=== PATIENT | female | born 1935 | race Caucasian/White ===

== ENCOUNTER 2016-06-17 09:57 | Inpatient (IN) | payer OTHER ==
[~2016-06-17] VITALS: Ht 160 cm; Wt 83.3 kg
[~2016-06-17 09:57] MED LIST: ASPI81TA28 PO; B-COCAP2 PO; CLR10 PO; FURO-85 PO; LAVAGE SOLUTION 4000ML PO SCH; LEVO-366 PO; LEVO150T PO; LOSA50TA6 PO; ONDA4TAB46 PO; PENT400T PO; SIMV40TA2 PO; areds PO; prednisone
[2016-06-17] MEDS ORDERED: ONDANSETRON INJ 2 MG/ML 2 ML VIAL IV STA (11:42)
[2016-06-17 12:05] LABS: MEAN CORPUSCULAR HGB CONC 33.3 g/dl (32-36); MEAN PLATELET VOLUME 11.1 fL (7.4-10.4); PLATELET COUNT 208 K/uL (130-400)
[2016-06-17 12:37] LABS: PARTIAL THROMBOPLASTIN RATIO 2.8; PROTHROMBIN TIME (PATIENT) 10.9 SECONDS (9.0-12.0)
[2016-06-17 12:38] LABS: ALB/GLOB RATIO 0.8 (0.9-2); BUN/CREATININE RATIO 21.7 (10-20); CALCIUM 8.6 mg/dl (8.5-10.1); CREATININE 5.2 mg/dl (0.60-1.20)
[2016-06-17 12:49] LABS: BASO % 0.3 %; BASO ABS # 0.02 K/uL (0-0.2); COMPLETE YES; EOS % 1.5 %; HEMATOCRIT 27.6 % (37-47); IG% 0.5 %; LYMPH ABS # 0.79 K/uL (1.2-3.4); MEAN CELL VOLUME 87.3 fL (80-100); MEAN CORPUSCULAR HEMOGLOBIN 29.1 pg (25-34); MONO % 14.7 %; RED BLOOD COUNT 3.16 M/uL (4.2-5.4)
[2016-06-17] MEDS ORDERED: SODIUM CHLORIDE 0.9% 1000ML 1,000 ML IV STA ×2 (13:00→15:05)
[2016-06-17 14:11] VITALS: Ht 160 cm; Wt 83.3 kg
[2016-06-17] MEDS ORDERED: ALUMINUM/MAGNESIUM/SIMETH (MAALOX MAX) 30 ML UDC PO PRN (14:45)
[2016-06-17] MEDS ORDERED: MAGNESIUM HYDROXIDE SUSP 30 ML UDC PO PRN (14:45)
[2016-06-17] MEDS ORDERED: ONDANSETRON INJ 2 MG/ML 2 ML VIAL IV PRN (14:45)
[2016-06-17] MEDS ORDERED: POLYETHYLENE (MIRALAX) 17 GM PACK PO PRN (14:45)
[2016-06-17] MEDS ORDERED: SODIUM CHLORIDE 0.9% 1000ML 1,000 ML IV SCH (15:00)
[2016-06-17] MEDS ORDERED: DiphenhydrAMINE INJ 12.5 MG in SYRINGE 0 ML IV PRN (15:00)
[2016-06-17] MEDS ORDERED: DiphenhydrAMINE HCL 50 MG/ML VIAL IV PRN (15:15)
[2016-06-17] MEDS ORDERED: CYCLOBENZAPRINE HCL 10 MG TAB PO STA (15:46)
[2016-06-17 16:04] VITALS: BP 129/71; PULSE 94; TEMP 36.6; O2SAT 96
[2016-06-17] MEDS: ACETAMINOPHEN 325 MG TAB PO PRN (16:17)
[2016-06-17] MEDS: SODIUM CHLORIDE 0.9% 1000ML 1,000 ML IV SCH (16:17)
[2016-06-17 16:50] VITALS: O2SAT 96
--- NOTE | 2016-06-17 17:05 | History and Physical ---
History & Physical Date & Time of Service: Jun 17, 2016 at 15:57 Chief Complaint: Acute Kidney Injury Primary Care Physician: Aurelio Chew M.D. History of Present Illness Source: patient, family (son and daughter) Pt is an 80 year old female with a history of HTN, CKD III, peripheral arterial disease and venous insufficiency with chronic L leg wounds, and AAA measuring 5.0 cm on 03/05/16 who presented to the hospital for two days of rectal bleeding. Her son describes the bleeding as bright red with dark brown stool, and estimates about one cup in total, which has been gradually worsening over the last two days. He reports no melena. She has had worsening diarrhea and fatigue over the last few days as well. She has been on multiple antibiotics recently for non-healing L leg ulcers secondary to her vascular disease and a fall in November 2015. She is currently on day 12 of 14 of Levaquin, which she was started after a wound culture from a debridement was positive for Staph. She also reports nausea and vomiting secondary to the antibiotics. She reports occasional bilateral lower abdominal pain, but no increased pain acutely. She reports a history of hemorrhoids since having her children decades ago, but has never had bleeding like this before. Her last colonoscopy was in her early 70s, at which time an adenomatous polyp was noted. Her son reports that she has generally been declining in health since her fall in November 2015. She broke her arm at that time and has had problems with the non- healing leg wounds requiring wound care. In addition, she has had a diffuse itchy rash mostly on her arms and legs secondary to the antibiotics. She estimates the rash has been present approximately 2 months. The rash has not extended to her face. She has been treating this with Benadryl and cortisone. Regarding her AAA, she reports that this has been stable and that her surgeon recommended against any surgery. She had two surgeries in April 2016 addressing her peripheral vascular disease. For HTN, she is on Losartan and Lasix. Son also notes that she has been extremely inactive for the past 2 weeks and though she can ambulate independently, does so much less. She has been largely immobile over the last couple of weeks and has been mostly lying in bed. She reports decreased appetite, and over the last 6 months there is an estimated 25 pound weight loss. There are major stressors at home particularly the state of health of her who was recently admitted for CHF and is currently at [facility] for rehabilitation. She has had back pain over this time period as well, which she describes as spasms in her bilateral lower back, for which she normally takes Tylenol. She lives at home with her . The son is currently living in the house with them to provide daily care. She was generally independent prior to her fall, but has needed help from her son with ADLs since then. At this time she denies any chest pain or shortness of breath She denies fevers, chills or nightsweats No nausea or vomiting at this time. Past Medical/Surgical History Medical Problems: (1) Hypertension Status: Chronic Family History Patient reports no known family medical history. Mother with anemia. Father of AAA. Two sisters with AAA and cousin with brain aneurysm. Social History Smoking Status: Former Smoker (40 pack year; quit 20 years ago) Alcohol Use: occasionally Drug Use: none Marital Status: Housing status: lives with family (son lives at [employer] with them) Occupational Status: retired Multi-Drug Resistant Organisms History of MDRO: No Allergies Coded Allergies: Erythromycin (Verified Allergy, Intermediate, RASH, 06/17/16) Iodinated Diagnostic Agents (Verified Allergy, Intermediate, RASH, 06/17/16 ) Latex1 -Allergic Contact Dermititis (Verified Allergy, Mild, RASH, 06/17/16 ) Uncoded Allergies: ALL "RUBEN" (Allergy, Unknown, UNKNOWN, 11/13/08) Home Medications Scheduled Aspirin (Aspirin Ec), 81 MG PO DAILY Furosemide (Lasix), 1 TAB PO DAILY Levofloxacin (Levaquin), 500 MG PO DAILY Levothyroxine Sodium (Synthroid), 150 MCG PO DAILY Losartan Potassium (Cozaar), 50 MG PO DAILY Pentoxifylline (Trental), 400 MG PO TID Simvastatin (Zocor), 40 MG PO DAILY [areds], 1 TAB PO BID Scheduled PRN Ondansetron Hcl (Zofran), 4 MG PO for Nausea Review of Systems Constitutional: + fatigue, + weight loss ENT: + nasal symptoms (congestion) Respiratory: No cough, No shortness of breath Cardiovascular: No chest pain Abdomen: + nausea Genitourinary - Female: No dysuria Psychiatric: + depression symptoms Endocrine: + fatigue Integumentary: + itch, + rash Physical Exam Vital Signs Date Time Temp Pulse Resp B/P Pulse Ox O2 Delivery O2 Flow Rate FiO2 06/17/16 14:11 Room Air 06/17/16 14:00 85 19 129/60 98 Room Air 06/17/16 13:53 84 06/17/16 12:00 91 16 137/91 98 Room Air 06/17/16 10:22 82 06/17/16 10:05 36.4 86 20 108/52 95 Room Air General Appearance: WD/WN, + mild distress, + pertinent finding (Elderly female lying in bed, mild distress secondary to back pain. ) Head: normocephalic, atraumatic Eyes: normal inspection, PERRL, EOMI, sclerae normal, + pertinent finding ( Conjunctival pallor. ) ENT: hearing grossly normal, + nasal congestion Neck: supple, no adenopathy, no JVD, no carotid bruits, trachea midline Respiratory/Chest: lungs clear, normal breath sounds, no respiratory distress, no accessory muscle use Cardiovascular: regular rate, rhythm, no gallop, + pertinent finding (2/6 systolic murmur best heard at the L lower sternal border. 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 Dressing in place over L tibial area. 1+ edema in BLE. ) Neurologic/Psych: no motor/sensory deficits, alert, oriented x 3 Skin: warm/dry, + pallor, + pertinent finding (Diffuse patchy erythematous rash to arms, hands, legs, and lower abdomen. ) Lymphatic: no adenopathy Diagnostics Laboratory Results Results Past 24 Hours Test 06/17/16 11:40 Range/Units White Blood Count 6.60 4.8-10.8 K/uL Red Blood Count 3.16 4.2-5.4 M/uL Hemoglobin 9.2 12.0-16.0 g/dL Hematocrit 27.6 37-47 % Mean Corpuscular Volume 87.3 80-100 fL Mean Corpuscular Hemoglobin 29.1 25-34 pg Mean Corpuscular Hemoglobin Concent 33.3 32-36 g/dl Platelet Count 208 130-400 K/uL Mean Platelet Volume 11.1 7.4-10.4 fL Neutrophils (%) (Auto) 71.0 % Lymphocytes (%) (Auto) 12.0 % Monocytes (%) (Auto) 14.7 % Eosinophils (%) (Auto) 1.5 % Basophils (%) (Auto) 0.3 % Neutrophils # (Auto) 4.69 1.4-6.5 K/uL Lymphocytes # (Auto) 0.79 1.2-3.4 K/uL Monocytes # (Auto) 0.97 0.11-0.59 K/uL Eosinophils # (Auto) 0.10 0-0.5 K/uL Basophils # (Auto) 0.02 0-0.2 K/uL RDW Standard Deviation 55.7 36.4-46.3 fL RDW Coefficient of Variation 17.4 11.5-14.5 % Immature Granulocyte % (Auto) 0.5 % Immature Granulocyte # (Auto) 0.03 0.00-0.02 K/uL Prothrombin Time 10.9 9.0-12.0 SECONDS Prothromb Time International Ratio 1.0 0.9-1.1 Activated Partial Thromboplast Time 73.5 21.0-31.0 SECONDS Partial Thromboplastin Ratio 2.8 Sodium Level 141 136-145 mmol/L Potassium Level 5.0 3.5-5.1 mmol/L Chloride Level 109 98-107 mmol/L Carbon Dioxide Level 18 21-32 mmol/L Anion Gap 14.0 3-11 mmol/L Blood Urea Nitrogen 113 7-18 mg/dl Creatinine 5.20 0.60-1.20 mg/dl Est Creatinine Clear Calc Drug Dose 8.8 ml/min Estimated GFR () 8.4 Estimated GFR (Non- 7.2 BUN/Creatinine Ratio 21.7 10-20 Random Glucose 98 70-99 mg/dl Calcium Level 8.6 8.5-10.1 mg/dl Total Bilirubin 0.3 0.2-1 mg/dl Aspartate Amino Transf (AST/SGOT) 19 15-37 U/L Alanine Aminotransferase (ALT/SGPT) 14 12-78 U/L Alkaline Phosphatase 60 45-117 U/L Total Protein 6.0 6.4-8.2 gm/dl Albumin 2.7 3.4-5.0 gm/dl Globulin 3.3 2.5-4.0 gm/dl Albumin/Globulin Ratio 0.8 0.9-2 Prealbumin 24.2 20-40 mg/dl Diagnostic Radiology CT abdomen without contrast pending at this time. EKG No EKG at this time Impression Assessment and Plan Pleasant 80 year old female with a history of CKD III, peripheral arterial disease and venous insufficiency with chronic L leg wounds, and AAA measuring 5.0 cm. She presents today with a history of acute rectal bleeding and LOLA. Rectal bleeding - Differential diagnosis for the bleeding includes C.difficile coliti, hemorrhoids, colon cancer, diverticular bleeding, . - Aromas study to further assess would be CT with contrast but given elected Cr 5.2, will evaluate with a CT abdomen/pelvis non-contrast with colon prep - Will obtain Hemoccult stool - C. difficile toxin assay pending - Will hold Levaquin at this time. - Trend H&H as below New onset anemia - Hemoglobin of 9.2, down from her baseline of 12-13. INR is stable at 1.0. - Will continue to monitor H&H q6h as well as CBC daily. - Pt is typed and crossed. Will plan to transfuse if her Hb falls below 7.0. - Currently no evidence of ongoing bleeding - Would also consider nutritional etiology given poor PO intake and weight loss: will check B12, folate and iron studies LOLA on background of CKD III - Cr 5.2 today; 1.1. Creatinine is currently 5.2. ; BUN/Cr ratio > 20 suggestive of pre-renal etiology - NSS bolus 1 L, then 125 mL/hr NS continuous. - Will monitor BMP today at 1800; daily checks - Avoid nephrotoxins. Chronic leg wounds secondary to venous insufficiency and peripheral arterial disease/lymphedema. - Will consult wound care, as they have been involved with patient Drug rash likely related to antibiotics - Will give Benadryl and discontinue Levaquin at this time. Chronic back pain - Likely in part due to immobility and deconditioning - Require frequent repositioning - Can attempt heat and/or cold packs - Will treat with Flexeril and Tylenol PRN. NO NSAIDs given rectal bleeding. Infrarenal AAA - This has been stable per pt, currently measuring 5.0 cm. - Seen at [facility] for evaluation; noted that she is not a candidate for corrective surgery - Will further assess this with abd/pelvis CT; noted that study is suboptimal without contrast - Low suspicion for rupture given hemodynamic stability Depression - History of reduced desire to move, low mood and weight loss - Superimposing depression a poor prognostic factor for recovery, will try and identify during hospitalization - Will allow overnight with attempted pain control and re-assess Failure to thrive/Weight loss - Will obtain prealbumin to assess metabolic state. - Will consult nutrition as well as PT/OT. - Will consult nutrition DVT prophylaxis - Will hold on anticoagulation at this point due to drop in H&H - SCD Disposition - Med/Surg Level of Care Med/Surg Advanced Directives Existing Advance Directive: Yes Existing Living Will: Yes Existing Power of Radio Dispatcher: Yes Resuscitation Status FULL RESUSCITATION VTE Prophylaxis VTE Risk Assessment Done? Y/N: Yes Risk Level: Moderate Given or contraindicated: SCD's (As tolerated s/p chronic leg wounds) Reviewed: Pt Seen/Exam by Me History 80 y/o F here with rectal bleeding and noted to have acute renal failure Constitutional: denies: fever Respiratory: negative: short of breath Cardiovascular: denies chest pain Gastrointestinal/Abdominal: positive: other (rectal bleeding) General Appearance: no apparent distress Respiratory: lungs clear, no respiratory distress Cardiovascular: regular rate, rhythm Gastrointestinal: normal bowel sounds, non tender, soft Neurologic/Psychiatric: alert, oriented x 3 Skin Characteristics: warm/dry Assessment/Plan I have reviewed the medical record and performed a history and physical examination of this patient today. I have discussed the case with Dr. Rubio. The above note reflects my findings, conclusions, and recommendations.
[2016-06-17] MEDS ORDERED: SODIUM CHLORIDE 0.65% NA SOLN 45 ML (OCEAN) PRN (18:00)
--- NOTE | 2016-06-17 18:04 | DIAGNOSTIC IMAGING REPORT ---
ABDOMEN AND PELVIS CT WITH ORAL CONTRAST CT DOSE: 782.46 mGy.cm HISTORY: Rectal bleeding. Diarrhea. TECHNIQUE: Multiaxial CT images of the abdomen and pelvis were performed following the use of oral contrast. COMPARISON STUDY: Abdomen and pelvis CT 02/24/2016. FINDINGS: The lung bases are clear. No pneumoperitoneum. No pneumatosis. No suspicious lytic or blastic osseous lesions. No hepatic or splenic masses. Stable intra and extra hepatic bile duct dilatation. The unenhanced pancreas and right adrenal gland are unremarkable. Prior cholecystectomy. Stable scarring and a focal calcification within the upper pole the left kidney. No hydronephrosis. Stable 1 cm right renal hypodense lesion. No retroperitoneal lymphadenopathy. 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 Persistent aneurysmal dilatation of the juxtarenal abdominal aorta. This measures up to 4.9 x 4.0 cm. This remains unchanged. The bladder is unremarkable. A 2.7 cm cyst within the left ovary remains stable. Colonic diverticulosis. No bowel wall thickening or obstruction. The appendix appears to be surgically absent. A 3 cm left adrenal nodule is again noted. IMPRESSION: 1. No bowel wall thickening or obstruction. 2. No change in the 4.9 x 4.0 cm juxtarenal abdominal aortic aneurysm. 3. No change in the chronically occluded right common iliac artery. 4. Colonic diverticulosis. 5. No change in the intra and extra hepatic bile duct dilatation. Prior cholecystectomy. 6. A 2.7 cm left ovarian cyst, unchanged. 7. A stable 3 cm left adrenal gland nodule. Electronically signed by: Weston Hyman M.D. 06/17/2016 6:01 PM Dictated Date/Time: 06/17/2016 5:52 PM
[2016-06-17 18:13] LABS: HEMATOCRIT 28.6 % (37-47)
--- NOTE | 2016-06-17 18:32 | EMERGENCY ROOM VISIT NOTE ---
History Report prepared by Lluvia: Jhonny Romero Under the Supervision of: Dr. Hitesh Howard M.D. First contact with patient: 11:30 Chief Complaint: RECTAL BLEEDING Stated Complaint: RECTAL BLEEDING/DIARRHEA Nursing Triage Summary: Patient presents via EMS c/o rectal bleeding and diarrhea x48 hrs. EMS states patients stool brown, incontinent. Patient states bright red blood noted when wiping. EMS states patient has been on antibiotics since January for Left foot wound. Dressing noted to left foot. Patient seen at wound care for left foot wound. Patient c/o dizziness when standing and left shoulder pain due to prior injury. Hx of hemorrhoids. History of Present Illness The patient is an 80 year old female who presents to the Emergency Room with complaints of acute blood in her stool that she noticed today. The patient has been experiencing vomiting and watery diarrhea for the past two days. She has also been becoming progressively weaker. Her son also states that she has not eaten any solid food in about 32 hours. The patient denies any fevers or abdominal pain. The patient has a history of hemorrhoids. She experiences chronic lower back pain secondary to spinal stenosis. She takes Tylenol and Advil for the chronic pain. The patient follows up at the wound clinic for an ulceration to her left leg. She is currently on Levaquin. The patient was on Bactrim and Cephalexin prior to the Levaquin. She denies any blood thinner use. Source of History: patient, family (son) Onset: today Position: other (rectal) Quality: other (blood in stool) Timing: other (acute) Associated Symptoms: + diarrhea, + vomiting, + weakness, No abdominal pain, No fevers Review of Systems See HPI for pertinent positives & negatives. A total of 10 systems reviewed and were otherwise negative. Past Medical & Surgical Medical Problems: (1) Acute kidney injury (2) Hypertension Family History Patient reports no known family medical history. Social History Smoking Status: Former Smoker Drug Use: none Marital Status: Housing Status: lives with family Occupation Status: retired Current/Historical Medications Scheduled Aspirin (Aspirin Ec), 81 MG PO DAILY Furosemide (Lasix), 1 TAB PO DAILY Levofloxacin (Levaquin), 500 MG PO DAILY Levothyroxine Sodium (Synthroid), 150 MCG PO DAILY Losartan Potassium (Cozaar), 50 MG PO DAILY Pentoxifylline (Trental), 400 MG PO TID Simvastatin (Zocor), 40 MG PO DAILY [areds], 1 TAB PO BID Scheduled PRN Ondansetron Hcl (Zofran), 4 MG PO for Nausea Allergies Coded Allergies: Erythromycin (Verified Allergy, Intermediate, RASH, 06/17/16) Iodinated Diagnostic Agents (Verified Allergy, Intermediate, RASH, 06/17/16 ) Latex1 -Allergic Contact Dermititis (Verified Allergy, Mild, RASH, 06/17/16 ) Uncoded Allergies: ALL "RUBEN" (Allergy, Unknown, UNKNOWN, 11/13/08) Physical Exam Vital Signs Date Time Temp Pulse Resp B/P Pulse Ox O2 Delivery O2 Flow Rate FiO2 06/17/16 14:11 Room Air 06/17/16 14:00 85 19 129/60 98 Room Air 06/17/16 13:53 84 06/17/16 12:00 91 16 137/91 98 Room Air 06/17/16 10:22 82 06/17/16 10:05 36.4 86 20 108/52 95 Room Air Physical Exam Constitutional: Vital signs reviewed. Eyes: Pupils are equal round reactive to light. Conjunctiva are noninjected. ENT: Pharynx is clear without erythema or exudate. Mucous membranes are dry. Neck supple without meningeal signs. Respiratory: Clear to auscultation bilaterally. Breath sounds are equal bilaterally. Cardiovascular: Regular rate and rhythm. No rubs or gallops. GI: Soft, nondistended and nontender. Bowel sounds are present. Musculoskeletal: Bilateral lower extremity edema. Bandaged ulceration on the left leg. Neurological: The patient is awake and alert. No focal deficits. Psychiatric: Normal affect. Rectal: External hemorrhoids. Guaiac positive brown stool. Medical Decision & Procedures Laboratory Results 06/17/16 11:40 Red Blood Count 3.16, Mean Corpuscular Volume 87.3, Mean Corpuscular Hemoglobin 29.1, Mean Corpuscular Hemoglobin Concent 33.3, Mean Platelet Volume 11.1, Neutrophils (%) (Auto) 71.0, Lymphocytes (%) (Auto) 12.0, Monocytes (%) (Auto) 14.7, Eosinophils (%) (Auto) 1.5, Basophils (%) (Auto) 0.3, Neutrophils # (Auto ) 4.69, Lymphocytes # (Auto) 0.79, Monocytes # (Auto) 0.97, Eosinophils # (Auto ) 0.10, Basophils # (Auto) 0.02 Test 06/17/16 11:40 White Blood Count 6.60 K/uL (4.8-10.8) Red Blood Count 3.16 M/uL (4.2-5.4) Hemoglobin 9.2 g/dL (12.0-16.0) Hematocrit 27.6 % (37-47) Mean Corpuscular Volume 87.3 fL (80-100) Mean Corpuscular Hemoglobin 29.1 pg (25-34) Mean Corpuscular Hemoglobin Concent 33.3 g/dl (32-36) Platelet Count 208 K/uL (130-400) Mean Platelet Volume 11.1 fL (7.4-10.4) Neutrophils (%) (Auto) 71.0 % Lymphocytes (%) (Auto) 12.0 % Monocytes (%) (Auto) 14.7 % Eosinophils (%) (Auto) 1.5 % Basophils (%) (Auto) 0.3 % Neutrophils # (Auto) 4.69 K/uL (1.4-6.5) Lymphocytes # (Auto) 0.79 K/uL (1.2-3.4) Monocytes # (Auto) 0.97 K/uL (0.11-0.59) Eosinophils # (Auto) 0.10 K/uL (0-0.5) Basophils # (Auto) 0.02 K/uL (0-0.2) RDW Standard Deviation 55.7 fL (36.4-46.3) RDW Coefficient of Variation 17.4 % (11.5-14.5) Immature Granulocyte % (Auto) 0.5 % Immature Granulocyte # (Auto) 0.03 K/uL (0.00-0.02) Prothrombin Time 10.9 SECONDS (9.0-12.0) Prothromb Time International Ratio 1.0 (0.9-1.1) Activated Partial Thromboplast Time 73.5 SECONDS (21.0-31.0) Partial Thromboplastin Ratio 2.8 Est Creatinine Clear Calc Drug Dose 8.8 ml/min Total Bilirubin 0.3 mg/dl (0.2-1) Aspartate Amino Transf (AST/SGOT) 19 U/L (15-37) Alanine Aminotransferase (ALT/SGPT) 14 U/L (12-78) Alkaline Phosphatase 60 U/L (45-117) Total Protein 6.0 gm/dl (6.4-8.2) Albumin 2.7 gm/dl (3.4-5.0) Globulin 3.3 gm/dl (2.5-4.0) Albumin/Globulin Ratio 0.8 (0.9-2) Prealbumin 24.2 mg/dl (20-40) Laboratory results as reviewed by me. Medications Administered Medications (Trade) Dose Ordered Sig/Jose Route Start Time Stop Time Status Last Admin Dose Admin Sodium Chloride (Nss 1000ml) 1,000 ml @ 80 mls/hr [id number] STAT IV 06/17/16 13:00 06/17/16 15:05 DC 06/17/16 13:16 80 MLS/HR Acetaminophen (Tylenol Tab) 650 mg Q4H PRN PO 06/17/16 14:45 07/17/16 14:44 06/17/16 16:17 650 MG ED Course 1133: The patient was evaluated in room B4a. A complete history and physical exam was performed. 1142: Zofran 4 mg IV. 1256: Discussed the case with Dr. Hernandez, [facility] Hospitalist. The patient will be evaluated. Medical Decision This is an 80-year-old female who presents with rectal bleeding and generalized weakness. Differential diagnosis includes GI bleed, anemia, dehydration, gastroenteritis, hemorrhoidal bleed. I did perform a limited focused review of portions of the patient's old chart on the electronic medical record. The patient was seen by the wound care clinic on June 04 for venous stasis ulceration of the left leg. I did evaluate the patient as noted above. IV access was established. The patient was treated with normal saline IV. She was given a liter of normal saline prior to my evaluation. She was also given Zofran IV. I did order and review the patient's blood work as noted in the electronic medical record. She is anemic with a hemoglobin of 9. She also has acute renal failure with an elevated creatinine but normal potassium. I did discuss the test results with the patient and her son. I did order type and screen for the patient. She remains hemodynamically stable. She was continued on normal saline IV. I did discuss the case with the hospitalist and lining caser. Consults Time Called: 1250 Consulting Physician: Dr. Hernandez [facility] [place] Hospitalist Returned Call: [phone]: Discussed the case with Dr. Hernandez [facility] Hospitalist. The patient will be evaluated. Impression Primary Impression: ARF (acute renal failure) Additional Impressions: Vomiting and diarrhea GI bleeding Acute blood loss anemia Scribe Attestation The scribe's documentation has been prepared under my direct and personally reviewed by me in its entirety. I confirm that the note above accurately reflects all work, treatment, procedures, and medical decision making performed by me. Departure Information Dispostion Being Evaluated By Hospitalist Referrals Aurelio Chew M.D. (PCP) Patient Instructions A Signature Page Problem Qualifiers Primary Impression: ARF (acute renal failure) Acute renal failure type: unspecified Qualified Codes: N17.9 - Acute kidney failure, unspecified Additional Impressions: GI bleeding GI bleed type/associated pathology: unspecified gastrointestinal hemorrhage type Qualified Codes: K92.2 - Gastrointestinal hemorrhage, unspecified
[2016-06-17 18:52] LABS: BUN/CREATININE RATIO 23.6 (10-20); CALCIUM 8.5 mg/dl (8.5-10.1); CREATININE 4.5 mg/dl (0.60-1.20); POTASSIUM 4.6 mmol/L (3.5-5.1)
[2016-06-17] MEDS ORDERED: CYCLOBENZAPRINE HCL 5 MG TAB PO SCH (20:00)
[2016-06-17] MEDS: LAVAGE SOLUTION 4000ML PO SCH (21:08)
[2016-06-17] MEDS: PANTOprazole INJ 40 MG in SYRINGE 0 ML IV SCH (21:08)
[2016-06-17] MEDS: FLUTICASONE PROPIONATE NA SPR 16 GM BTL SCH (21:09)
[2016-06-17 23:52] VITALS: BP 95/61; PULSE 77; TEMP 36.5; O2SAT 96
[2016-06-18] MEDS: SODIUM CHLORIDE 0.9% 1000ML 1,000 ML IV SCH ×2 (00:04→08:09)
[2016-06-18 00:43] LABS: HEMATOCRIT 26.3 % (37-47)
[2016-06-18] MEDS: ACETAMINOPHEN 325 MG TAB PO PRN ×3 (01:59→20:39)
[2016-06-18] MEDS ORDERED: LAVAGE SOLUTION 4000ML PO SCH (06:00)
[2016-06-18 06:18] LABS: HEMATOCRIT 25.3 % (37-47); MEAN CELL VOLUME 88.2 fL (80-100); MEAN CORPUSCULAR HEMOGLOBIN 29.3 pg (25-34); MEAN CORPUSCULAR HGB CONC 33.2 g/dl (32-36); PLATELET COUNT 198 K/uL (130-400); RED BLOOD COUNT 2.87 M/uL (4.2-5.4)
[2016-06-18] MEDS: LEVOTHYROXINE 150 MCG TAB PO SCH (06:23)
[2016-06-18] MEDS: LAVAGE SOLUTION 4000ML PO SCH (06:33)
[2016-06-18 06:45] LABS: BUN/CREATININE RATIO 26.9 (10-20); CALCIUM 8.1 mg/dl (8.5-10.1); CREATININE 3.5 mg/dl (0.60-1.20)
[2016-06-18 06:55] LABS: THYROID STIMULATING HORMONE 2.1 uIu/ml (0.300-4.500)
[2016-06-18 07:43] VITALS: BP 102/61; PULSE 76; TEMP 36.5; O2SAT 93
--- NOTE | 2016-06-18 07:54 | Clinical Documentation Query ---
Dr. ESCALANTE CHITRA : CLINICAL DOCUMENTATION QUERY Patient is an 80 year old female admitted for rectal bleeding, "new onset anemia", and LOLA on CKD III. Hemoglobin and hematocrit on admission were 9.2 g/dl and 27.6%. Most recent values for 04/21/16 were 12.5 g/dl and 39.7%. He has been evaluated by CT scan of the abdomen and pelvis, stool for OB, C.Difficile toxin assay, serial hematology, transfusion as necessary, and GI consultation. In your clinical opinion is this patient being managed for: ( ) Acute blood loss anemia secondary to rectal bleeding ( ) Other explanation of clinical findings (Please Explain) ( ) Unable to determine (Please Define) ( ) Need to Discuss ( ) Not Agree The medical record reflects the following clinical findings, treatment, and risk factors. Clinical Indicators: As above Treatment: He has been evaluated by CT scan of the abdomen and pelvis, stool for OB, C.Difficile toxin assay, serial hematology, transfusion as necessary, and GI consultation Risk Factors: Age, infection, recent antibiotics, poor nutrition, ASA use Please clarify and document your clinical opinion in the progress notes and discharge summary. Terms such as "probable", "suspected", "likely", "questionable", "possible", or "still to be ruled out" are acceptable. IF IN AGREEMENT, YOU MUST DOCUMENT ABOVE DIAGNOSTIC STATEMENT IN DAILY PROGRESS NOTES AND DISCHARGE SUMMARY. This document is not part of the patient's record. Thank You, Ananda Neal, LIDIA [id number]
[2016-06-18] MEDS: SIMVASTATIN 40 MG TAB PO SCH (08:08)
[2016-06-18] MEDS: PANTOprazole INJ 40 MG in SYRINGE 0 ML IV SCH ×2 (08:08→20:37)
[2016-06-18] MEDS: FLUTICASONE PROPIONATE NA SPR 16 GM BTL SCH ×2 (08:08→20:36)
--- NOTE | 2016-06-18 08:09 | DIAGNOSTIC IMAGING REPORT ---
RENAL ULTRASOUND CLINICAL HISTORY: Acute kidney injury. COMPARISON STUDY: CT of the abdomen and pelvis June 17, 2016. TECHNIQUE: Sonography of the kidneys and the urinary bladder was performed. FINDINGS: The right kidney measures 9.2 cm in maximal dimension and the left measures 9.8 cm. There is no hydronephrosis. There is moderate renal cortical thinning. The left kidney is partially obscured. The bladder was unremarkable by sonography. IMPRESSION: 1. No hydronephrosis. 2. Moderate renal cortical thinning. Electronically signed by: Duglas Jerry M.D. 06/18/2016 8:07 AM Dictated Date/Time: 06/18/2016 8:06 AM
[2016-06-18] MEDS: SODIUM CHLORIDE 0.45% 1000ML 1,000 ML IV SCH ×2 (10:20→20:36)
[2016-06-18 15:40] VITALS: BP 128/75; PULSE 76; TEMP 36.4; O2SAT 94
[2016-06-18 16:15] VITALS: O2SAT 96
--- NOTE | 2016-06-18 16:17 | Medical Student: [facility] ---
Med Student Progress Note Date of Service Jun 18, 2016. Subjective Pt evaluation today including: conversation w/ patient, physical exam, chart review, lab review, review of studies Pt is an 80 year old female with a history of HTN, CKD III, peripheral arterial disease and venous insufficiency with chronic L leg wounds, and AAA measuring 5.0 cm on 03/05/16 who presented to the hospital for rectal bleeding and LOLA. She has had diarrhea overnight secondary to the colonoscopy bowel prep. Nursing reports that the stool was dark brown with blood while wiping. There was no blood mixed in with the stool. She c/o pain and feeling like her anus is raw from the diarrhea. She denies abdominal pain, nausea, or vomiting. She c/o continued back pain, chronic. Review of Systems Constitutional: + fatigue, + weakness Respiratory: No shortness of breath Cardiac: No chest pain Abdomen: + see HPI Musculoskeletal: + problem reported (back pain) Psychiatric: + depression symptoms Skin: + itch, + problem reported (Chronic leg wounds. ), + rash All Other Systems: Reviewed and Negative Objective Vital Signs Date Time Temp Pulse Resp B/P Pulse Ox O2 Delivery O2 Flow Rate FiO2 06/18/16 10:45 Room Air 06/18/16 07:43 36.5 76 20 102/61 93 Room Air 06/18/16 00:00 Room Air 06/17/16 23:52 36.5 77 18 95/61 96 Room Air 06/17/16 16:50 96 Room Air 06/17/16 16:04 36.6 94 18 129/71 96 Room Air Physical Exam General Appearance: no apparent distress, + pertinent finding (Pale elderly female sitting up comfortably in chair, attempting to drink bowel prep solution. ) Eyes: bilateral eyes pertinent finding (Conjunctival pallor. ) ENT: hearing grossly normal, pharynx normal Neck: no JVD, no carotid bruits, trachea midline Respiratory/Chest: chest non-tender, lungs clear, normal breath sounds, no respiratory distress, no accessory muscle use Cardiovascular: regular rate, rhythm, no gallop, no JVD, + pertinent finding (2 /6 systolic murmur heard at the L upper and L lower sternal border. ) Abdomen: normal bowel sounds, non tender, soft, + pertinent finding (External hemorrhoids present per nursing staff. Report of raw anus secondary to diarrhea. Exam deferred for patient comfort. 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 Dressing in place over L tibial area. 1+ edema in BLE) Skin: warm/dry, + pallor, + pertinent finding (Diffuse patchy erythematous rash to arms, hands, legs, and lower abdomen.) Comments: General Appearance: WD/WN, + mild distress, + pertinent finding (Elderly female lying in bed, mild distress secondary to back pain. ) Head: normocephalic, atraumatic Eyes: normal inspection, PERRL, EOMI, sclerae normal, + pertinent finding ( Conjunctival pallor. ) ENT: hearing grossly normal, + nasal congestion Neck: supple, no adenopathy, no JVD, no carotid bruits, trachea midline Respiratory/Chest: lungs clear, normal breath sounds, no respiratory distress, no accessory muscle use Cardiovascular: regular rate, rhythm, no gallop, + pertinent finding (2/6 systolic murmur best heard at the L lower sternal border. 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 Dressing in place over L tibial area. 1+ edema in BLE. ) Neurologic/Psych: no motor/sensory deficits, alert, oriented x 3 Skin: warm/dry, + pallor, + pertinent finding (Diffuse patchy erythematous rash to arms, hands, legs, and lower abdomen. ) Lymphatic: no adenopathy Laboratory Results Last 24 Hours Test 06/17/16 16:45 06/17/16 17:58 06/18/16 00:34 06/18/16 05:25 Stool Occult Blood POSITIVE Hemoglobin 9.4 g/dL 8.8 g/dL 8.4 g/dL Hematocrit 28.6 % 26.3 % 25.3 % Sodium Level 143 mmol/L 149 mmol/L Potassium Level 4.6 mmol/L 4.0 mmol/L Chloride Level 110 mmol/L 117 mmol/L Carbon Dioxide Level 19 mmol/L 21 mmol/L Anion Gap 14.0 mmol/L 11.0 mmol/L Blood Urea Nitrogen 106 mg/dl 94 mg/dl Creatinine 4.50 mg/dl 3.50 mg/dl Est Creatinine Clear Calc Drug Dose 10.2 ml/min 13.1 ml/min Estimated GFR () 10.0 13.5 Estimated GFR (Non- 8.6 11.7 BUN/Creatinine Ratio 23.6 26.9 Random Glucose 97 mg/dl 81 mg/dl Calcium Level 8.5 mg/dl 8.1 mg/dl White Blood Count 5.30 K/uL Red Blood Count 2.87 M/uL Mean Corpuscular Volume 88.2 fL Mean Corpuscular Hemoglobin 29.3 pg Mean Corpuscular Hemoglobin Concent 33.2 g/dl RDW Standard Deviation 57.1 fL RDW Coefficient of Variation 17.6 % Platelet Count 198 K/uL Mean Platelet Volume 11.0 fL Vitamin B12 Level 869 pg/mL Folate 11.68 ng/mL Thyroid Stimulating Hormone (TSH) 2.100 uIu/ml Test 06/18/16 08:39 06/18/16 13:10 06/18/16 13:40 Lactic Acid Level 2.1 mmol/L 2.1 mmol/L Hemoglobin 8.4 g/dL Hematocrit 25.0 % CT abdomen/pelvis with oral contrast: IMPRESSION: 1. No bowel wall thickening or obstruction. 2. No change in the 4.9 x 4.0 cm juxtarenal abdominal aortic aneurysm. 3. No change in the chronically occluded right common iliac artery. 4. Colonic diverticulosis. 5. No change in the intra and extra hepatic bile duct dilatation. Prior cholecystectomy. 6. A 2.7 cm left ovarian cyst, unchanged. 7. A stable 3 cm left adrenal gland nodule. RENAL ULTRASOUND CLINICAL HISTORY: Acute kidney injury. COMPARISON STUDY: CT of the abdomen and pelvis June 17, 2016. TECHNIQUE: Sonography of the kidneys and the urinary bladder was performed. FINDINGS: The right kidney measures 9.2 cm in maximal dimension and the left measures 9.8 cm. There is no hydronephrosis. There is moderate renal cortical thinning. The left kidney is partially obscured. The bladder was unremarkable by sonography. IMPRESSION: 1. No hydronephrosis. 2. Moderate renal cortical thinning. Assessment and Plan Assessment and Plan: Pleasant 80 year old female with a history of CKD III, peripheral arterial disease and venous insufficiency with chronic L leg wounds, and AAA measuring 5.0 cm who is admitted for rectal bleeding and LOAL. Rectal bleeding- CT abd/pelvis showed no bowel wall thickening or obstruction, chronic diverticulosis. Hemoccult stool was positive. C. difficile toxin assay was negative. Gastroenterology saw the pt and discussed at length that colonoscopy and EGD would be the next diagnostic step to determine the source of the GI bleeding. Discussed the risks and benefits of foregoing these procedures, and she decided to not proceed with them at this time as she does not feel that she can tolerate the prep due to the pain and irritation from the diarrhea. - Will continue to hold Levaquin at this time. - Trend H&H as below. - Will also trend lactic acid to evaluate for possible ischemic bowel ( although this is felt to be less likely based on clinic history of no post- prandial pain). Initial lactic acid is slightly elevated at 2.1. New onset anemia- Normal MCV, along with Hx of rectal bleed, suggests acute blood loss as the etiology. Hemoglobin of 8.4, down from 9.2 yesterday and her baseline of 12-13. This could be due to further rectal bleeding vs dilutional anemia from IVF given since yesterday. B12 and folate are WNL. - Will continue to monitor CBC daily. - Pt is typed and crossed. Will plan to transfuse if her Hb falls below 7.0. - Elevated PTT of 75, which is likely secondary to recent antibiotic use. PT/ INR is stable at 1.0. LOLA on background of CKD III - Cr 3.5 today, improved from 5.2 yesterday. BUN/ Cr ratio > 20 suggestive of pre-renal etiology. Renal US showed no hydronephrosis. - Will monitor BMP , daily checks - Avoid nephrotoxins. - Consider UA to rule out nephritic/nephrotic syndrome, although less likely given BUN/Cr ratio and normal renal US. Hypernatremia with Na of 149 - Secondary to 125 mL/hr NS continuous IVF and multiple 0.9% NS boluses given for LOLA. -Will switch to 0.45% NS at 125 mL/hr. Chronic leg wounds secondary to venous insufficiency and peripheral arterial disease/lymphedema. - Will consult wound care, as they have been involved with patient Drug rash likely related to antibiotics - Will give Benadryl and discontinue Levaquin at this time. Chronic back pain - Likely in part due to immobility and deconditioning - Require frequent repositioning - Can attempt heat and/or cold packs - Will treat with Tylenol PRN. NO NSAIDs given rectal bleeding. Infrarenal AAA - Stable on abd CT. - Seen at [facility] for evaluation; noted that she is not a candidate for corrective surgery Depression - History of reduced desire to move, low mood and weight loss - Superimposing depression a poor prognostic factor for recovery, will try and identify during hospitalization - Will allow overnight with attempted pain control and re-assess. - Will discuss starting an SSRI prior to discharge. Failure to thrive/Weight loss - Prealbumin is WNL, speaking against severe malnutrition. B12 and folate also WNL. - Will consult nutrition as well as PT/OT. DVT prophylaxis - Will hold on anticoagulation at this point due to drop in H&H - SCD as tolerated.
--- NOTE | 2016-06-18 17:59 | Family Medicine Progress Note ---
Progress Note Date of Service Jun 18, 2016. Subjective Pt evaluation today including: conversation w/ patient, physical exam, chart review, lab review Pain: Rectal pain today Voiding: no voiding problems, no incontinence, dinh catheter in place Patient not tolerating colon prep; complaining that it is causing her rectal pain Did not sleep overnight due to discomfort. Declining to have colonoscopy as she cannot tolerate preparation Notes "It's just hemarrhoids, it'll get better without anything" Denies any abdominal pain at this time. No nausea or vomiting. Additional Comments: Review of systems otherwise negative. Medications Current Inpatient Medications Medications (Trade) Dose Ordered Sig/Jose Route Start Time Stop Time Status Last Admin Dose Admin Acetaminophen (Tylenol Tab) 650 mg Q4H PRN PO 06/17/16 14:45 07/17/16 14:44 06/18/16 12:07 650 MG Al Hydrox/Mg Hydrox/Simethicone (Maalox Max Susp) 15 ml Q4H PRN PO 06/17/16 14:45 07/17/16 14:44 Magnesium Hydroxide (Milk Of Magnesia Susp) 30 ml Q6H PRN PO 06/17/16 14:45 07/17/16 14:44 Polyethylene (Miralax Powder Packet) 17 gm DAILY PRN PO 06/17/16 14:45 07/17/16 14:44 Ondansetron HCl (Zofran Inj) 4 mg Q6H PRN IV 06/17/16 14:45 07/17/16 14:44 Cyclobenzaprine HCl (Flexeril Tab) 5 mg TID PO 06/17/16 20:00 07/17/16 20:59 Future Hold Diphenhydramine HCl (Benadryl Inj) 12.5 mg TID PRN IV 06/17/16 15:15 07/17/16 15:14 Sodium Chloride ([place] Nasal [place]) 2 sprays Q3H PRN NA 06/17/16 18:00 07/17/16 17:59 Fluticasone Propionate (Flonase Nasal [place]) 1 sprays BID NA 06/17/16 20:00 07/17/16 19:59 06/18/16 08:08 1 SPRAYS Levothyroxine Sodium (Synthroid Tab) 150 mcg DAILYBB PO 06/18/16 06:30 07/18/16 06:29 06/18/16 06:23 150 MCG Simvastatin 40 mg 40 mg DAILY PO 06/18/16 08:00 07/18/16 07:59 06/18/16 08:08 40 MG Pantoprazole Sodium 40 mg/ Syringe 10 ml @ 5 mls/min BID@0900,2100 IV 06/17/16 21:00 07/17/16 20:59 06/18/16 08:08 5 MLS/MIN Sodium Chloride (1/2 Nss 1000ml) 1,000 ml @ 125 mls/hr Q8H IV 06/18/16 09:30 07/18/16 09:29 06/18/16 10:20 125 MLS/HR Enteral Nutritional Formula (Arginaid Extra) 1 box BID PO 06/18/16 20:00 07/18/16 19:59 Objective Vital Signs Date Time Temp Pulse Resp B/P Pulse Ox O2 Delivery O2 Flow Rate FiO2 06/18/16 15:40 36.4 76 20 128/75 94 Room Air 06/18/16 10:45 Room Air 06/18/16 07:43 36.5 76 20 102/61 93 Room Air 06/18/16 00:00 Room Air 06/17/16 23:52 36.5 77 18 95/61 96 Room Air Physical Exam General Appearance: WD/WN, no apparent distress, + moderate distress (tearful) Eyes: normal inspection, EOMI ENT: hearing grossly normal, pharynx normal Neck: supple, no adenopathy, no JVD Respiratory/Chest: lungs clear, no respiratory distress Cardiovascular: regular rate, rhythm, no gallop, no murmur Abdomen: normal bowel sounds, non tender, soft Extremities: non-tender, + pertinent finding (extensive erythema and redness of left foot; right foot less erythematous) Neurologic/Psychiatric: alert, oriented x 3, + depressed affect Skin: normal color, warm/dry, no rash Lymphatic: no adenopathy Laboratory Results Last 24 Hours Test 06/17/16 17:58 06/18/16 00:34 06/18/16 05:25 06/18/16 08:39 Hemoglobin 9.4 g/dL 8.8 g/dL 8.4 g/dL Hematocrit 28.6 % 26.3 % 25.3 % Sodium Level 143 mmol/L 149 mmol/L Potassium Level 4.6 mmol/L 4.0 mmol/L Chloride Level 110 mmol/L 117 mmol/L Carbon Dioxide Level 19 mmol/L 21 mmol/L Anion Gap 14.0 mmol/L 11.0 mmol/L Blood Urea Nitrogen 106 mg/dl 94 mg/dl Creatinine 4.50 mg/dl 3.50 mg/dl Est Creatinine Clear Calc Drug Dose 10.2 ml/min 13.1 ml/min Estimated GFR () 10.0 13.5 Estimated GFR (Non- 8.6 11.7 BUN/Creatinine Ratio 23.6 26.9 Random Glucose 97 mg/dl 81 mg/dl Calcium Level 8.5 mg/dl 8.1 mg/dl White Blood Count 5.30 K/uL Red Blood Count 2.87 M/uL Mean Corpuscular Volume 88.2 fL Mean Corpuscular Hemoglobin 29.3 pg Mean Corpuscular Hemoglobin Concent 33.2 g/dl RDW Standard Deviation 57.1 fL RDW Coefficient of Variation 17.6 % Platelet Count 198 K/uL Mean Platelet Volume 11.0 fL Vitamin B12 Level 869 pg/mL Folate 11.68 ng/mL Thyroid Stimulating Hormone (TSH) 2.100 uIu/ml Lactic Acid Level 2.1 mmol/L Test 06/18/16 13:10 06/18/16 13:40 Lactic Acid Level 2.1 mmol/L Hemoglobin 8.4 g/dL Hematocrit 25.0 % Assessment and Plan Pleasant 80 year old female with a history of CKD III, peripheral arterial disease and venous insufficiency with chronic L leg wounds, and AAA measuring 5.0 cm. Plan today was to have EGD and colonoscopy. Attempted bowel preparation overnight. Patient is not tolerating, complaining of pain with bowel movements and now refusing to have colonoscopy. I have sat down with the patient and her daughter Nereida to discuss reasons for not doing procedure. Patients notes that she will not continue taking the prep as it hurts her rectal area when bowel movements. I have reviewed with her the potential benefit of having colonoscopy, specifically to find possible etiologies of GI bleeding including but not limited to upper GI bleeding sources (gastritis, ulcers, varices) and lower GI (hemarrhoids, diverticulosis/ itis, ischemic bowel, inflammatory bowel disease, non-specific colitis and malignancy). I have also explained to her the risks of not having the procedure including the inability to treat the underlying cause. She notes understanding that not having the colonoscopy means that we cannot intervene to stop the bleeding as we are unable to elucidate the specific cause. She currently feels that her bleeding is merely hemorrhoidal. However, I have expressed my concern, based on her history of severe PAD, long-standing antibiotic usage and prolonged interval since last colonoscopy, that I am concerned about other more insidious causes like ischemic bowel, malignancy, and infectious colitis. She verbalizes her understanding of why the test is important, that she understands the risk of not having it done, and still refuses to try to do prep for colonoscopy. Rectal bleeding - Differential diagnosis for the bleeding includes ischemic bowel, C.difficile , hemorrhoids, colon cancer, diverticular bleeding. - Concern for ischemic bowel given history of extensive PAD. Patient has lactate of 2 x 2 today; will continue to monitor - Rectal examination yesterday did note external hemorrhoids - CT reviewed; not ideal study as there is no contrast - Hemoccult positive - C. difficile toxin assay negative - Patient did not complete Colyte overnight, refusing colonoscopy today Will monitor H&H only Transfusion thresshol at < 7 New onset anemia - Hemoglobin of 9 on arrival. Slight decrease today to 3 Baseline 12-13 - H&H q6h as well as CBC daily. - Pt is typed and crossed. 2 units on hold. Transfuse if Hb < 7.0. LOLA on background of CKD III - Cr improved to 3.5 today, baseline 1.1 - Continue 125 ml/hr; fluids changed due to hypernatremia - Continue BMP checks q12 - Avoid nephrotoxins Chronic leg wounds secondary to venous insufficiency and peripheral arterial disease/lymphedema. - Will consult wound care, as they have been involved with patient Drug rash likely related to antibiotics - Benadryl PRN for itchign - Stop Levaquin Chronic back pain - Likely in part due to immobility and deconditioning - Require frequent repositioning - Heat packs - Tylenol PRN. Flexeril discontinued to reduce risk of over-sedation/delirium Infrarenal AAA - This has been stable per pt, currently measuring 5.0 cm. - Low suspicion for rupture given hemodynamic stability Depression - History of reduced desire to move, low mood and weight loss - Superimposing depression a poor prognostic factor for recovery, will limit patients desire to engage with PT/OT Failure to thrive/Weight loss - Pre-albumin WNL - Consult nutrition - Re-conditioning with PT/OT - Concern for possible malignancy given 25 lb loss over 6 months; would need colonoscopy for definitive evaluation DVT prophylaxis - No DVT prophylaxis due to concern for continued bleeding - SCD if patient can tolerate with chronic wound Code Status - Level I Code Disposition - Med/Surg Continued [facility] stay due to: inadequate po fluid intake, ambulation difficulties Discharge planning: uncertain Reviewed: Pt Seen/Exam by Me History no more rectal bleeding. declining colonoscopy Constitutional: denies: fever Respiratory: negative: short of breath Cardiovascular: denies chest pain Gastrointestinal/Abdominal: negative: abdominal pain Musculoskeletal: positive: back pain (chronic) General Appearance: mild distress Respiratory: lungs clear, no respiratory distress Cardiovascular: regular rate, rhythm Gastrointestinal: normal bowel sounds, non tender, soft Neurologic/Psychiatric: alert, oriented x 3 Assessment/Plan I have reviewed the medical record and performed a history and physical examination of this patient today. I have discussed the case with Dr. Rubio. The above note reflects my findings, conclusions, and recommendations. Refused colonoscopy No active bleeding. Follow h/h. Renal function improving
[2016-06-18 18:59] LABS: BUN/CREATININE RATIO 29.8 (10-20); CALCIUM 7.6 mg/dl (8.5-10.1); CREATININE 2.5 mg/dl (0.60-1.20); POTASSIUM 3.7 mmol/L (3.5-5.1)
[2016-06-18] MEDS: ARGININE EXTRA NUTRITION DRINK 1 BOX PO SCH (20:36)
--- NOTE | 2016-06-18 21:32 | GASTROINTESTINAL CONSULTATION ---
DATE OF CONSULTATION: 06/18/2016 CHIEF COMPLAINT: Melena, pain with rectal bleeding, anemia, acute GI bleeding. HISTORY OF PRESENT ILLNESS: This is an 80-year-old white female presents to the Emergency Room with a couple days of lower GI bleeding that had a various colors including dark stools, some bright red blood; all painless in nature. The patient does not recall any prior history of this type of bleeding and has no known history of peptic ulcer disease. She did have a colonoscopy sometime ago but none recently, by her recollection. On admission to the Emergency Room on June 17 at 1600 hours, the patient was found to be anemic. She has recently been treated and continues on Levaquin for a staph culture on a wound debridement. At times, she has reported nausea and vomiting that she believes is related to the antibiotics. The patient does report a history of hemorrhoids that occurs sometimes when stools are hard and she is bearing down. PAST MEDICAL HISTORY: Significant for hypertension, chronic kidney disease, AAA that is stable, prior colonoscopy many years ago with reported adenomatous polyp and hypertension. The patient also reports a weight loss to an earlier history taker; however, she denied that she was having weight loss on today's description. ALLERGIES: SHE IS ALLERGIC TO ERYTHROMYCIN, IODINE AND LATEX. HOME MEDICATIONS: Include aspirin, furosemide, levofloxacin, levothyroxine, losartan, Trental, simvastatin. She also takes p.r.n., Zofran for nausea. SOCIAL HISTORY: The patient is a former smoker but does not smoke in many years. She occasionally uses alcoholic beverages. She is , lives with her family and is retired. FAMILY HISTORY:Otherwise non contributory REVIEW OF SYSTEMS: Otherwise noncontributory based on 14-point exam. She denies hematemesis, coffee-ground emesis presently. She has no melena or constipation by her description. Only the varying stool color is that could range from dark to maroon and perhaps bright red blood at times. She denies any dysuria or hematuria. She does have stasis ulcerations on her extremity, left worse than right. Left tibial area has a dressing intact. Physical Exam: AAO x3 Sclera anicteric, oral mucosa is moist. Lungs CTA without rales , rhonci or wheezes Heart is normal S1s2 Abdomen is soft NT/ND + Bowel sends. No rebound or guarding. No clubbing cyanosis. +1 edema pretibially A rectal exam is deferred. LABORATORY STUDIES ON ADMISSION: White count 6.6, hemoglobin 9.2, MCV 87, platelets 208,000. INR is 1.0, PTT is 73. BUN and creatinine are elevated at 113 and 5.2, potassium 5.0, bicarbonate is 18. LFTs - alkaline phosphatase 60, ALT 14, AST 19, total bilirubin 0.3, albumin is 2.7. IMAGING STUDIES: Last evening, found colonic diverticulosis but no evidence of obvious inflammation in the colon, although this was an oral contrast study. There was no evidence for bowel wall thickening. Health staff had contacted Dr. Pastrana last evening and a bowel prep was recommended for which the patient continued only a portion of this, in anticipation of undergoing upper endoscopy and colonoscopy today. IMPRESSION: The patient with symptoms of gastrointestinal bleeding that was painless in nature, suspected of being lower based on the bright red blood and dark-appearing stools that are varied over the past couple of days. However, there is a significantly elevated BUN all being in the setting of an elevated creatinine. Her hemoglobin did drift down with hospitalization and presumed IV hydration. Sources likely included the lower GI bleeding source, such as diverticular disease or perhaps hemorrhoids as these are painless in nature. Less likely is ischemic colitis or infectious or inflammatory colitis. PLAN: At the present time, the patient is refusing either upper endoscopy or colonoscopy, mostly because she is worried about tolerating the bowel prep. I did tell her that the only way that we can be clear as to the source of the bleeding and to ensure that this is not something that is worsened or has a risk of ongoing bleeding that may affect her health status, both in a short and fdc, would perform an upper endoscopy and colonoscopy. However, she continues to receive undergoing these exams. She appears to understand the concerns I raised above including that missed opportunity at findings of cancer, particularly with her description of weight loss, may not be properly or timely identified. At the present time, I would continue with PPI therapy in the outside, chance that this is an upper GI bleeding source, obtain H. pylori to exclude this as a potential source of an ulcer, presumed ulcer and to follow hemoglobin serially. If bleeding were to return, consider the issue of upper and lower endoscopic exam should be made and address with the patient. Will sign off at this time. If you have any questions regarding this assessment or if there is any change in the patient's position to further investigate her GI bleeding sources, please do not hesitate to call. Thank you for allowing me to participate in this pleasant lady's care. ADAM
[2016-06-18 23:55] VITALS: BP 113/67; PULSE 81; TEMP 36.8; O2SAT 97
[2016-06-19] MEDS: SODIUM CHLORIDE 0.45% 1000ML 1,000 ML IV SCH ×2 (01:30→09:46)
[2016-06-19] MEDS: LEVOTHYROXINE 150 MCG TAB PO SCH (06:06)
[2016-06-19] MEDS: ACETAMINOPHEN 325 MG TAB PO PRN ×2 (06:07→20:37)
[2016-06-19 07:44] LABS: HEMATOCRIT 24.6 % (37-47); MEAN CELL VOLUME 86.9 fL (80-100); MEAN CORPUSCULAR HEMOGLOBIN 29.3 pg (25-34); MEAN CORPUSCULAR HGB CONC 33.7 g/dl (32-36); MEAN PLATELET VOLUME 9.7 fL (7.4-10.4); PLATELET COUNT 210 K/uL (130-400); RED BLOOD COUNT 2.83 M/uL (4.2-5.4); WHITE BLOOD COUNT 6.31 K/uL (4.8-10.8)
[2016-06-19] MEDS: ARGININE EXTRA NUTRITION DRINK 1 BOX PO SCH ×2 (07:51→20:31)
[2016-06-19] MEDS: FLUTICASONE PROPIONATE NA SPR 16 GM BTL SCH ×2 (07:51→20:31)
[2016-06-19] MEDS: PANTOprazole INJ 40 MG in SYRINGE 0 ML IV SCH ×2 (07:51→20:31)
[2016-06-19] MEDS: SIMVASTATIN 40 MG TAB PO SCH (07:51)
[2016-06-19 08:06] VITALS: BP 111/61; PULSE 84; TEMP 36.4; O2SAT 95
[2016-06-19 08:21] LABS: CALCIUM 7.5 mg/dl (8.5-10.1); CREATININE 1.9 mg/dl (0.60-1.20); POTASSIUM 3.4 mmol/L (3.5-5.1)
[2016-06-19 13:42] LABS: URINE APPEARANCE CLEAR (CLEAR); URINE BILIRUBIN NEG (NEG); URINE COLOR YELLOW; URINE EPITHELIAL CELL AUTO >30 /lpf (0-5); URINE NITRITE NEG (NEG); URINE SPECIFIC GRAVITY 1.011 (1.000-1.030); UROBILINOGEN NEG (NEG)
[2016-06-19 13:48] LABS: MANUAL MICROSCOPIC REQUIRED? NO; REVIEW REQ? NO
[2016-06-19 15:09] VITALS: BP 106/60; PULSE 80; TEMP 36.8; O2SAT 97
--- NOTE | 2016-06-19 18:31 | Family Medicine Progress Note ---
Progress Note Date of Service Jun 19, 2016. Subjective Pt evaluation today including: conversation w/ patient, physical exam, chart review, lab review Pain: back pain per baseline Voiding: no voiding problems, no incontinence, dinh catheter in place Patient continues to complain of having low back discomfort Notes she did not sleep at night Upset that she can only eat liquid diet Denies bleed NE overnight; appetite is good Notes that she has a mild cough and when she coughs she has urinary incontinence. Additional Comments: Review of systems otherwise negative. Medications Current Inpatient Medications Medications (Trade) Dose Ordered Sig/Jose Route Start Time Stop Time Status Last Admin Dose Admin Acetaminophen (Tylenol Tab) 650 mg Q4H PRN PO 06/17/16 14:45 07/17/16 14:44 06/19/16 06:07 650 MG Al Hydrox/Mg Hydrox/Simethicone (Maalox Max Susp) 15 ml Q4H PRN PO 06/17/16 14:45 07/17/16 14:44 Magnesium Hydroxide (Milk Of Magnesia Susp) 30 ml Q6H PRN PO 06/17/16 14:45 07/17/16 14:44 Polyethylene (Miralax Powder Packet) 17 gm DAILY PRN PO 06/17/16 14:45 07/17/16 14:44 Ondansetron HCl (Zofran Inj) 4 mg Q6H PRN IV 06/17/16 14:45 07/17/16 14:44 Cyclobenzaprine HCl (Flexeril Tab) 5 mg TID PO 06/17/16 20:00 07/17/16 20:59 Future Hold Diphenhydramine HCl (Benadryl Inj) 12.5 mg TID PRN IV 06/17/16 15:15 07/17/16 15:14 Sodium Chloride ([place] Nasal [place]) 2 sprays Q3H PRN NA 06/17/16 18:00 07/17/16 17:59 Fluticasone Propionate (Flonase Nasal [place]) 1 sprays BID NA 06/17/16 20:00 07/17/16 19:59 06/19/16 07:51 1 SPRAYS Levothyroxine Sodium (Synthroid Tab) 150 mcg DAILYBB PO 06/18/16 06:30 07/18/16 06:29 06/19/16 06:06 150 MCG Simvastatin 40 mg 40 mg DAILY PO 06/18/16 08:00 07/18/16 07:59 06/19/16 07:51 40 MG Pantoprazole Sodium/Syringe (Protonix Inj/ Syringe) 10 ml @ 5 mls/min BID@0900,2100 IV 06/17/16 21:00 07/17/16 20:59 06/19/16 07:51 5 MLS/MIN Enteral Nutritional Formula (Arginaid Extra) 1 box BID PO 06/18/16 20:00 07/18/16 19:59 06/19/16 07:51 1 BOX Objective Vital Signs Date Time Temp Pulse Resp B/P Pulse Ox O2 Delivery O2 Flow Rate FiO2 06/19/16 16:00 Room Air 06/19/16 15:09 36.8 80 16 106/60 97 Room Air 06/19/16 08:06 36.4 84 16 111/61 95 Room Air 06/19/16 08:00 Room Air 06/19/16 00:00 Room Air 06/18/16 23:55 36.8 81 22 113/67 97 Room Air Physical Exam General Appearance: WD/WN, + mild distress Eyes: normal inspection, EOMI ENT: normal ENT inspection, hearing grossly normal, pharynx normal Neck: supple, no adenopathy, no JVD Respiratory/Chest: lungs clear, no respiratory distress Cardiovascular: regular rate, rhythm, no gallop, no murmur Abdomen: normal bowel sounds, non tender, soft Extremities: + pertinent finding (bilateraly tenerness; left leg erythmatous with marked erythema and skin exfoliation ; right leg appears normal, soft calves but mildly tender to palpatino per baseline) Skin: normal color, warm/dry, no rash Lymphatic: no adenopathy Laboratory Results Last 24 Hours Test 06/19/16 07:35 06/19/16 12:20 White Blood Count 6.31 K/uL Red Blood Count 2.83 M/uL Hemoglobin 8.3 g/dL Hematocrit 24.6 % Mean Corpuscular Volume 86.9 fL Mean Corpuscular Hemoglobin 29.3 pg Mean Corpuscular Hemoglobin Concent 33.7 g/dl RDW Standard Deviation 55.5 fL RDW Coefficient of Variation 17.6 % Platelet Count 210 K/uL Mean Platelet Volume 9.7 fL Sodium Level 148 mmol/L Potassium Level 3.4 mmol/L Chloride Level 118 mmol/L Carbon Dioxide Level 18 mmol/L Anion Gap 12.0 mmol/L Blood Urea Nitrogen 59 mg/dl Creatinine 1.90 mg/dl Est Creatinine Clear Calc Drug Dose 24.1 ml/min Estimated GFR () 28.4 Estimated GFR (Non- 24.5 BUN/Creatinine Ratio 31.0 Random Glucose 90 mg/dl Lactic Acid Level 0.8 mmol/L Calcium Level 7.5 mg/dl Urine Color YELLOW Urine Appearance CLEAR Urine pH 5.0 Urine Specific [place] 1.011 Urine Protein NEG Urine Glucose (UA) NEG Urine Ketones NEG Urine Occult Blood NEG Urine Nitrite NEG Urine Bilirubin NEG Urine Urobilinogen NEG Urine Leukocyte Esterase TRACE Urine WBC (Auto) 1-5 /hpf Urine RBC (Auto) 0-4 /hpf Urine Hyaline Casts (Auto) 1-5 /lpf Urine Epithelial Cells (Auto) >30 /lpf Urine Bacteria (Auto) NEG Assessment and Plan Pleasant 80 year old female with a history of CKD III, peripheral arterial disease and venous insufficiency with chronic L leg wounds, and AAA measuring 5.0 cm. Patient had refused to have coloscopy and EGD yesterday. Aware of the consequences of her decision and willing to accept the risk of not being able to establish a firm diagnosis. At this time, she is being treated conservatively. Rectal bleeding - Differential diagnosis for the bleeding includes ischemic bowel, C.difficile , hemorrhoids, colon cancer, diverticular bleeding. - Concern for ischemic bowel given history of extensive PAD. Lactate came down to 0.8 yesterday - Rectal examination yesterday did note external hemorrhoids - CT reviewed; not ideal study as there is no contrast; C. difficile toxin assay negative; Hemoccult positive; - Colonoscopy/EGD cancelled due to patient refusal; patient not having active intervention at this time Space H&H to daily Transfusion thresshold at < 7 Acute Blood Loss Anemia, secondary to rectal bleeding - Hemoglobin of 9 on arrival. 8.3 Today Baseline 12-13 - H&H q6h as well as CBC daily. - Pt is typed and crossed. 2 units on hold. Transfuse if Hb < 7.0. LOLA on background of CKD III - Cr continues to improve today at 1.9, baseline 1.1 - Continue 125 ml/hr; fluids changed due to hypernatremia - Space BMPs to daily - Continue to avoid nephrotoxins; if patient Cr improves to baseline, may consider repeating CT with IV contrast Chronic leg wounds secondary to venous insufficiency and peripheral arterial disease/lymphedema. - Wound care consult appreciated Drug rash likely related to antibiotics - Discontinue antibiotics Chronic back pain - Likely in part due to immobility and deconditioning - Frequent repositioning; Heat packs; Tylenol PRN. - Patient needs continued PT/OT sessions Infrarenal AAA - This has been stable per pt, currently measuring 5.0 cm. - No action at this time Depression - History of reduced desire to move, low mood and weight loss - Superimposing depression a poor prognostic factor for recovery, will limit patients desire to engage with PT/OT Failure to thrive/Weight loss - Pre-albumin WNL - Consult nutrition - Re-conditioning with PT/OT - Consider malignancy from GI source; cannot adequate evaluate at this time due to patient refusal DVT prophylaxis - No DVT prophylaxis due to concern for continued bleeding - SCD if patient can tolerate with chronic wound Code Status - Level I Code Disposition - Med/Surg Continued [facility] stay due to: ambulation difficulties Discharge planning: uncertain Reviewed: Pt Seen/Exam by Me Constitutional: denies: fever Respiratory: negative: short of breath Cardiovascular: denies chest pain Gastrointestinal/Abdominal: positive: other (no further rectal bleeding), negative: abdominal pain, diarrhea General Appearance: no apparent distress Respiratory: lungs clear, no respiratory distress Cardiovascular: regular rate, rhythm Gastrointestinal: normal bowel sounds, non tender, soft Neurologic/Psychiatric: alert, oriented x 3 Skin Characteristics: warm/dry Assessment/Plan I have reviewed the medical record and performed a history and physical examination of this patient today. I have discussed the case with Dr. Rubio. The above note reflects my findings, conclusions, and recommendations. Refused colonoscopy No active bleeding. h/h stable. Renal function improved. PT/OT - anticipate d/c home with home health.
[2016-06-19] MEDS ORDERED: MICONAZOLE NITRATE POWDER 43 GM ONE (20:18)
[2016-06-19 23:33] VITALS: BP 114/59; PULSE 83; TEMP 36.9; O2SAT 96
[2016-06-20 06:26] LABS: HEMATOCRIT 25.7 % (37-47); MEAN CELL VOLUME 87.7 fL (80-100); MEAN CORPUSCULAR HEMOGLOBIN 28.3 pg (25-34); MEAN CORPUSCULAR HGB CONC 32.3 g/dl (32-36); MEAN PLATELET VOLUME 10.3 fL (7.4-10.4); PLATELET COUNT 220 K/uL (130-400); RED BLOOD COUNT 2.93 M/uL (4.2-5.4); WHITE BLOOD COUNT 6.64 K/uL (4.8-10.8)
[2016-06-20] MEDS: LEVOTHYROXINE 150 MCG TAB PO SCH (06:34)
[2016-06-20 06:55] LABS: BUN/CREATININE RATIO 28.5 (10-20); CALCIUM 7.6 mg/dl (8.5-10.1); CREATININE 1.4 mg/dl (0.60-1.20); POTASSIUM 3.4 mmol/L (3.5-5.1)
[2016-06-20 07:45] VITALS: BP 125/67; PULSE 79; TEMP 36.5; O2SAT 93
[2016-06-20] MEDS: SIMVASTATIN 40 MG TAB PO SCH (08:30)
[2016-06-20] MEDS: FLUTICASONE PROPIONATE NA SPR 16 GM BTL SCH ×2 (08:30→20:35)
[2016-06-20] MEDS: PANTOprazole INJ 40 MG in SYRINGE 0 ML IV SCH ×2 (08:30→20:34)
[2016-06-20] MEDS: ARGININE EXTRA NUTRITION DRINK 1 BOX PO SCH ×2 (08:30→20:34)
[2016-06-20 16:04] VITALS: BP 97/57; PULSE 77; TEMP 36.5; O2SAT 92
--- NOTE | 2016-06-20 16:29 | Hospitalist Progress Note ---
Hospitalist Progress Note Date of Service Jun 20, 2016. Subjective no rectal bleeding. Constitutional: No fever Respiratory: No shortness of breath Cardiovascular: No chest pain Objective Vital Signs Date Time Temp Pulse Resp B/P Pulse Ox O2 Delivery O2 Flow Rate FiO2 06/20/16 16:04 36.5 77 18 97/57 92 Room Air 06/20/16 08:00 Room Air 06/20/16 07:45 36.5 79 17 125/67 93 Room Air 06/20/16 00:05 Room Air 06/19/16 23:33 36.9 83 18 114/59 96 Room Air 06/19/16 20:00 Room Air Physical Exam General Appearance: no apparent distress Respiratory/Chest: lungs clear, no respiratory distress Cardiovascular: regular rate, rhythm Extremities: + pertinent finding (both feet indressing. waffle boots +) Neurologic/Psychiatric: alert, oriented x 3 Laboratory Results Last 24 Hours Test 06/20/16 05:45 White Blood Count 6.64 K/uL Red Blood Count 2.93 M/uL Hemoglobin 8.3 g/dL Hematocrit 25.7 % Mean Corpuscular Volume 87.7 fL Mean Corpuscular Hemoglobin 28.3 pg Mean Corpuscular Hemoglobin Concent 32.3 g/dl RDW Standard Deviation 56.4 fL RDW Coefficient of Variation 17.7 % Platelet Count 220 K/uL Mean Platelet Volume 10.3 fL Sodium Level 152 mmol/L Potassium Level 3.4 mmol/L Chloride Level 120 mmol/L Carbon Dioxide Level 22 mmol/L Anion Gap 10.0 mmol/L Blood Urea Nitrogen 40 mg/dl Creatinine 1.40 mg/dl Est Creatinine Clear Calc Drug Dose 32.8 ml/min Estimated GFR () 41.0 Estimated GFR (Non- 35.4 BUN/Creatinine Ratio 28.5 Random Glucose 85 mg/dl Calcium Level 7.6 mg/dl Assessment and Plan Pleasant 80 year old female with a history of CKD III, peripheral arterial disease and venous insufficiency with chronic L leg wounds, and AAA measuring 5.0 cm. Patient had refused to have coloscopy and EGD yesterday. Aware of the consequences of her decision and willing to accept the risk of not being able to establish a firm diagnosis. At this time, she is being treated conservatively. Rectal bleeding - Differential diagnosis for the bleeding includes ischemic bowel, C.difficile , hemorrhoids, colon cancer, diverticular bleeding. - Concern for ischemic bowel given history of extensive PAD. - Rectal examination with external hemorrhoids - CT reviewed; not ideal study as there is no contrast; C. difficile toxin assay negative; Hemoccult positive; - Colonoscopy/EGD cancelled due to patient refusal; patient not having active intervention at this time H&H stable Acute Blood Loss Anemia, secondary to rectal bleeding - Hemoglobin of 9 on arrival. Now stable at 8.3 Baseline 12-13 LOLA on background of CKD III - Cr continues to improve - today 1.4, baseline 1.1 - Continue to avoid nephrotoxins; Hypernatremia - replace free water. d/yanira NSS Chronic leg wounds secondary to venous insufficiency and peripheral arterial disease/lymphedema. - Wound care consult appreciated Drug rash likely related to antibiotics - Discontinue antibiotics Chronic back pain - Likely in part due to immobility and deconditioning - Frequent repositioning; Heat packs; Tylenol PRN. - Patient needs continued PT/OT sessions Infrarenal AAA - This has been stable per pt, currently measuring 5.0 cm. - No action at this time Depression - History of reduced desire to move, low mood and weight loss - Superimposing depression a poor prognostic factor for recovery, will limit patients desire to engage with PT/OT Failure to thrive/Weight loss - Pre-albumin WNL - Consult nutrition - Re-conditioning with PT/OT - Consider malignancy from GI source; cannot adequate evaluate at this time due to patient refusal DVT prophylaxis - No DVT prophylaxis due to concern for continued bleeding - SCD if patient can tolerate with chronic wound Code Status - Level I Code Disposition - Med/Surg Continued [facility] stay due to: ambulation difficulties PT/OT - anticipate d/c home with home health.
[2016-06-20 23:31] VITALS: BP 124/68; PULSE 71; TEMP 36.7; O2SAT 97
[2016-06-21] MEDS: LEVOTHYROXINE 150 MCG TAB PO SCH (06:21)
[2016-06-21 07:42] VITALS: BP 128/73; PULSE 78; TEMP 36.8; O2SAT 94
[2016-06-21] MEDS: SIMVASTATIN 40 MG TAB PO SCH (08:43)
[2016-06-21] MEDS: ARGININE EXTRA NUTRITION DRINK 1 BOX PO SCH ×2 (08:43→21:17)
[2016-06-21] MEDS: FLUTICASONE PROPIONATE NA SPR 16 GM BTL SCH ×2 (08:43→21:20)
[2016-06-21] MEDS: PANTOprazole INJ 40 MG in SYRINGE 0 ML IV SCH ×2 (08:44→21:16)
--- NOTE | 2016-06-21 13:14 | Hospitalist Progress Note ---
Hospitalist Progress Note Date of Service Jun 21, 2016. Subjective no new concerns. hasn't moved around much in the room. Constitutional: No fever Respiratory: No shortness of breath Cardiovascular: No chest pain Objective Vital Signs Date Time Temp Pulse Resp B/P Pulse Ox O2 Delivery O2 Flow Rate FiO2 06/21/16 08:00 Room Air 06/21/16 07:42 36.8 78 20 128/73 94 Room Air 06/21/16 00:15 Room Air 06/20/16 23:31 36.7 71 20 124/68 97 Room Air 06/20/16 20:05 Room Air 06/20/16 16:04 36.5 77 18 97/57 92 Room Air 06/20/16 16:00 Room Air Physical Exam General Appearance: no apparent distress Respiratory/Chest: lungs clear, no respiratory distress Cardiovascular: regular rate, rhythm Abdomen: normal bowel sounds, non tender, soft Neurologic/Psychiatric: alert, oriented x 3 Skin: warm/dry Assessment and Plan Pleasant 80 year old female with a history of CKD III, peripheral arterial disease and venous insufficiency with chronic L leg wounds, and AAA measuring 5.0 cm. Patient had refused to have coloscopy and EGD yesterday. Aware of the consequences of her decision and willing to accept the risk of not being able to establish a firm diagnosis. Rectal bleeding - Differential diagnosis for the bleeding includes ischemic bowel, C.difficile , hemorrhoids, colon cancer, diverticular bleeding. - Concern for ischemic bowel given history of extensive PAD. - Rectal examination with external hemorrhoids - CT reviewed; not ideal study as there is no contrast; C. difficile toxin assay negative; Hemoccult positive; - Colonoscopy/EGD cancelled due to patient refusal; patient not having active intervention at this time H&H stable Acute Blood Loss Anemia, secondary to rectal bleeding - Hemoglobin of 9 on arrival. Now stable at 8.3 Baseline 12-13 LOLA on background of CKD III - Cr continues to improve - today 1.4, baseline 1.1 - Continue to avoid nephrotoxins; Hypernatremia - replace free water. d/yanira NSS - recheck bmp in am Chronic leg wounds secondary to venous insufficiency and peripheral arterial disease/lymphedema. - Wound care consult appreciated Drug rash likely related to antibiotics - Discontinued antibiotics Chronic back pain - Likely in part due to immobility and deconditioning - Frequent repositioning; Heat packs; Tylenol PRN. - Patient needs continued PT/OT sessions Infrarenal AAA - This has been stable per pt, currently measuring 5.0 cm. - No action at this time Depression - History of reduced desire to move, low mood and weight loss - Follow for need of pharmacological rx. Failure to thrive/Weight loss - Pre-albumin WNL - Consult nutrition - Re-conditioning with PT/OT - Consider malignancy from GI source; cannot adequate evaluate at this time due to patient refusal DVT prophylaxis - No DVT prophylaxis due to concern for continued bleeding - SCD if patient can tolerate with chronic wound Code Status - Level I Code Disposition - Med/Surg Continued [facility] stay due to: ambulation difficulties PT/OT - anticipate d/c home with home health since patient wishes to not go to rehab. Discussed with PT - will work with her today. Declined PT last time due to pain in feet
[2016-06-21 16:39] VITALS: BP 124/69; PULSE 78; TEMP 36.7; O2SAT 97
[2016-06-21 23:12] VITALS: BP 123/70; PULSE 79; TEMP 37.1; O2SAT 95
[2016-06-22] VITALS: O2SAT 95
[2016-06-22] MEDS: LEVOTHYROXINE 150 MCG TAB PO SCH (06:04)
[2016-06-22 06:47] LABS: CALCIUM 7.6 mg/dl (8.5-10.1); CREATININE 1.1 mg/dl (0.60-1.20); POTASSIUM 3.5 mmol/L (3.5-5.1)
[2016-06-22 07:29] VITALS: BP 126/73; PULSE 75; TEMP 36.3; O2SAT 97
[2016-06-22] MEDS: ARGININE EXTRA NUTRITION DRINK 1 BOX PO SCH ×2 (08:56→20:05)
[2016-06-22] MEDS: FLUTICASONE PROPIONATE NA SPR 16 GM BTL SCH ×2 (08:57→20:05)
[2016-06-22] MEDS: PANTOprazole INJ 40 MG in SYRINGE 0 ML IV SCH ×2 (08:57→20:05)
[2016-06-22] MEDS: SIMVASTATIN 40 MG TAB PO SCH (08:57)
[2016-06-22] MEDS ORDERED: HYDROXYZINE HCL 10 MG/5 ML PO ONE (15:30)
[2016-06-22] MEDS ORDERED: hydrOXYzine HCL 10 MG TAB PO ONE (15:30)
[2016-06-22 15:33] VITALS: BP 115/62; PULSE 92; TEMP 36.7; O2SAT 98
--- NOTE | 2016-06-22 20:28 | Family Medicine Progress Note ---
Progress Note Date of Service Jun 22, 2016. Subjective Pt evaluation today including: conversation w/ patient, physical exam, chart review, lab review Pain: denies pain PO Intake: improved 80 y/o F with PMH of HTN, CKD III, peripheral arterial disease and venous insufficiency with chronic L leg wounds, and AAA measuring 5.0 cm on 03/05/16 who presented to the hospital after two days of rectal bleeding. declined colonoscopy or EGD Constitutional: No chills, No fever Eyes: No worsening of vision ENT: No hearing loss Respiratory: No cough, No shortness of breath Cardiovascular: No chest pain Abdomen: No GI bleeding, No nausea, No pain Musculoskeletal: No joint pain Female : No dysuria Neurologic: No memory loss Psychiatric: No depression symptoms Medications Current Inpatient Medications Medications (Trade) Dose Ordered Sig/Jose Route Start Time Stop Time Status Last Admin Dose Admin Acetaminophen (Tylenol Tab) 650 mg Q4H PRN PO 06/17/16 14:45 07/17/16 14:44 06/19/16 20:37 650 MG Al Hydrox/Mg Hydrox/Simethicone (Maalox Max Susp) 15 ml Q4H PRN PO 06/17/16 14:45 07/17/16 14:44 Magnesium Hydroxide (Milk Of Magnesia Susp) 30 ml Q6H PRN PO 06/17/16 14:45 07/17/16 14:44 Polyethylene (Miralax Powder Packet) 17 gm DAILY PRN PO 06/17/16 14:45 07/17/16 14:44 Ondansetron HCl (Zofran Inj) 4 mg Q6H PRN IV 06/17/16 14:45 07/17/16 14:44 Cyclobenzaprine HCl (Flexeril Tab) 5 mg TID PO 06/17/16 20:00 07/17/16 20:59 Future Hold Diphenhydramine HCl (Benadryl Inj) 12.5 mg TID PRN IV 06/17/16 15:15 07/17/16 15:14 Sodium Chloride ([place] Nasal [place]) 2 sprays Q3H PRN NA 06/17/16 18:00 07/17/16 17:59 Fluticasone Propionate (Flonase Nasal [place]) 1 sprays BID NA 06/17/16 20:00 07/17/16 19:59 06/22/16 20:05 1 SPRAYS Levothyroxine Sodium (Synthroid Tab) 150 mcg DAILYBB PO 06/18/16 06:30 07/18/16 06:29 06/22/16 06:04 150 MCG Simvastatin 40 mg 40 mg DAILY PO 06/18/16 08:00 07/18/16 07:59 06/22/16 08:57 40 MG Pantoprazole Sodium/Syringe (Protonix Inj/ Syringe) 10 ml @ 5 mls/min BID@0900,2100 IV 06/17/16 21:00 07/17/16 20:59 06/22/16 20:05 5 MLS/MIN Enteral Nutritional Formula (Arginaid Extra) 1 box BID PO 06/18/16 20:00 07/18/16 19:59 06/22/16 20:05 1 BOX Objective Physical Exam General Appearance: WD/WN, no apparent distress Eyes: normal inspection ENT: hearing grossly normal Neck: supple Respiratory/Chest: chest non-tender, + wheezing Cardiovascular: regular rate, rhythm, + systolic murmur Abdomen: normal bowel sounds, non tender, soft Extremities: normal range of motion, + pedal edema, + pertinent finding ( chronicc venopus stasis ulcer ) Neurologic/Psychiatric: alert, normal mood/affect, oriented x 3 Skin: + rash (b/l thighs, arms, hands) Laboratory Results Last 24 Hours Test 06/22/16 05:15 Hemoglobin 8.4 g/dL Hematocrit 26.0 % Sodium Level 149 mmol/L Potassium Level 3.5 mmol/L Chloride Level 116 mmol/L Carbon Dioxide Level 22 mmol/L Anion Gap 11.0 mmol/L Blood Urea Nitrogen 20 mg/dl Creatinine 1.10 mg/dl Est Creatinine Clear Calc Drug Dose 41.7 ml/min Estimated GFR () 54.9 Estimated GFR (Non- 47.4 BUN/Creatinine Ratio 18.0 Random Glucose 92 mg/dl Calcium Level 7.6 mg/dl Assessment and Plan Pleasant 80 year old female with a history of CKD III, peripheral arterial disease and venous insufficiency with chronic L leg wounds, and AAA measuring 5.0 cm. Patient had refused to have coloscopy and EGD Rectal bleeding - Differential diagnosis for the bleeding includes ischemic bowel, C.difficile , hemorrhoids, colon cancer, diverticular bleeding. - Rectal examination with external hemorrhoids - C. difficile toxin assay negative; Hemoccult positive - Colonoscopy/EGD declined H&H stable Acute Blood Loss Anemia, secondary to rectal bleeding - Hemoglobin of 9 on arrival. Now stable at 8.4 Baseline 12-13 LOLA on background of CKD III - Cr continues to improve - today 1.1 - Continue to avoid nephrotoxins Hypernatremia: - Na at 149 - Monitor Na Chronic leg wounds secondary to venous insufficiency and peripheral arterial disease/lymphedema. - Wound care consult appreciated Drug rash likely related to antibiotics - Discontinued antibiotics Chronic back pain - Frequent repositioning; Heat packs; Tylenol PRN. - Patient needs continued PT/OT sessions Infrarenal AAA - This has been stable per pt, currently measuring 5.0 cm. Failure to thrive/Weight loss - Pre-albumin WNL - Consult nutrition - Re-conditioning with PT/OT - Consider malignancy from GI source; cannot adequate evaluate at this time due to patient refusal DVT prophylaxis - No DVT prophylaxis due to concern for continued bleeding - SCD if patient can tolerate with chronic wound Code Status - Full code Disposition - Med/Surg Reviewed: Pt Seen/Exam by MARC Lam Notes, Labs, RAD History Resident Physician Supervision Note: I was present with Dr. Hummel during the history and exam. I discussed the case with the resident and agree with the findings and plan as documented in the note. Any exceptions or clarifications are listed here: Pt remains stable, no further bleeding. SHe continues to decline any further scopes, however states that she absolutely cannot go home today due to her being discharged to home from [facility] and no one to pick her up. No CP/SOB/ no abd pain Vital sreviewed, stable CV RRR no mgr Pulm: CTAB no w/c/r Abd: +BS, soft NT ND Ext: no edema Skin: diffuse erythematous maculopapular scaly rash on abdomen, all extremities , not on back but some on buttocks A/P: 80 yo female with GI bleeding, anemia of acute blood loss, hypernatremia likely from NS infusions. Continues to decline scopes despite discussion of importance of finding source of bleeding. She will be provided with Dr. Santiago' s information upon dc in case she changes her mind and decides to follow up. She will return if has return of GI bleeding or weakness. Otherwise, follow Na+ levels and is taking free water, chris po, change diet to low residue and dc tomorrow. Documented By: Melissa Cruz
[2016-06-22 23:49] VITALS: BP 119/66; PULSE 82; TEMP 36.6; O2SAT 96
[2016-06-23] MEDS: ACETAMINOPHEN 325 MG TAB PO PRN (01:23)
[2016-06-23] MEDS: LEVOTHYROXINE 150 MCG TAB PO SCH (06:27)
[2016-06-23 08:00] VITALS: O2SAT 96
[2016-06-23] MEDS: ARGININE EXTRA NUTRITION DRINK 1 BOX PO SCH (08:00)
[2016-06-23] MEDS: FLUTICASONE PROPIONATE NA SPR 16 GM BTL SCH (08:22)
[2016-06-23] MEDS: SIMVASTATIN 40 MG TAB PO SCH (08:23)
[2016-06-23] MEDS: PANTOprazole INJ 40 MG in SYRINGE 0 ML IV SCH (08:24)
[2016-06-23 09:11] VITALS: BP 114/74; PULSE 98; TEMP 36.9; O2SAT 96
[2016-06-23 09:23] VITALS: O2SAT 96
[2016-06-23 09:50] LABS: HEMATOCRIT 31.6 % (37-47)
--- NOTE | 2016-06-23 10:21 | Discharge Instructions ---
Discharge Instructions Admission Reason for Admission: Acute Kidney Injury Discharge Discharge Diagnosis / Problem: Gastrointestinal bleeding, Chronic venous insufficiency with ulcers Discharge Goals Goal(s): Decrease discomfort, Diagnostic testing Activity Recommendations Activity Limitations: resume your previous activity . Instructions / Follow-Up Instructions / Follow-Up You were admitted with concerns of a gastro-intestinal bleeding and were seen by gastroenterology and recommended to get a colonoscopy or EGD but she had declined any interventions. - GI bleeding - External hemorrhoids: may use preparation H - Monitor for return of GI bleed - STOP using aspirin 81 mg for at least about a week until you see PCP - Use Protonix 40 mg daily Acute Blood Loss Anemia, secondary to rectal bleeding - Hemoglobin at discharge 10 - Use iron supplements with a stool softener - Please recheck your CBC in 2-3 days and follow up with your family doctor Hypertension: - STOP using Cozaar until you see your PCP Elevated Sodium: - Please get a BMP drawn before you see your PCP - (script is enclosed) Chronic leg wounds - Follow up with Wound care tomorrow - You may use Lasix for leg swelling Drug rash likely related to antibiotics -you may use Benadryl or Vistaril three times a day as needed Infrarenal AAA - Stable at 5 cm - Follow up with PCP so that it can be monitored Please follow up with PCP in 1 week after you get CBC and BMP drawn, follow up with wound care tomoow Follow up with gastroenterology in 1-2 weeks please come back up to the Er if you have further bleeding, fevers with chills. Current Hospital Diet Patient's current hospital diet: Low Sodium Diet (2gm Na) Discharge Diet Recommended Diet: Low Sodium Diet (2gm Na) Pending Studies Studies pending at discharge: no Laboratory Results Last 24 Hours Test 06/23/16 09:15 06/23/16 10:41 Hemoglobin 10.0 g/dL Hematocrit 31.6 % Sodium Level 146 mmol/L Potassium Level mmol/L Chloride Level 114 mmol/L Carbon Dioxide Level 20 mmol/L Anion Gap 12.0 mmol/L Blood Urea Nitrogen 16 mg/dl Creatinine 1.20 mg/dl Est Creatinine Clear Calc Drug Dose 38.2 ml/min Estimated GFR () 49.4 Estimated GFR (Non- 42.7 BUN/Creatinine Ratio 13.4 Random Glucose 122 mg/dl Calcium Level 8.3 mg/dl Medical Emergencies . Who to Call and When: Medical Emergencies: If at any time you feel your situation is an emergency, please call 911 immediately. . Non-Emergent Contact Non-Emergency issues call your: Primary Care Provider Call Non-Emergent contact if: you have a fever, your pain is not controlled, your pain is worsening, wound has increased drainage, wound has increased redness, wound has increased pain, you have any medication questions . . "Provider Documentation" section prepared by Isis Hummel. VTE Core Measure Inpt VTE Proph given/why not?: SCD's (As tolerated s/p chronic leg wounds)
[2016-06-23 10:41] LABS: BLOOD UREA NITROGEN 16 mg/dl (7-18); BUN/CREATININE RATIO 13.4 (10-20); CALCIUM 8.3 mg/dl (8.5-10.1); CARBON DIOXIDE 20 mmol/L (21-32); CHLORIDE 114 mmol/L (98-107); GLUCOSE 122 mg/dl (70-99); SODIUM 146 mmol/L (136-145)
[2016-06-23 11:33] VITALS: BP 114/74; PULSE 98; TEMP 36.9; O2SAT 96
[2016-06-23] MEDS ORDERED: PANT40TA PO (11:52)
--- NOTE | 2016-06-23 11:59 | Discharge Summary ---
Discharge Summary Admission Date: Jun 17, 2016 at 14:46 Discharge Date: Jun 23, 2016 Discharge Disposition: Home Principal Diagnosis: GI bleeding Problems/Secondary Diagnoses: LOLA, left Lower extremity ulcer Consultations: Gastroenterology. (Isis Hummel MD) Medication Reconciliation New Medications: Pantoprazole Sodium (Protonix) 40 Mg Tab 1 TAB PO DAILY for Bleeding for 30 Days, #30 TAB 5 Refills Continued Medications: Furosemide (Lasix) 20 Mg Tab 1 TAB PO DAILY for 90 Days, #90 TAB 1 Refill Levothyroxine Sodium (Synthroid) 150 Mcg Tab 150 MCG PO DAILY Ondansetron Hcl (Zofran) 4 Mg Tab 4 MG PO PRN for Nausea, TAB Pentoxifylline (Trental) 400 Mg Tabcr 400 MG PO TID Simvastatin (Zocor) 40 Mg Tab 40 MG PO DAILY Discontinued Medications: Aspirin (Aspirin Ec) 81 Mg Tab 81 MG PO DAILY Levofloxacin (Levaquin) 500 Mg Tab 500 MG PO DAILY for 14 Days, #14 TAB 1 Refill Losartan Potassium (Cozaar) 50 Mg Tab 50 MG PO DAILY [areds] () 1 TAB PO BID Discharge Exam No active GI bleeding. Denies chest pain/SOB/palpitations. Review of Systems: Constitutional: No chills, No fever Eyes: No worsening of vision ENT: No hearing loss Respiratory: No cough, No dyspnea on exertion, No shortness of breath, No sputum Cardiovascular: No chest pain Abdomen: No nausea, No pain, No vomiting Musculoskeletal: No joint pain Genitourinary - Female: No dysuria, No urinary frequency, No urinary urgency Neurologic: No memory loss Psychiatric: No depression symptoms Endocrine: No fatigue Physical Exam: General Appearance: WD/WN, no apparent distress Eyes: normal inspection ENT: hearing grossly normal Neck: supple Respiratory/Chest: chest non-tender, lungs clear, normal breath sounds, no respiratory distress Cardiovascular: regular rate, rhythm Abdomen / GI: normal bowel sounds, non tender, soft Extremities: normal inspection, no calf tenderness, + pedal edema, + pertinent finding (LLE wound with discharge) Neurologic/Psychiatric: alert, normal mood/affect, oriented x 3 Skin: + rash (diffuse erythematous rash b/l thighs, arms) (Isis Hummel MD) Hospital Course Pt is an 80 year old female with a history of HTN, CKD III, peripheral arterial disease and venous insufficiency with chronic L leg wounds, and AAA measuring 5.0 cm on 03/05/16 who presented to the hospital for two days of rectal bleeding. Her son describes the bleeding as bright red with dark brown stool, and estimates about one cup in total, which has been gradually worsening over the last two days. He reports no melena. She has had worsening diarrhea and fatigue over the last few days as well. She has been on multiple antibiotics recently for non-healing L leg ulcers secondary to her vascular disease and a fall in November 2015. She is currently on day 12 of 14 of Levaquin, which she was started after a wound culture from a debridement was positive for Staph. She also reports nausea and vomiting secondary to the antibiotics. She reports occasional bilateral lower abdominal pain, but no increased pain acutely. She reports a history of hemorrhoids since having her children decades ago, but has never had bleeding like this before. Her last colonoscopy was in her early 70s, at which time an adenomatous polyp was noted. Her son reports that she has generally been declining in health since her fall in November 2015. She broke her arm at that time and has had problems with the non- healing leg wounds requiring wound care. In addition, she has had a diffuse itchy rash mostly on her arms and legs secondary to the antibiotics. She estimates the rash has been present approximately 2 months. The rash has not extended to her face. She has been treating this with Benadryl and cortisone. Regarding her AAA, she reports that this has been stable and that her surgeon recommended against any surgery. She had two surgeries in April 2016 addressing her peripheral vascular disease. For HTN, she is on Losartan and Lasix. Son also notes that she has been extremely inactive for the past 2 weeks and though she can ambulate independently, does so much less. She has been largely immobile over the last couple of weeks and has been mostly lying in bed. She reports decreased appetite, and over the last 6 months there is an estimated 25 pound weight loss. There are major stressors at home particularly the state of health of her who was recently admitted for CHF and is currently at [facility] for rehabilitation. She has had back pain over this time period as well, which she describes as spasms in her bilateral lower back, for which she normally takes Tylenol. She lives at home with her . The son is currently living in the house with them to provide daily care. She was generally independent prior to her fall, but has needed help from her son with ADLs since then. Rectal bleeding - Differential diagnosis for the bleeding includes ischemic bowel, C.difficile , hemorrhoids, colon cancer, diverticular bleeding. - Rectal examination with external hemorrhoids- - Use Preparation H - C. difficile toxin assay negative; Hemoccult positive - H&H stable - Gastroenterology consult: Patient had refused to have coloscopy and EGD , recommended to continue Protonix 40 mg daily to cover for any possible upper GI bleeding. - H.pylori testing as an OP - Will need to follow up with GI if bleeding returns - Colace to help with constipation Acute Blood Loss Anemia, secondary to rectal bleeding - Hemoglobin of 9 on arrival. Now stable at 10 Baseline 12-13 - Oral Fe supplements with vitamin C - Held aspirin - recheck CBC in 2-3 days LOLA on background of CKD III - Cr continues to improve - today 1.1 - Continue to avoid nephrotoxins - Cozaar held and her BP seems to be fairly controlled inspite of holding Cozaar - Lasix may be used for lower extremity swelling as needed since Cr has come back to baseline Hypernatremia: - Na at 149, likley sec to IVF infusion - received free water. - recheck CMP in 2-3 days Chronic leg wounds secondary to venous insufficiency and peripheral arterial disease/lymphedema. 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 Levaquin was d/c during admission in concerns of a rash. -Wanted to restart Levaquin since has had rash since about 2 months , but she is adamant that she wouldn't want to start it. has been sensitive to several other abx. - Refuses any kind of dressing change here, insisting she prefers her wound care centre and would like to follow up with them. Reinforced about worsening infection and recommended to follow up with wound care tomorrow Drug rash likely related to antibiotics - Discontinued antibiotics - Benadryl/Vistaril for itching Chronic back pain - Frequent repositioning; Heat packs; Tylenol PRN. - Patient needs continued PT/OT sessions Infrarenal AAA - This has been stable per pt, currently measuring 5.0 cm. Failure to thrive/Weight loss - Pre-albumin WNL - Consult nutrition - Re-conditioning with PT/OT - Consider malignancy from GI source; cannot adequate evaluate at this time due to patient refusal Abd CTA 02/20: - 50% stenosis involving the right renal artery origin - Might need to hold Cozaar Total Time Spent: Greater than 30 minutes This includes examination of the patient, discharge planning, medication reconciliation, and communication with other providers. (Isis Hummel MD) Discharge Instructions Please refer to the electronic Patient Visit Report (Discharge Instructions) for additional information. (Isis Hummel MD) Reviewed: Pt Seen/Exam by Me, HO Notes, Labs (Melissa Cruz MD) History Resident Physician Supervision Note: I was present with Dr. Hummel during the history and exam. I discussed the case with the resident and agree with the findings and plan as documented in the note. Any exceptions or clarifications are listed here: On day of discharge pt was extremely upset, emotional, demanding to be discharged. She was yelling at myself and all involved in her care. 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 Afebrile, no worsening pain. No more GI bleeding , hgb stable. Vitals reviewed Yelling, crying, emotionally distressed RRR no mgr ctab no wcr abd soft obese +BS NT ND Ext: left leg with mild erythema surrounding several open and weeping serous fluid ulcerations on left leg. 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 Renal function much improved, hgb stable. Wound however looked infected but pt insisted on discharge to home and had made arrangements to be seen on Wound Care clinic with Wound MD the following day. No further po abx were given as she had completed almost a 2 week course of Levaquin (only po option for treating her previous Pseudomonas), and she had significant renal failure and GI bleeding due to previous abx. Advised elevation of limb and continued dressing changes, debridement as per Wound MD, and close f/u. Documented By: Melissa Cruz (Melissa Cruz MD)
== END 2016-06-23 12:20 | disposition home or self-care (01) | DRG 378 ==
LOC: ENRESERVDT → ENRESERVTM → EDBD 09:57 → C.EDB 09:57 → C.4E 14:46
PROVIDERS: ADMIT Student in an Organized Health Care Education/Training Program; ATTEND Family Medicine
DX: K62.5 Hemorrhage of anus and rectum (principal); N17.9 Acute kidney failure, unspecified; I13.0 Hypertensive heart and chronic kidney disease with heart failure and stage 1 through stage 4 chronic kidney disease, or unspecified chronic kidney disease; E87.0 Hyperosmolality and hypernatremia; D62 Acute posthemorrhagic anemia; N18.3 Chronic kidney disease, stage 3 (moderate); I71.4 Abdominal aortic aneurysm, without rupture; I89.0 Lymphedema, not elsewhere classified; M54.9 Dorsalgia, unspecified; G89.29 Other chronic pain; I73.9 Peripheral vascular disease, unspecified; K64.4 Residual hemorrhoidal skin tags; F32.9 Major depressive disorder, single episode, unspecified; I50.9 Heart failure, unspecified; L27.0 Generalized skin eruption due to drugs and medicaments taken internally; R19.5 Other fecal abnormalities; R19.7 Diarrhea, unspecified; T36.95XA Adverse effect of unspecified systemic antibiotic, initial encounter; Y92.239 Unspecified place in hospital as the place of occurrence of the external cause; I87.2 Venous insufficiency (chronic) (peripheral); S81.802A Unspecified open wound, left lower leg, initial encounter; I83.008 Varicose veins of unspecified lower extremity with ulcer other part of lower leg; R62.7 Adult failure to thrive; R63.4 Abnormal weight loss; Z68.32 Body mass index [BMI] 32.0-32.9, adult; Z87.891 Personal history of nicotine dependence; Z79.82 Long term (current) use of aspirin; Z53.29 Procedure and treatment not carried out because of patient's decision for other reasons; Z79.899 Other long term (current) drug therapy

== ENCOUNTER 2016-06-24 14:42 | Inpatient (IN) | payer OTHER ==
[~2016-06-24] VITALS: Ht 160 cm; Wt 83.3 kg
[~2016-06-24 14:42] MED LIST changes: -ASPI81TA28 PO; -B-COCAP2 PO; -CLR10 PO; -LAVAGE SOLUTION 4000ML PO SCH; -LEVO-366 PO; -LOSA50TA6 PO; +PANT40TA PO; -areds PO; -prednisone
[2016-06-24 15:52] VITALS: BP 121/76; PULSE 102; TEMP 36.5; O2SAT 97
[2016-06-24] MEDS ORDERED: ONDANSETRON INJ 2 MG/ML 2 ML VIAL IV PRN (17:00)
[2016-06-24] MEDS ORDERED: POLYETHYLENE (MIRALAX) 17 GM PACK PO PRN (17:00)
[2016-06-24 17:27] VITALS: BP 121/76; PULSE 102; TEMP 36.5; Ht 160 cm; Wt 83.3 kg
[2016-06-24 18:38] LABS: HEMATOCRIT 29.4 % (37-47); MEAN CELL VOLUME 90.5 fL (80-100); MEAN CORPUSCULAR HEMOGLOBIN 28.9 pg (25-34); MEAN PLATELET VOLUME 10.5 fL (7.4-10.4); PLATELET COUNT 315 K/uL (130-400); RED BLOOD COUNT 3.25 M/uL (4.2-5.4); WHITE BLOOD COUNT 13.28 K/uL (4.8-10.8)
[2016-06-24] MEDS ORDERED: PNEUMOCOCCAL ADMINISTRATION CHARGE ONE (18:45)
[2016-06-24] MEDS ORDERED: PNEUMOCOCCAL POLYSACCHARIDES 25 MCG/0.5 ML VIAL/SYR IM. ONE (18:45)
[2016-06-24 19:08] LABS: CALCIUM 8.3 mg/dl (8.5-10.1); CREATININE 1.6 mg/dl (0.60-1.20); POTASSIUM 3.5 mmol/L (3.5-5.1)
[2016-06-24] MEDS ORDERED: VANCOMYCIN CONSULT ACTIVE PRN (20:00)
[2016-06-24] MEDS ORDERED: PIPERACILL/TAZOBAC CONSULT ACTIVE PRN (20:00)
[2016-06-24] MEDS ORDERED: PIPERACILL/TAZOBAC IV 3.375 GM in DEXTROSE 5% 100ML IV ONE (20:30)
[2016-06-24] MEDS ORDERED: VANCOMYCIN INJ 1,750 MG in SODIUM CHLORIDE 0.9% 500ML 500 ML IV ONE (20:30)
[2016-06-24] MEDS: PENTOXIFYLLINE 400MG EXT REL TAB PO SCH (20:51)
[2016-06-24] MEDS: SODIUM CHLORIDE 0.45% 1000ML 1,000 ML IV SCH (22:33)
--- NOTE | 2016-06-24 23:08 | History and Physical ---
History & Physical Date & Time of Service: Jun 24, 2016 at 23:02 Chief Complaint: Lower Left Extremity Cellulitis Primary Care Physician: Aurelio Chew M.D. History of Present Illness Source: patient 80 year old female with a history of CKD III, peripheral arterial disease and venous insufficiency with chronic L leg wounds, and AAA measuring 5.0 cm discharged yesterday after an admission 06/17-06/23 with a rectal bleed and LOLA with chronic venous insufficiency and left lower extremity wound , now a direct admit from the [facility] with concerns of lower left extremity cellulitis. Patient has a h/o chronic venous insufficiency and has a wound on her left leg which grew pseudomonas on a culture from 05/27 and was started on Levaquin by her wound care doctor. During her last admission, Levaquin was stopped after using it for 11 days with concerns of a drug rash. she refused to have Levaquin restarted and wanted to see her Wound care doctor as an out patient and was adamant to be discharged to see her who was also recently discharged from . denies any fevers/chills, worsening pain, numbness.tingling. - she was admitted with GI bleed 06/17-06/23, declined any Colonoscopies/ endoscopies but has had no active bleeding currently. No abdominal pain. currently on Protonix. Past Medical/Surgical History Medical Problems: (1) Hypertension Status: Chronic Family History Patient reports no known family medical history. Social History Smoking Status: Former Smoker Drug Use: none Marital Status: Housing status: lives with family Occupational Status: retired Multi-Drug Resistant Organisms History of MDRO: No Allergies Coded Allergies: Erythromycin (Verified Allergy, Intermediate, RASH, 06/17/16) Iodinated Diagnostic Agents (Verified Allergy, Intermediate, RASH, 06/17/16 ) Latex1 -Allergic Contact Dermititis (Verified Allergy, Mild, RASH, 06/17/16 ) Uncoded Allergies: ALL "RUBEN" (Allergy, Unknown, UNKNOWN, 11/13/08) Home Medications Scheduled Furosemide (Lasix), 1 TAB PO DAILY Levothyroxine Sodium (Synthroid), 150 MCG PO DAILY Pantoprazole Sodium (Protonix), 1 TAB PO DAILY Pentoxifylline (Trental), 400 MG PO TID Simvastatin (Zocor), 40 MG PO DAILY Scheduled PRN Ondansetron Hcl (Zofran), 4 MG PO for Nausea Review of Systems Constitutional: No chills, No fever Eyes: No worsening of vision ENT: No hearing loss Respiratory: No cough, No sputum Cardiovascular: No chest pain Abdomen: No GI bleeding, No nausea, No pain, No vomiting Musculoskeletal: No joint pain Genitourinary - Female: No dysuria Neurologic: No paralysis Physical Exam Vital Signs Date Time Temp Pulse Resp B/P Pulse Ox O2 Delivery O2 Flow Rate FiO2 06/24/16 17:27 36.5 102 16 121/76 Room Air 06/24/16 16:10 Room Air 06/24/16 15:52 36.5 102 16 121/76 97 General Appearance: WD/WN, no apparent distress Head: normocephalic Eyes: normal inspection ENT: hearing grossly normal Neck: supple Respiratory/Chest: chest non-tender, lungs clear, normal breath sounds, no respiratory distress, no accessory muscle use Cardiovascular: regular rate, rhythm Abdomen/GI: normal bowel sounds, soft Back: normal inspection Extremities/Musculoskelatal: + swelling Neurologic/Psych: alert, normal mood/affect, oriented x 3 Skin: + rash (erythematous rash on both thighs b/l, arms and hands) Diagnostics Laboratory Results Results Past 24 Hours Test 06/24/16 18:22 Range/Units White Blood Count 13.28 4.8-10.8 K/uL Red Blood Count 3.25 4.2-5.4 M/uL Hemoglobin 9.4 12.0-16.0 g/dL Hematocrit 29.4 37-47 % Mean Corpuscular Volume 90.5 80-100 fL Mean Corpuscular Hemoglobin 28.9 25-34 pg Mean Corpuscular Hemoglobin Concent 32.0 32-36 g/dl RDW Standard Deviation 58.8 36.4-46.3 fL RDW Coefficient of Variation 17.8 11.5-14.5 % Platelet Count 315 130-400 K/uL Mean Platelet Volume 10.5 7.4-10.4 fL Sodium Level 149 136-145 mmol/L Potassium Level 3.5 3.5-5.1 mmol/L Chloride Level 116 98-107 mmol/L Carbon Dioxide Level 20 21-32 mmol/L Anion Gap 13.0 3-11 mmol/L Blood Urea Nitrogen 24 7-18 mg/dl Creatinine 1.60 0.60-1.20 mg/dl Est Creatinine Clear Calc Drug Dose 28.7 ml/min Estimated GFR () 34.9 Estimated GFR (Non- 30.1 BUN/Creatinine Ratio 15.0 10-20 Random Glucose 95 70-99 mg/dl Calcium Level 8.3 8.5-10.1 mg/dl Impression Assessment and Plan 80 year old female with a history of CKD III, peripheral arterial disease and venous insufficiency with chronic L leg wounds, and AAA measuring 5.0 cm discharged yesterday after an admission with a rectal bleed and LOLA with chronic venous insufficiency and left sided ulcer here with left lower extremity cellulitis Left lower extremity Cellulitis with a pseudomonal ulcer : Chronic leg wounds secondary to venous insufficiency and peripheral arterial disease/lymphedema. - Wound culture 05/27 grew pseudomonas and patient was started on Levaquin by wound care - Patient used Levaquin for about 11 days and stopped with concerns of a rash from the drug and refused to be restarted on Levaquin and only wanted to see Her Wound care doctor - wound culture at wound care centre 06/24 -pending - IV vancomycin and Zosyn - ID consult - Wound care consult GI bleeding: likely sec to hemorrhoids - Hemoccult positive during last admission - C. difficile toxin assay negative last week - Colonoscopy/EGD declined by patient - H &H stable - Protonix 40 mg daily - Avoid aspirin Acute Blood Loss Anemia, secondary to rectal bleeding: no active bleeding currently - Hemoglobin of 9.3 at admission - Monitor H&H LOLA on background of CKD III - Cr at 1.6, was 1.2 on discharge yesterday - Continue to avoid nephrotoxins - Holding Cozaar, Lasix Hypernatremia: - Na at 149 - I/2N - Monitor Na Chronic back pain - Frequent repositioning; Heat packs; Tylenol PRN. - Patient needs continued PT/OT sessions Infrarenal AAA - This has been stable per pt, currently measuring 5.0 cm. Failure to thrive/Weight loss - Pre-albumin WNL - Consult nutrition - Re-conditioning with PT/OT - Consider malignancy from GI source; cannot adequate evaluate at this time due to patient refusal DVT prophylaxis - No DVT prophylaxis due to concern for continued bleeding - SCD if patient can tolerate with chronic wound Code Status - Full code Disposition - Med/Surg Advanced Directives Existing Advance Directive: Yes Existing Living Will: Yes Existing Power of Gas Distribution And Emergency Clerk: Yes Resuscitation Status FULL RESUSCITATION VTE Prophylaxis VTE Risk Assessment Done? Y/N: Yes Risk Level: Moderate Given or contraindicated: SCD's Reviewed: Pt Seen/Exam by MARC Lam Notes, Prior Records, Labs, RAD History Resident Physician Supervision Note: I interviewed and examined the patient. Discussed with Dr. Hummel and agree with findings and plan as documented in the note. Any exceptions or clarifications are listed here: Pt reports feeling much better today than yesterday. Here with cellulitis of left leg. Has long h/o many months of going to Wound Care clinic, admitted and discharged yesterday for severe LOLA, GI bleeding after being on Levaquin for 12 days. Also with drug rash for about 2 months, thought to have started after bactrim as per pt but worse with Levaquin she says. Here for IV abx for previous Pseudomonas infection and intolerance of po levaquin. Anemia stable, manager maintenance slightly worse again, dehydrated. Vitals reviewed Obese, NAD RRR no mgr nl S1S2 CTAB no wcr Abd +BS soft NT ND Ext left leg with dressing and wrap in place and not removed today as was just dressed by wound care MD however pictures reviewed that were taken today A/P: 80 yo female with a h/o PAD, venous insufficiency, HTN, CKD III, GI bleeding and recent acute blood loss anemia, with chronic left leg wound, now with worsening cellulitis. Zosyn and vanc as per ID COnsult Wound MD Hold lasix again for acute kidney injury follow CBC and holding ASA due to recent GI bleed for which she declined all scopes or eval Documented By: Melissa Cruz
--- NOTE | 2016-06-24 23:18 | Pharmacy Progress Note ---
Pharmacy Antibiotic Consult Date of Service: Jun 24, 2016. Pharmacy Dosing Scope Pharmacy is consulted to initiate vancomycin and zosyn IV dosing therapy, order appropriate labs and adjust drug dose/frequency. Subjective The patient is a 80 year old female admitted on Jun 24, 2016 at 15:35. Objective Height (Feet): 5 Height (Inches): 3.00 Weight (Kilograms): 83.300 Lab Results (24hrs): Laboratory Tests Test 06/24/16 18:22 BUN/Creatinine Ratio 15.0 Blood Urea Nitrogen 24 mg/dl Creatinine 1.60 mg/dl White Blood Count 13.28 K/uL Assessment & Plan Patient started on vancomycin and zosyn for cellulitis infection. Has hx of chronic leg wounds (previously on levaquin) Vancomycin: * Patient received LD 1750mg iv x 1 (~21 mg/kg) * Will start MD of vancomycin 1000 mg (~12 mg/kg) iv q 24 hrs for an estimated trough ~15 mcg/ml (goal for cellulitis) * Estimated kinetics: t1/2~24 hrs, ke~0.027 hr-1; baseline Scr closer to 1.1 mg/ dL * Will plan to obtain trough in next 2-3 days or sooner if renal function changes Zosyn: * 3.375 gm iv q 8 hrs - appropriate for CrCl >20 ml/min (actual CrCl ~29 ml/min ) Pharmacy will continue to follow and will adjust dose/frequency as necessary. Thank you
[2016-06-24 23:35] VITALS: BP 108/55; PULSE 102; TEMP 37.1; O2SAT 97
[2016-06-24] MEDS: ACETAMINOPHEN 325 MG TAB PO PRN (23:49)
[2016-06-25] MEDS ORDERED: PIPERACILL/TAZOBAC IV 3.375 GM in DEXTROSE 5% 100ML 100 ML IV SCH ×2
[2016-06-25] MEDS: PIPERACILL/TAZOBAC IV 3.375 GM in DEXTROSE 5% 100ML IV SCH ×3 (02:08→17:40)
[2016-06-25] MEDS ORDERED: OXYCODONE/ACETAMINOPHEN 5-325 TAB PO PRN (02:30)
[2016-06-25] MEDS: ACETAMINOPHEN 325 MG TAB PO PRN (04:16)
[2016-06-25] MEDS: LEVOTHYROXINE 150 MCG TAB PO SCH (05:45)
[2016-06-25 06:00] LABS: BASO % 0.5 %; BASO ABS # 0.04 K/uL (0-0.2); EOS % 6.5 %; HEMATOCRIT 23.7 % (37-47); IG% 0.5 %; LYMPH % 15.7 %; LYMPH ABS # 1.31 K/uL (1.2-3.4); MEAN CELL VOLUME 89.1 fL (80-100); MEAN CORPUSCULAR HEMOGLOBIN 29.3 pg (25-34); MEAN CORPUSCULAR HGB CONC 32.9 g/dl (32-36); MEAN PLATELET VOLUME 10.2 fL (7.4-10.4); MONO % 13.7 %; NEUT % 63.1 %; PLATELET COUNT 261 K/uL (130-400); RED BLOOD COUNT 2.66 M/uL (4.2-5.4); WHITE BLOOD COUNT 8.33 K/uL (4.8-10.8)
[2016-06-25 06:26] LABS: COMPLETE YES; POLYCHROMASIA 1+
[2016-06-25 06:28] LABS: BUN/CREATININE RATIO 15.3 (10-20); CALCIUM 7.5 mg/dl (8.5-10.1); CREATININE 1.5 mg/dl (0.60-1.20); MAGNESIUM 1.4 mg/dl (1.8-2.4); POTASSIUM 3.5 mmol/L (3.5-5.1)
[2016-06-25 06:31] LABS: C-REACTIVE PROTEIN 3.52 mg/dl (0-0.29)
[2016-06-25 06:51] VITALS: BP 103/52; PULSE 79; TEMP 36.8; O2SAT 95
[2016-06-25] MEDS: PANTOprazole SOD 40 MG TAB PO SCH (08:55)
[2016-06-25] MEDS: SIMVASTATIN 40 MG TAB PO SCH (08:55)
[2016-06-25] MEDS: PENTOXIFYLLINE 400MG EXT REL TAB PO SCH ×3 (08:55→21:06)
[2016-06-25] MEDS: SODIUM CHLORIDE 0.45% 1000ML 1,000 ML IV SCH (08:56)
[2016-06-25] MEDS ORDERED: FUROSEMIDE 20 MG TAB PO SCH (09:00)
--- NOTE | 2016-06-25 12:05 | Medical Consult ---
Consultation Date of Consultation: Jun 25, 2016. Attending Physician: Melissa Cruz MD Reason for Consultation: LLE ulcer, pseudomonas History of Present Illness Patient is an 80-year-old female directly admitted to the hospital from the wound Care Center with history of CKD stage 3, peripheral arterial disease, venous insufficiency, and chronic left leg wounds. She it was a recently admitted for a GI bleed and acute kidney injury last week and was discharged on 06/23. She then followed up with the Wound Care Center yesterday who had severe concerns regarding the patient's left lower extremity and recommended the patient be admitted once again. Upon review of the patient's chart, it was noted that during her last admission, she did have a wound culture of the left lower extremity which grew pansensitive Pseudomonas. She was placed on Levaquin , but she developed a rash a few days into therapy. Therefore, her Levaquin was discontinued. She does also have history of MSSA growing from her lower extremity wounds. On admission, the patient white blood cell count was 13.28. Her creatinine was 1.60. Her repeat wound culture from the wound Care Center is pending. Most recent wound images were reviewed by myself today. Past Medical/Surgical History Medical Problems: (1) Acute blood loss anemia Status: Acute (2) ARF (acute renal failure) Status: Acute (3) GI bleeding Status: Acute (4) Shoulder fracture, left Status: Acute (5) Vomiting and diarrhea Status: Acute Medical Problems: (1) Acute kidney injury (2) Cellulitis of left lower extremity (3) Hypertension Family History Patient reports no known family medical history. Noncontributory Social History Smoking Status: Former Smoker Drug Use: none Marital Status: Housing Status: lives with family Occupation Status: retired Allergies Coded Allergies: Erythromycin (Verified Allergy, Intermediate, RASH, 06/17/16) Iodinated Diagnostic Agents (Verified Allergy, Intermediate, RASH, 06/17/16 ) Latex1 -Allergic Contact Dermititis (Verified Allergy, Mild, RASH, 06/17/16 ) Uncoded Allergies: ALL "RUBEN" (Allergy, Unknown, UNKNOWN, 11/13/08) Home Medications Reported Home Medications Medications Dose Route/Sig Max Daily Dose Days Date Category Protonix (Pantoprazole Sodium) 40 Mg Tab 1 Tab PO DAILY 30 06/23/16 Rx Zofran (Ondansetron HCl) 4 Mg Tab 4 Mg PO PRN 06/11/16 Reported Lasix (Furosemide) 20 Mg Tab 1 Tab PO DAILY 90 02/04/16 Reported Zocor (Simvastatin) 40 Mg Tab 40 Mg PO DAILY 11/23/15 Reported Synthroid (Levothyroxine Sodium) 150 Mcg Tab 150 Mcg PO DAILY 11/23/15 Reported Trental (Pentoxifylline) 400 Mg Tabcr 400 Mg PO TID 11/13/08 Reported Current Inpatient Medications Current Inpatient Medications Medications (Trade) Dose Ordered Sig/Jose Route Start Time Stop Time Status Last Admin Dose Admin Acetaminophen (Tylenol Tab) 650 mg Q4H PRN PO 06/24/16 17:00 07/24/16 16:59 06/25/16 04:16 650 MG Polyethylene (Miralax Powder Packet) 17 gm DAILY PRN PO 06/24/16 17:00 07/24/16 16:59 Ondansetron HCl (Zofran Inj) 4 mg Q6H PRN IV 06/24/16 17:00 07/24/16 16:59 Levothyroxine Sodium (Synthroid Tab) 150 mcg DAILYBB PO 06/25/16 06:00 07/25/16 05:59 06/25/16 05:45 150 MCG Pantoprazole Sodium (Protonix Tab) 40 mg DAILY PO 06/25/16 09:00 07/25/16 08:59 06/25/16 08:55 40 MG Pentoxifylline (Trental Tab) 400 mg TID PO 06/24/16 21:00 07/24/16 20:59 06/25/16 08:55 400 MG Simvastatin 40 mg 40 mg DAILY PO 06/25/16 09:00 07/25/16 08:59 06/25/16 08:55 40 MG Vancomycin HCl/ Sodium Chloride (Vancomycin Inj/ Nss 250ml) 270 ml @ 125 mls/hr DAILY@2200 IV 06/25/16 22:00 07/05/16 21:59 Vancomycin HCl (Consult) 1 ea UD PRN N/A 06/24/16 20:00 07/24/16 19:59 Piperacillin Sod/ Tazobactam Sod 1 ea 1 ea UD PRN N/A 06/24/16 20:00 07/24/16 19:59 Piperacillin Sod/ Tazobactam Sod/ Dextrose (Zosyn Iv/D5 100ml) 115 ml @ 28.75 mls/ hr Q8H IV 06/25/16 02:00 07/05/16 01:59 06/25/16 09:35 28.75 MLS/HR Oxycodone/ Acetaminophen 1 tab 1 tab Q4H PRN PO 06/25/16 02:30 07/09/16 02:29 06/25/16 02:41 1 TAB Magnesium Sulfate 1 gm/Prmx 100 ml @ 100 mls/hr TODAY@1200,1300 IV 06/25/16 12:00 06/25/16 13:59 Dextrose (D5W 1000ml) 1,000 ml @ 75 mls/hr [id number] IV 06/25/16 11:30 07/25/16 11:29 UNV Review of Systems Constitutional: No chills, No fever, No sweats Eyes: No worsening of vision ENT: No hearing loss Respiratory: No cough Cardiovascular: No chest pain Abdomen: + constipation, No nausea, No pain, No vomiting Musculoskeletal: + problem reported (pain of bilateral lower extremities. L>R) , + swelling (bilateral lower extremities ) Genitourinary - Female: No dysuria Psychiatric: No problem reported Hematologic / Lymphatic: No problem reported Integumentary: + color change (severe erythema of the LLE, very mild erythema of the mid-right LE. ), + itch, + rash (from previous admission- thought to be drug rash on upper extremities) Physical Exam Date Time Temp Pulse Resp B/P Pulse Ox O2 Delivery O2 Flow Rate FiO2 06/25/16 08:08 Room Air 06/25/16 06:51 36.8 79 15 103/52 95 Room Air 06/24/16 23:48 Room Air 06/24/16 23:35 37.1 102 16 108/55 97 Room Air 06/24/16 17:27 36.5 102 16 121/76 Room Air 06/24/16 16:10 Room Air 06/24/16 15:52 36.5 102 16 121/76 97 General Appearance: no apparent distress, + obese Head: normocephalic, atraumatic Eyes: normal inspection, sclerae normal ENT: hearing grossly normal Neck: supple, trachea midline Respiratory/Chest: chest non-tender, lungs clear, normal breath sounds, no respiratory distress, no accessory muscle use Cardiovascular: regular rate, rhythm Abdomen/GI: normal bowel sounds, non tender, soft Back: normal inspection, no CVA tenderness Extremities/Musculoskelatal: no calf tenderness, normal capillary refill, + swelling (1-2+ pitting edema RLE. Mild edema of LLE as well. Severe tenderness of the LLE) Neurologic/Psych: alert, normal mood/affect Skin: warm/dry, + rash (light erythematous rash of the bilateral upper extremities, raised, dry. Moderately severe erythema of the LLE with moderate clear weeping. Mild erythema of the mid-right lower extremity. No tenderness of RLE) Laboratory Results Last 24 Hours Test 06/24/16 18:22 06/25/16 05:30 White Blood Count 13.28 K/uL 8.33 K/uL Red Blood Count 3.25 M/uL 2.66 M/uL Hemoglobin 9.4 g/dL 7.8 g/dL Hematocrit 29.4 % 23.7 % Mean Corpuscular Volume 90.5 fL 89.1 fL Mean Corpuscular Hemoglobin 28.9 pg 29.3 pg Mean Corpuscular Hemoglobin Concent 32.0 g/dl 32.9 g/dl RDW Standard Deviation 58.8 fL 58.4 fL RDW Coefficient of Variation 17.8 % 18.0 % Platelet Count 315 K/uL 261 K/uL Mean Platelet Volume 10.5 fL 10.2 fL Sodium Level 149 mmol/L 149 mmol/L Potassium Level 3.5 mmol/L 3.5 mmol/L Chloride Level 116 mmol/L 118 mmol/L Carbon Dioxide Level 20 mmol/L 21 mmol/L Anion Gap 13.0 mmol/L 10.0 mmol/L Blood Urea Nitrogen 24 mg/dl 23 mg/dl Creatinine 1.60 mg/dl 1.50 mg/dl Est Creatinine Clear Calc Drug Dose 28.7 ml/min 30.6 ml/min Estimated GFR () 34.9 37.7 Estimated GFR (Non- 30.1 32.6 BUN/Creatinine Ratio 15.0 15.3 Random Glucose 95 mg/dl 90 mg/dl Calcium Level 8.3 mg/dl 7.5 mg/dl Neutrophils (%) (Auto) 63.1 % Lymphocytes (%) (Auto) 15.7 % Monocytes (%) (Auto) 13.7 % Eosinophils (%) (Auto) 6.5 % Basophils (%) (Auto) 0.5 % Neutrophils # (Auto) 5.26 K/uL Lymphocytes # (Auto) 1.31 K/uL Monocytes # (Auto) 1.14 K/uL Eosinophils # (Auto) 0.54 K/uL Basophils # (Auto) 0.04 K/uL Immature Granulocyte % (Auto) 0.5 % Immature Granulocyte # (Auto) 0.04 K/uL Polychromasia 1+ Erythrocyte Sedimentation Rate 20 mm/hr Magnesium Level 1.4 mg/dl Total Bilirubin 0.9 mg/dl Direct Bilirubin 0.2 mg/dl Aspartate Amino Transf (AST/SGOT) 17 U/L Alanine Aminotransferase (ALT/SGPT) 12 U/L Alkaline Phosphatase 53 U/L C-Reactive Protein 3.52 mg/dl Total Protein 4.6 gm/dl Albumin 1.9 gm/dl Assessment & Plan Patient with severe weeping cellulitis of the left lower extremity. Most recent wound culture from wound care visit prior to admission is pending. Patient has previously had Pseudomonas and MSSA from her LLE. She is currently on IV Vancomycin and Zosyn. Recommending continued broad spectrum IV abx therapy pending culture results. Patient likely will require multiple days of IV antibiotic therapy, but duration will depend on improvement. We will follow. PROVIDER ADDENDUM: Patient examined and reviewed with Ms. Pate. Agree with above assessment. We will adjust antibiotics once cultures are available.
[2016-06-25] MEDS: DEXTROSE 5% 1000ML 1,000 ML IV SCH (12:38)
[2016-06-25] MEDS: MAGNESIUM SULFATE 1GM / D5W 1 GM in PREMIXED IN D5W 100 ML IV SCH ×2 (12:38→13:39)
--- NOTE | 2016-06-25 14:14 | CONSULTATION REPORT ---
DATE OF CONSULTATION: 06/25/2016 SUBJECTIVE: The patient is seen today following admission yesterday through the [facility]. The patient states that she is having decreased pain today, although still complaining of constipation. The patient denies any fever, chills or night sweats. The patient denies any new rashes or pruritus. OBJECTIVE: The patient's vital signs were reviewed and found to be unremarkable. The patient is afebrile. The patient is currently sitting in the hospital chair in no acute distress, alert and cooperative throughout the examination. The left extremity is dressed at this time and there is no evidence of increased swelling or proximal erythema noted. ASSESSMENT: Cellulitis, left lower extremity in the face of venous stasis, peripheral edema. PLAN: Continued antibiotic therapy will be controlled per Dr. Villeda pending the culture results which were obtained yesterday in the outpatient setting. The patient will continue to be monitored during her hospital course and the dressings will be the same with Aquacel AG and gauze changed daily along with 1 layer Tubigrip.
--- NOTE | 2016-06-25 14:22 | Family Medicine Progress Note ---
Progress Note Date of Service Jun 25, 2016. Subjective Pt evaluation today including: conversation w/ patient, physical exam, chart review, lab review Pain: c/o leftr lower extemity pain PO Intake: good Voiding: no voiding problems - Doing better, was in pain last night and received Percocet for pain control. denies any fever/chills. had not had a BM today and requests something to help her go, she is concerned that it would cause her hemorrhoids to bleed. Constitutional: No chills, No fever Eyes: No worsening of vision ENT: No hearing loss Respiratory: No cough, No shortness of breath, No sputum, No wheezing Cardiovascular: No chest pain Abdomen: + constipation, No nausea, No pain, No vomiting Musculoskeletal: + problem reported (pain in LLE) Female : No dysuria Neurologic: No memory loss Medications Current Inpatient Medications Medications (Trade) Dose Ordered Sig/Jose Route Start Time Stop Time Status Last Admin Dose Admin Acetaminophen (Tylenol Tab) 650 mg Q4H PRN PO 06/24/16 17:00 07/24/16 16:59 06/25/16 04:16 650 MG Polyethylene (Miralax Powder Packet) 17 gm DAILY PRN PO 06/24/16 17:00 07/24/16 16:59 Ondansetron HCl (Zofran Inj) 4 mg Q6H PRN IV 06/24/16 17:00 07/24/16 16:59 Levothyroxine Sodium (Synthroid Tab) 150 mcg DAILYBB PO 06/25/16 06:00 07/25/16 05:59 06/25/16 05:45 150 MCG Pantoprazole Sodium (Protonix Tab) 40 mg DAILY PO 06/25/16 09:00 07/25/16 08:59 06/25/16 08:55 40 MG Pentoxifylline (Trental Tab) 400 mg TID PO 06/24/16 21:00 07/24/16 20:59 06/25/16 13:39 400 MG Simvastatin 40 mg 40 mg DAILY PO 06/25/16 09:00 07/25/16 08:59 06/25/16 08:55 40 MG Vancomycin HCl/ Sodium Chloride (Vancomycin Inj/ Nss 250ml) 270 ml @ 125 mls/hr DAILY@2200 IV 06/25/16 22:00 07/05/16 21:59 Vancomycin HCl (Consult) 1 ea UD PRN N/A 06/24/16 20:00 07/24/16 19:59 Piperacillin Sod/ Tazobactam Sod 1 ea 1 ea UD PRN N/A 06/24/16 20:00 07/24/16 19:59 Piperacillin Sod/ Tazobactam Sod/ Dextrose (Zosyn Iv/D5 100ml) 115 ml @ 28.75 mls/ hr Q8H IV 06/25/16 02:00 07/05/16 01:59 06/25/16 09:35 28.75 MLS/HR Oxycodone/ Acetaminophen 1 tab 1 tab Q4H PRN PO 06/25/16 02:30 07/09/16 02:29 06/25/16 02:41 1 TAB Dextrose (D5W 1000ml) 1,000 ml @ 75 mls/hr [id number] IV 06/25/16 12:00 07/25/16 11:59 06/25/16 12:38 75 MLS/HR Objective Vital Signs Date Time Temp Pulse Resp B/P Pulse Ox O2 Delivery O2 Flow Rate FiO2 06/25/16 08:08 Room Air 06/25/16 06:51 36.8 79 15 103/52 95 Room Air 06/24/16 23:48 Room Air 06/24/16 23:35 37.1 102 16 108/55 97 Room Air 06/24/16 17:27 36.5 102 16 121/76 Room Air 06/24/16 16:10 Room Air 06/24/16 15:52 36.5 102 16 121/76 97 Physical Exam General Appearance: WD/WN, no apparent distress Eyes: normal inspection ENT: normal ENT inspection, hearing grossly normal Neck: supple, no adenopathy Respiratory/Chest: chest non-tender, lungs clear, normal breath sounds Cardiovascular: regular rate, rhythm, no edema Abdomen: normal bowel sounds, non tender, soft Extremities: + pertinent finding (LLE swelling with erythema, tenderness , s/p debridement.) Neurologic/Psychiatric: alert, normal mood/affect, oriented x 3 Skin: + rash (diffusely erythematous rash on b/l thighs, arms) Laboratory Results 06/25/16 05:30 Red Blood Count 2.66, Mean Corpuscular Volume 89.1, Mean Corpuscular Hemoglobin 29.3, Mean Corpuscular Hemoglobin Concent 32.9, Mean Platelet Volume 10.2, Neutrophils (%) (Auto) 63.1, Lymphocytes (%) (Auto) 15.7, Monocytes (%) (Auto) 13.7, Eosinophils (%) (Auto) 6.5, Basophils (%) (Auto) 0.5, Neutrophils # (Auto ) 5.26, Lymphocytes # (Auto) 1.31, Monocytes # (Auto) 1.14, Eosinophils # (Auto ) 0.54, Basophils # (Auto) 0.04 06/25/16 05:30 Test 06/25/16 05:30 White Blood Count 8.33 K/uL (4.8-10.8) Red Blood Count 2.66 M/uL (4.2-5.4) Hemoglobin 7.8 g/dL (12.0-16.0) Hematocrit 23.7 % (37-47) Mean Corpuscular Volume 89.1 fL (80-100) Mean Corpuscular Hemoglobin 29.3 pg (25-34) Mean Corpuscular Hemoglobin Concent 32.9 g/dl (32-36) Platelet Count 261 K/uL (130-400) Mean Platelet Volume 10.2 fL (7.4-10.4) Neutrophils (%) (Auto) 63.1 % Lymphocytes (%) (Auto) 15.7 % Monocytes (%) (Auto) 13.7 % Eosinophils (%) (Auto) 6.5 % Basophils (%) (Auto) 0.5 % Neutrophils # (Auto) 5.26 K/uL (1.4-6.5) Lymphocytes # (Auto) 1.31 K/uL (1.2-3.4) Monocytes # (Auto) 1.14 K/uL (0.11-0.59) Eosinophils # (Auto) 0.54 K/uL (0-0.5) Basophils # (Auto) 0.04 K/uL (0-0.2) RDW Standard Deviation 58.4 fL (36.4-46.3) RDW Coefficient of Variation 18.0 % (11.5-14.5) Immature Granulocyte % (Auto) 0.5 % Immature Granulocyte # (Auto) 0.04 K/uL (0.00-0.02) Polychromasia 1+ Erythrocyte Sedimentation Rate 20 mm/hr (0-21) Anion Gap 10.0 mmol/L (3-11) Est Creatinine Clear Calc Drug Dose 30.6 ml/min Estimated GFR () 37.7 Estimated GFR (Non- 32.6 BUN/Creatinine Ratio 15.3 (10-20) Calcium Level 7.5 mg/dl (8.5-10.1) Magnesium Level 1.4 mg/dl (1.8-2.4) Total Bilirubin 0.9 mg/dl (0.2-1) Direct Bilirubin 0.2 mg/dl (0-0.2) Aspartate Amino Transf (AST/SGOT) 17 U/L (15-37) Alanine Aminotransferase (ALT/SGPT) 12 U/L (12-78) Alkaline Phosphatase 53 U/L (45-117) C-Reactive Protein 3.52 mg/dl (0-0.29) Total Protein 4.6 gm/dl (6.4-8.2) Albumin 1.9 gm/dl (3.4-5.0) Assessment and Plan 80 year old female with a history of CKD III, peripheral arterial disease and venous insufficiency with chronic L leg wounds, and AAA measuring 5.0 cm discharged on 06/23 after an admission with a rectal bleed and LOLA with chronic venous insufficiency and left sided ulcer here with left lower extremity cellulitis Left lower extremity Cellulitis with a pseudomonal ulcer : Chronic leg wounds secondary to venous insufficiency and peripheral arterial disease/lymphedema. - Wound culture 05/27 grew pseudomonas and patient was started on Levaquin by wound care - Patient used Levaquin for about 11 days and stopped with concerns of a rash from the drug and refused to be restarted on Levaquin and only wanted to see her Wound care doctor - Wound culture at wound care centre 06/24 -pending - IV vancomycin and Zosyn - ID consult - appreciate input - Wound care consult Constipation: - Miralax daily GI bleeding: likely sec to hemorrhoids - Hemoccult positive during last admission - C. difficile toxin assay negative last week - Colonoscopy/EGD declined by patient - H &H stable - Protonix 40 mg daily - Avoid aspirin Acute Blood Loss Anemia, secondary to rectal bleeding: no active bleeding currently - Hemoglobin of 9.3 at admission, today at 7.8 - Monitor H&H LOLA on background of CKD III - Cr at 1.6, was 1.2 on discharge yesterday - Continue to avoid nephrotoxins - Holding Cozaar, Lasix Hypernatremia: - Na at 149 - switched to D5W Hypomagnesemia: Mg at 1.4 - Mgso4 2 Meq added Chronic back pain - Frequent repositioning; Heat packs; Tylenol PRN. - Patient needs continued PT/OT sessions Infrarenal AAA - This has been stable per pt, currently measuring 5.0 cm. 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 - continue pentoxifylline - will likely benefit from Vascular surgery consult as it it contributing to her wounds Failure to thrive/Weight loss - Pre-albumin WNL - Consult nutrition - Re-conditioning with PT/OT - Consider malignancy from GI source; cannot adequate evaluate at this time due to patient refusal DVT prophylaxis - No DVT prophylaxis due to concern for continued bleeding - SCD if patient can tolerate with chronic wound Code Status - Full code Disposition - Med/Surg Reviewed: Pt Seen/Exam by MARC Lam Notes, Labs History Resident Physician Supervision Note: I interviewed and examined the patient. Discussed with Dr. Hummel and agree with findings and plan as documented in the note. Any exceptions or clarifications are listed here: Pt feeling much better, afebrile Vital sreviewed NAD RRR no mgr Pulm CTAB no wcr Ext: dressing not removed but pics from today look markedly improved A/P:80 yo female with a h/o PAD, venous insufficiency, HTN, CKD III, GI bleeding and recent acute blood loss anemia, with chronic left leg wound, now with worsening cellulitis. Improving Zosyn and vanc as per ID COnsult Wound MD appreciated Hold lasix for acute kidney injury follow CBC and holding ASA due to recent GI bleed for which she declined all scopes or eval Documented By: Melissa Cruz
[2016-06-25] MEDS: POLYETHYLENE (MIRALAX) 17 GM PACK PO SCH (14:32)
[2016-06-25 15:37] VITALS: BP 117/67; PULSE 77; TEMP 36.6; O2SAT 96
[2016-06-25 16:00] VITALS: O2SAT 96
[2016-06-25] MEDS: VANCOMYCIN INJ 1,000 MG in SODIUM CHLORIDE 0.9% 250ML 250 ML IV SCH (21:05)
[2016-06-25 23:16] VITALS: BP 113/64; PULSE 85; TEMP 36.8; O2SAT 96
[2016-06-26] MEDS: DEXTROSE 5% 1000ML 1,000 ML IV SCH (01:12)
[2016-06-26] MEDS: PIPERACILL/TAZOBAC IV 3.375 GM in DEXTROSE 5% 100ML IV SCH ×3 (01:31→17:44)
[2016-06-26] MEDS: LEVOTHYROXINE 150 MCG TAB PO SCH (05:41)
[2016-06-26 07:31] LABS: BASO % 0.3 %; BASO ABS # 0.02 K/uL (0-0.2); EOS % 6.9 %; HEMATOCRIT 23.1 % (37-47); IG% 0.3 %; LYMPH % 17.3 %; LYMPH ABS # 1.22 K/uL (1.2-3.4); MEAN CELL VOLUME 88.8 fL (80-100); MEAN CORPUSCULAR HEMOGLOBIN 29.2 pg (25-34); MEAN CORPUSCULAR HGB CONC 32.9 g/dl (32-36); MEAN PLATELET VOLUME 10.8 fL (7.4-10.4); MONO % 14.1 %; NEUT % 61.1 %; PLATELET COUNT 273 K/uL (130-400); WHITE BLOOD COUNT 7.07 K/uL (4.8-10.8)
--- NOTE | 2016-06-26 07:39 | Family Medicine Progress Note ---
Progress Note Date of Service Jun 26, 2016. Subjective Pt evaluation today including: conversation w/ patient, physical exam, chart review, lab review Pain: well controlled PO Intake: good Voiding: no voiding problems Doing better. denies fevers/chills. No CP/SOB. had a BM and had no active GI bleeding Constitutional: No chills, No fever Eyes: No worsening of vision ENT: No hearing loss Respiratory: No cough, No sputum Cardiovascular: No chest pain Abdomen: No GI bleeding, No nausea, No pain, No vomiting Musculoskeletal: No joint pain Female : No dysuria Neurologic: No memory loss Skin: + problem reported (LLE wound), + rash Medications Current Inpatient Medications Medications (Trade) Dose Ordered Sig/Jose Route Start Time Stop Time Status Last Admin Dose Admin Acetaminophen (Tylenol Tab) 650 mg Q4H PRN PO 06/24/16 17:00 07/24/16 16:59 06/25/16 04:16 650 MG Polyethylene (Miralax Powder Packet) 17 gm DAILY PRN PO 06/24/16 17:00 07/24/16 16:59 Ondansetron HCl (Zofran Inj) 4 mg Q6H PRN IV 06/24/16 17:00 07/24/16 16:59 Levothyroxine Sodium (Synthroid Tab) 150 mcg DAILYBB PO 06/25/16 06:00 07/25/16 05:59 06/26/16 05:41 150 MCG Pantoprazole Sodium (Protonix Tab) 40 mg DAILY PO 06/25/16 09:00 07/25/16 08:59 06/26/16 09:23 40 MG Pentoxifylline (Trental Tab) 400 mg TID PO 06/24/16 21:00 07/24/16 20:59 06/26/16 14:13 400 MG Simvastatin 40 mg 40 mg DAILY PO 06/25/16 09:00 07/25/16 08:59 06/26/16 09:23 40 MG Vancomycin HCl/ Sodium Chloride (Vancomycin Inj/ Nss 250ml) 270 ml @ 125 mls/hr DAILY@2200 IV 06/25/16 22:00 07/05/16 21:59 06/25/16 21:05 125 MLS/HR Vancomycin HCl (Consult) 1 ea UD PRN N/A 06/24/16 20:00 07/24/16 19:59 Piperacillin Sod/ Tazobactam Sod 1 ea 1 ea UD PRN N/A 06/24/16 20:00 07/24/16 19:59 Piperacillin Sod/ Tazobactam Sod/ Dextrose (Zosyn Iv/D5 100ml) 115 ml @ 28.75 mls/ hr Q8H IV 06/25/16 02:00 07/05/16 01:59 06/26/16 09:28 28.75 MLS/HR Oxycodone/ Acetaminophen (Percocet 5-325mg Tab) 1 tab Q4H PRN PO 06/25/16 02:30 07/09/16 02:29 06/25/16 02:41 1 TAB Polyethylene (Miralax Powder Packet) 17 gm DAILY@1500 PO 06/25/16 15:00 07/25/16 14:59 06/25/16 14:32 17 GM Objective Vital Signs Date Time Temp Pulse Resp B/P Pulse Ox O2 Delivery O2 Flow Rate FiO2 06/26/16 15:05 Room Air 06/26/16 14:48 37.0 87 19 117/55 98 Room Air 06/26/16 08:00 Room Air 06/26/16 07:50 36.8 75 16 102/57 97 Room Air 06/25/16 23:16 36.8 85 18 113/64 96 Room Air 06/25/16 19:48 Room Air Physical Exam General Appearance: WD/WN, no apparent distress Eyes: normal inspection ENT: normal ENT inspection, hearing grossly normal Neck: supple Respiratory/Chest: chest non-tender, lungs clear, normal breath sounds, no respiratory distress, no accessory muscle use Cardiovascular: regular rate, rhythm Abdomen: normal bowel sounds, non tender, soft Extremities: normal range of motion, + pertinent finding (LLe wound covered in dressing. ) Neurologic/Psychiatric: alert, normal mood/affect, oriented x 3 Skin: + pertinent finding (diffuse erythematous rash b/l thighs and arms) Laboratory Results 06/26/16 06:35 Red Blood Count 2.60, Mean Corpuscular Volume 88.8, Mean Corpuscular Hemoglobin 29.2, Mean Corpuscular Hemoglobin Concent 32.9, Mean Platelet Volume 10.8, Neutrophils (%) (Auto) 61.1, Lymphocytes (%) (Auto) 17.3, Monocytes (%) (Auto) 14.1, Eosinophils (%) (Auto) 6.9, Basophils (%) (Auto) 0.3, Neutrophils # (Auto ) 4.32, Lymphocytes # (Auto) 1.22, Monocytes # (Auto) 1.00, Eosinophils # (Auto ) 0.49, Basophils # (Auto) 0.02 06/26/16 06:35 Test 06/26/16 06:35 White Blood Count 7.07 K/uL (4.8-10.8) Red Blood Count 2.60 M/uL (4.2-5.4) Hemoglobin 7.6 g/dL (12.0-16.0) Hematocrit 23.1 % (37-47) Mean Corpuscular Volume 88.8 fL (80-100) Mean Corpuscular Hemoglobin 29.2 pg (25-34) Mean Corpuscular Hemoglobin Concent 32.9 g/dl (32-36) Platelet Count 273 K/uL (130-400) Mean Platelet Volume 10.8 fL (7.4-10.4) Neutrophils (%) (Auto) 61.1 % Lymphocytes (%) (Auto) 17.3 % Monocytes (%) (Auto) 14.1 % Eosinophils (%) (Auto) 6.9 % Basophils (%) (Auto) 0.3 % Neutrophils # (Auto) 4.32 K/uL (1.4-6.5) Lymphocytes # (Auto) 1.22 K/uL (1.2-3.4) Monocytes # (Auto) 1.00 K/uL (0.11-0.59) Eosinophils # (Auto) 0.49 K/uL (0-0.5) Basophils # (Auto) 0.02 K/uL (0-0.2) RDW Standard Deviation 58.2 fL (36.4-46.3) RDW Coefficient of Variation 17.9 % (11.5-14.5) Immature Granulocyte % (Auto) 0.3 % Immature Granulocyte # (Auto) 0.02 K/uL (0.00-0.02) Red Blood Cell Morphology Unremarkable Anion Gap 12.0 mmol/L (3-11) Est Creatinine Clear Calc Drug Dose 38.2 ml/min Estimated GFR () 49.4 Estimated GFR (Non- 42.7 BUN/Creatinine Ratio 12.0 (10-20) Calcium Level 7.8 mg/dl (8.5-10.1) Assessment and Plan 80 year old female with a history of CKD III, peripheral arterial disease and venous insufficiency with chronic L leg wounds, and AAA measuring 5.0 cm discharged on 06/23 after an admission with a rectal bleed and LOLA with chronic venous insufficiency and left sided ulcer here with left lower extremity cellulitis Left lower extremity Cellulitis with a pseudomonal ulcer : Chronic leg wounds secondary to venous insufficiency and peripheral arterial disease/lymphedema. - Wound culture 05/27 grew pseudomonas and patient was started on Levaquin by wound care - Patient used Levaquin for about 11 days and stopped with concerns of a rash from the drug and refused to be restarted on Levaquin and only wanted to see her Wound care doctor - Wound culture at wound care centre 06/24 - corynebacterium- ;likely skin contaminant - IV vancomycin and Zosyn - ID consult - appreciate input - Wound care consult Constipation: resolved - Miralax daily GI bleeding: likely sec to hemorrhoids - Hemoccult positive during last admission - C. difficile toxin assay negative last week - Colonoscopy/EGD declined by patient - H &H stable - Protonix 40 mg daily - Avoid aspirin Acute Blood Loss Anemia, secondary to rectal bleeding: no active bleeding currently - Hemoglobin of 9.3 at admission, today at 7.6, ,likely dilutional, Positive 2.5 L - Monitor H&H LOLA on background of CKD III - Cr back at 1.2 - Dc IVF - Continue to avoid nephrotoxins - Holding Cozaar, Lasix Hypernatremia: resolved - Na at 145 - switched to D5W, now dc Hypokalemia: K at 3.4: 40 meq KCL added Hypomagnesemia: Mg at 1.4 - Mgso4 2 Meq added Chronic back pain - Frequent repositioning; Heat packs; Tylenol PRN. - Patient needs continued PT/OT sessions Infrarenal AAA - This has been stable per pt, currently measuring 5.0 cm. 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 - continue pentoxifylline - will likely benefit from Vascular surgery consult as it it contributing to her wounds Failure to thrive/Weight loss - Pre-albumin WNL - Consult nutrition - Re-conditioning with PT/OT - Consider malignancy from GI source; cannot adequate evaluate at this time due to patient refusal DVT prophylaxis - No DVT prophylaxis due to concern for continued bleeding - SCD if patient can tolerate with chronic wound Code Status - Full code Disposition - Med/Surg Continued [facility] stay due to: other (wound care) Discharge planning: home Reviewed: Pt Seen/Exam by Me, MARC Notes, Labs History Resident Physician Supervision Note: I interviewed and examined the patient. Discussed with Dr. Hummel and agree with findings and plan as documented in the note. Any exceptions or clarifications are listed here: Pt feeling well. Had a BM and is afebrile, chris po. No CP/SOB Vitals reviewed NAD, obese RRR no mgr CTAB no wcr Abd soft NT ND +BS Ext- dressing not removed by me but RN to do later after dinner as per pt's request. Toes significantly less erythematous, leg edema much improved Skin: diffuse scaly erythematous maculopapular rash on arms, thighs, chest is improving A/P: 80 yo female with a h/o PAD, venous insufficiency, HTN, CKD III, GI bleeding and recent acute blood loss anemia, with chronic left leg wound, now with worsening cellulitis. Improving. COntinue daily dressing changes-pt agreeable to having RN do it through the weekend as Wound RN not here and not sure if Wound MD coming in. Zosyn and vanc as per ID COnsult Wound MD appreciated Hold lasix for acute kidney injury which is improved Hypernatremia improved on D5W--> stop fluids follow CBC and holding ASA due to recent GI bleed for which she declined all scopes or eval Documented By: Melissa Cruz
[2016-06-26 07:50] VITALS: BP 102/57; PULSE 75; TEMP 36.8; O2SAT 97
[2016-06-26 08:00] LABS: CALCIUM 7.8 mg/dl (8.5-10.1); CREATININE 1.2 mg/dl (0.60-1.20); POTASSIUM 3.4 mmol/L (3.5-5.1)
[2016-06-26 09:19] LABS: COMPLETE YES
[2016-06-26] MEDS: PANTOprazole SOD 40 MG TAB PO SCH (09:23)
[2016-06-26] MEDS: SIMVASTATIN 40 MG TAB PO SCH (09:23)
[2016-06-26] MEDS: PENTOXIFYLLINE 400MG EXT REL TAB PO SCH ×3 (09:23→21:50)
--- NOTE | 2016-06-26 10:28 | Infectious Disease Progress Nt ---
Progress Note Date of Service Jun 26, 2016. Subjective Pt evaluation today including: conversation w/ patient, physical exam, chart review, lab review, review of studies, review of inpatient medication list WBC count this morning is 7.07. Her Hgb is down to 7.6. Creatinine is 1.20. Culture from wound care is growing Corynebacterium only thus far. No new imaging. Patient states that she is having continued pain in the left lower extremity. She is also very chilled this morning. Under multiple blankets during my exam. All Other Systems: Reviewed and Negative Medications Current Inpatient Medications Medications (Trade) Dose Ordered Sig/Jose Route Start Time Stop Time Status Last Admin Dose Admin Acetaminophen (Tylenol Tab) 650 mg Q4H PRN PO 06/24/16 17:00 07/24/16 16:59 06/25/16 04:16 650 MG Polyethylene (Miralax Powder Packet) 17 gm DAILY PRN PO 06/24/16 17:00 07/24/16 16:59 Ondansetron HCl (Zofran Inj) 4 mg Q6H PRN IV 06/24/16 17:00 07/24/16 16:59 Levothyroxine Sodium (Synthroid Tab) 150 mcg DAILYBB PO 06/25/16 06:00 07/25/16 05:59 06/26/16 05:41 150 MCG Pantoprazole Sodium (Protonix Tab) 40 mg DAILY PO 06/25/16 09:00 07/25/16 08:59 06/26/16 09:23 40 MG Pentoxifylline (Trental Tab) 400 mg TID PO 06/24/16 21:00 07/24/16 20:59 06/26/16 09:23 400 MG Simvastatin 40 mg 40 mg DAILY PO 06/25/16 09:00 07/25/16 08:59 06/26/16 09:23 40 MG Vancomycin HCl/ Sodium Chloride (Vancomycin Inj/ Nss 250ml) 270 ml @ 125 mls/hr DAILY@2200 IV 06/25/16 22:00 07/05/16 21:59 06/25/16 21:05 125 MLS/HR Vancomycin HCl (Consult) 1 ea UD PRN N/A 06/24/16 20:00 07/24/16 19:59 Piperacillin Sod/ Tazobactam Sod 1 ea 1 ea UD PRN N/A 06/24/16 20:00 07/24/16 19:59 Piperacillin Sod/ Tazobactam Sod/ Dextrose (Zosyn Iv/D5 100ml) 115 ml @ 28.75 mls/ hr Q8H IV 06/25/16 02:00 07/05/16 01:59 06/26/16 09:28 28.75 MLS/HR Oxycodone/ Acetaminophen 1 tab 1 tab Q4H PRN PO 06/25/16 02:30 07/09/16 02:29 06/25/16 02:41 1 TAB Dextrose (D5W 1000ml) 1,000 ml @ 75 mls/hr [id number] IV 06/25/16 12:00 07/25/16 11:59 06/26/16 01:12 75 MLS/HR Polyethylene (Miralax Powder Packet) 17 gm DAILY@1500 PO 06/25/16 15:00 07/25/16 14:59 06/25/16 14:32 17 GM Objective Vital Signs Date Time Temp Pulse Resp B/P Pulse Ox O2 Delivery O2 Flow Rate FiO2 06/26/16 07:50 36.8 75 16 102/57 97 Room Air 06/25/16 23:16 36.8 85 18 113/64 96 Room Air 06/25/16 19:48 Room Air 06/25/16 16:00 96 Room Air 06/25/16 15:37 36.6 77 18 117/67 96 Room Air Physical Exam General Appearance: WD/WN, no apparent distress Eyes: normal inspection, sclerae normal ENT: hearing grossly normal Neck: supple, trachea midline Respiratory/Chest: chest non-tender, no respiratory distress, no accessory muscle use Cardiovascular: regular rate, rhythm Abdomen: normal bowel sounds Extremities: + pertinent finding (left lower extremity with large dressing in place. Appearing c/d/i, but was not removed during my exam.) Neurologic/Psychiatric: alert, normal mood/affect Skin: warm/dry, no rash Laboratory Results RUN DATE: 06/26/16 [facility] LAB PAGE 1 RUN TIME: 946 Specimen Inquiry PATIENT: KINGSLEY HARRIS LOC: [facility] U # : [id number] AGE/SX: 80/F ROOM: REG : 06/24/[address]: Carlos Altamirano DO : 1935 BED: DIS : 06/25/16 STATUS: DIS RCR TLOC: SPEC #: [id number] SHANIA: 06/24/16-UNK STATUS: RES REQ #: [id number] RECD: 06/24/[address]: Carlos Altamirano DO SOURCE: [facility]LCER ENTR: 06/24/[address] [facility] [address]: Aurelio Chew M.D. SPDESC: LEG LL ORDERED: SURF BAUTISTA CU/SMR Procedure Result Verified Site GRAM STAIN Final 06/25/16 RESULT NO WBCs SEEN, NO ORGANISMS SEEN SURFACE WOUND CULTURE Preliminary 06/26/16 Organism 1 CORYNEBACTERIUM SPECIES QUANITY RARE SENS NO SENSITIVITY TO FOLLOW Last 24 Hours Test 06/26/16 06:35 White Blood Count 7.07 K/uL Red Blood Count 2.60 M/uL Hemoglobin 7.6 g/dL Hematocrit 23.1 % Mean Corpuscular Volume 88.8 fL Mean Corpuscular Hemoglobin 29.2 pg Mean Corpuscular Hemoglobin Concent 32.9 g/dl Platelet Count 273 K/uL Mean Platelet Volume 10.8 fL Neutrophils (%) (Auto) 61.1 % Lymphocytes (%) (Auto) 17.3 % Monocytes (%) (Auto) 14.1 % Eosinophils (%) (Auto) 6.9 % Basophils (%) (Auto) 0.3 % Neutrophils # (Auto) 4.32 K/uL Lymphocytes # (Auto) 1.22 K/uL Monocytes # (Auto) 1.00 K/uL Eosinophils # (Auto) 0.49 K/uL Basophils # (Auto) 0.02 K/uL RDW Standard Deviation 58.2 fL RDW Coefficient of Variation 17.9 % Immature Granulocyte % (Auto) 0.3 % Immature Granulocyte # (Auto) 0.02 K/uL Red Blood Cell Morphology Unremarkable Sodium Level 145 mmol/L Potassium Level 3.4 mmol/L Chloride Level 114 mmol/L Carbon Dioxide Level 19 mmol/L Anion Gap 12.0 mmol/L Blood Urea Nitrogen 14 mg/dl Creatinine 1.20 mg/dl Est Creatinine Clear Calc Drug Dose 38.2 ml/min Estimated GFR () 49.4 Estimated GFR (Non- 42.7 BUN/Creatinine Ratio 12.0 Random Glucose 93 mg/dl Calcium Level 7.8 mg/dl Assessment and Plan Patient with severe weeping cellulitis of the left lower extremity. Most recent wound culture from wound care visit prior to admission is showing Corynebacterium only which is likely skin contamination. Patient has previously had Pseudomonas and MSSA from her LLE. She is currently on IV Vancomycin and Zosyn. Recommending continued broad spectrum IV abx therapy for now due to severity of cellulitis. Patient likely will still require multiple days of IV antibiotic therapy, but duration will depend on improvement. We will follow. Plan: 1. Continue IV abx PROVIDER ADDENDUM: Patient reviewed with Ms. Pate. Agree with above assessment.
[2016-06-26 14:48] VITALS: BP 117/55; PULSE 87; TEMP 37; O2SAT 98
[2016-06-26] MEDS: POLYETHYLENE (MIRALAX) 17 GM PACK PO SCH (15:00)
[2016-06-26] MEDS ORDERED: POTASSIUM CHLORIDE 20 MEQ TABCR PO STA (15:53)
[2016-06-26] MEDS: VANCOMYCIN INJ 1,000 MG in SODIUM CHLORIDE 0.9% 250ML 250 ML IV SCH (21:49)
[2016-06-26 23:30] VITALS: BP 99/59; PULSE 82; TEMP 37.1; O2SAT 94
[2016-06-27] MEDS: PIPERACILL/TAZOBAC IV 3.375 GM in DEXTROSE 5% 100ML IV SCH ×3 (01:54→18:05)
[2016-06-27] MEDS: ACETAMINOPHEN 325 MG TAB PO PRN ×2 (04:02→23:31)
[2016-06-27] MEDS: LEVOTHYROXINE 150 MCG TAB PO SCH (05:57)
[2016-06-27 07:16] LABS: HEMATOCRIT 23.9 % (37-47); MEAN CELL VOLUME 89.5 fL (80-100); MEAN CORPUSCULAR HEMOGLOBIN 29.2 pg (25-34); MEAN CORPUSCULAR HGB CONC 32.6 g/dl (32-36); MEAN PLATELET VOLUME 11.1 fL (7.4-10.4); PLATELET COUNT 268 K/uL (130-400); RED BLOOD COUNT 2.67 M/uL (4.2-5.4)
[2016-06-27 07:42] LABS: BUN/CREATININE RATIO 9.6 (10-20); CALCIUM 7.9 mg/dl (8.5-10.1); CREATININE 1.2 mg/dl (0.60-1.20); POTASSIUM 3.8 mmol/L (3.5-5.1)
[2016-06-27 07:56] VITALS: BP 108/66; PULSE 81; TEMP 36.6; O2SAT 96
[2016-06-27] MEDS: PANTOprazole SOD 40 MG TAB PO SCH (09:32)
[2016-06-27] MEDS: SIMVASTATIN 40 MG TAB PO SCH (09:32)
[2016-06-27] MEDS: PENTOXIFYLLINE 400MG EXT REL TAB PO SCH ×3 (09:33→21:53)
[2016-06-27] MEDS: POLYETHYLENE (MIRALAX) 17 GM PACK PO SCH (14:08)
[2016-06-27 15:40] VITALS: BP 107/53; PULSE 82; TEMP 36.9; O2SAT 94
[2016-06-27 16:30] VITALS: O2SAT 94
[2016-06-27] MEDS ORDERED: VANCOMYCIN TROUGH SCH (21:30)
[2016-06-27] MEDS: VANCOMYCIN INJ 1,000 MG in SODIUM CHLORIDE 0.9% 250ML 250 ML IV SCH (22:24)
--- NOTE | 2016-06-27 22:56 | Hospitalist Progress Note ---
Hospitalist Progress Note Date of Service Jun 27, 2016. Subjective Pt evaluation today including: conversation w/ patient, physical exam, chart review, lab review, review of inpatient medication list PO Intake: chris po Voiding: no voiding problems Had a BM, no GI bleeding. Afebrile, feeling good. Less pain in left leg since removed Tubigrip sleeve Constitutional: No fever Respiratory: No shortness of breath Cardiovascular: No chest pain Abdomen: No GI bleeding, No pain All Other Systems: Reviewed and Negative Objective Vital Signs Date Time Temp Pulse Resp B/P Pulse Ox O2 Delivery O2 Flow Rate FiO2 06/27/16 16:30 94 Room Air 06/27/16 15:40 36.9 82 18 107/53 94 Room Air 06/27/16 08:01 Room Air 06/27/16 07:56 36.6 81 16 108/66 96 Room Air 06/26/16 23:59 Room Air 06/26/16 23:30 37.1 82 18 99/59 94 Room Air Physical Exam General Appearance: WD/WN, no apparent distress Eyes: normal inspection, sclerae normal Neck: trachea midline Respiratory/Chest: lungs clear, normal breath sounds, no respiratory distress, no accessory muscle use Cardiovascular: regular rate, rhythm, no gallop, no murmur Abdomen: normal bowel sounds, non tender, soft Extremities: + pertinent finding (left leg with dressing in place without drainage, left foot appears much less erythematous and diffuse sloughing of crusted skin from foot) Skin: + rash (diffuse scaly pinkish maculopapular rash on extremities) Laboratory Results Last 24 Hours Test 06/27/16 06:15 06/27/16 21:55 White Blood Count 7.60 K/uL Red Blood Count 2.67 M/uL Hemoglobin 7.8 g/dL Hematocrit 23.9 % Mean Corpuscular Volume 89.5 fL Mean Corpuscular Hemoglobin 29.2 pg Mean Corpuscular Hemoglobin Concent 32.6 g/dl RDW Standard Deviation 59.2 fL RDW Coefficient of Variation 18.4 % Platelet Count 268 K/uL Mean Platelet Volume 11.1 fL Sodium Level 149 mmol/L Potassium Level 3.8 mmol/L Chloride Level 118 mmol/L Carbon Dioxide Level 21 mmol/L Anion Gap 10.0 mmol/L Blood Urea Nitrogen 12 mg/dl Creatinine 1.20 mg/dl Est Creatinine Clear Calc Drug Dose 38.2 ml/min Estimated GFR () 49.4 Estimated GFR (Non- 42.7 BUN/Creatinine Ratio 9.6 Random Glucose 97 mg/dl Calcium Level 7.9 mg/dl Assessment and Plan 80 year old female with a history of CKD III, peripheral arterial disease and venous insufficiency with chronic L leg wounds, and AAA measuring 5.0 cm discharged on 06/23 after an admission with a rectal bleed and LOLA with chronic venous insufficiency and left sided ulcer here with worsening left lower extremity cellulitis Left lower extremity Cellulitis with ulcerations Chronic leg wounds secondary to venous insufficiency and peripheral arterial disease/lymphedema. - Wound culture 05/27 grew pseudomonas and patient was started on Levaquin by wound care - Patient used Levaquin for about 12 days and then admitted with LOLA (procurement director 5) and GI bleeding last admission which she blamed on constipation from the Levaquin causing hemorrhoidal bleeding. She refused to be restarted on Levaquin and only wanted to see her Wound care doctor - Wound culture at wound care centre 06/24 - corynebacterium- ;likely skin contaminant - IV vancomycin and Zosyn to be continued for now and may need PICC line if needs to continue on tx for Pseudomonas given intolerance to Levaquin - ID consult - appreciate input - Wound care consult appreciated -continue daily dressing changes Constipation: resolved - Miralax daily H/O GI bleeding: possibly sec to hemorrhoids - Hemoccult positive during last admission - C. difficile toxin assay negative last week - Colonoscopy/EGD declined by patient - H &H stable but low at 7.8 - Protonix 40 mg daily - Avoid aspirin for now -refusing Fe supplementation LOLA on background of CKD III - Cr back at 1.2 - Dc'd IVF - Continue to avoid nephrotoxins - Holding Cozaar, Lasix Hypernatremia: - Na at 145 after D5W, now back at 149 after stopping D5W--> review of record shows chronic high normal to high Na+ level - check AM cortisol to look for adrenal insufficiency s cause of hypernatremia -continue to encourage free water intake Hypokalemia/Hypomagnesemia: resolved -follow PRP Chronic back pain - Frequent repositioning; Heat packs; Tylenol PRN. - Patient needs continued PT/OT sessions Infrarenal AAA, PAD - AAA has been stable, currently measuring 5.0 cm. 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
[2016-06-27 23:06] VITALS: BP 104/60; PULSE 82; TEMP 36.9; O2SAT 94
[2016-06-28] MEDS: PIPERACILL/TAZOBAC IV 3.375 GM in DEXTROSE 5% 100ML IV SCH ×3 (02:06→18:01)
[2016-06-28] MEDS: LEVOTHYROXINE 150 MCG TAB PO SCH (05:28)
[2016-06-28 07:35] VITALS: BP 132/69; PULSE 76; TEMP 36.7; O2SAT 96
[2016-06-28 07:55] LABS: BASO % 0.5 %; BASO ABS # 0.03 K/uL (0-0.2); EOS % 6.4 %; HEMATOCRIT 24.1 % (37-47); IG% 0.2 %; LYMPH % 19.6 %; LYMPH ABS # 1.23 K/uL (1.2-3.4); MEAN CELL VOLUME 91.3 fL (80-100); MEAN CORPUSCULAR HEMOGLOBIN 29.2 pg (25-34); MEAN PLATELET VOLUME 10.2 fL (7.4-10.4); MONO % 15.2 %; NEUT % 58.1 %; PLATELET COUNT 301 K/uL (130-400); RED BLOOD COUNT 2.64 M/uL (4.2-5.4); WHITE BLOOD COUNT 6.27 K/uL (4.8-10.8)
[2016-06-28 08:16] LABS: COMPLETE YES
[2016-06-28 08:24] LABS: BUN/CREATININE RATIO 9.5 (10-20); CALCIUM 8.2 mg/dl (8.5-10.1); CREATININE 1.1 mg/dl (0.60-1.20); MAGNESIUM 1.8 mg/dl (1.8-2.4); POTASSIUM 3.8 mmol/L (3.5-5.1)
[2016-06-28] MEDS: PANTOprazole SOD 40 MG TAB PO SCH (09:29)
[2016-06-28] MEDS: SIMVASTATIN 40 MG TAB PO SCH (09:29)
[2016-06-28] MEDS: PENTOXIFYLLINE 400MG EXT REL TAB PO SCH ×3 (09:29→22:31)
[2016-06-28] MEDS: POLYETHYLENE (MIRALAX) 17 GM PACK PO SCH (13:12)
[2016-06-28] MEDS: DEXTROSE 5% 1000ML 1,000 ML IV SCH ×2 (13:49→23:12)
[2016-06-28 15:30] VITALS: BP 88/44; PULSE 81; TEMP 37; O2SAT 96
[2016-06-28 15:31] VITALS: BP 116/65
--- NOTE | 2016-06-28 16:24 | Nephrology Consultation ---
Nephrology Consultation Date & Providers Date of Consultation: Jun 28, 2016. Primary Care Provider: Aurelio Chew M.D. Referring Provider: Reason for Consultation Hypernatremia History of Present Illness Mrs. Denisa Faust is a morbidly obese 80-year-old female with chronic kidney disease, peripheral arterial disease, venous insufficiency and chronic left lower extremity wound. She was admitted to [facility] from June 17 to with a GI bleed. She refuse colonoscopy and upper endoscopy. She had acute renal failure during her admission and was attributed to that prerenal azotemia andacute tubular necrosis creatinine had returned to baseline at the time of discharge. She has been maintained on chronic antibiotic therapy for a wound on her left lower extremity. Previous culture grown Pseudomonas at the end of May. She had been maintained on Levaquin by her primary care physician. However this was stopped after several days due to concerns for drug rash. Today after hospital discharge she [facility] and was sent to the hospital for readmission due to concern for infection of the lower extremity wound. Was notable that the patient was hyperglycemic upon presentation. The patient and her daughter reported that they felt this was related to the aggressive volume replacement of normal saline she had received during a prior hospitalization. She admits that due to urinary frequency and urgency she does restrict her free water intake. The while she has been in the hospital she has been trying to maintain appropriate level of hydration. She acknowledged her recent acute kidney injury and concerns for worsening kidney function. She had no other specific acute urinary complaints. Overall she feels her volume status is appropriate. She is not having any fevers or chills. She denied diarrhea or significant GI symptoms. Past Medical/Surgical History Medical: Morbid obesity, peripheral vascular disease, venous insufficiency, hypertension , abdominal aortic aneurysm, recent GI bleed, chronic lower extremity wound, recent acute kidney injury. Surgical: None reported Allergies Coded Allergies: Erythromycin (Verified Allergy, Intermediate, RASH, 06/17/16) Iodinated Diagnostic Agents (Verified Allergy, Intermediate, RASH, 06/17/16 ) Latex1 -Allergic Contact Dermititis (Verified Allergy, Mild, RASH, 06/17/16 ) Uncoded Allergies: ALL "RUBEN" (Allergy, Unknown, UNKNOWN, 11/13/08) Inpatient Medications Current Inpatient Medications Medications (Trade) Dose Ordered Sig/Jose Route Start Time Stop Time Status Last Admin Dose Admin Acetaminophen (Tylenol Tab) 650 mg Q4H PRN PO 06/24/16 17:00 07/24/16 16:59 06/27/16 23:31 650 MG Polyethylene (Miralax Powder Packet) 17 gm DAILY PRN PO 06/24/16 17:00 07/24/16 16:59 Ondansetron HCl (Zofran Inj) 4 mg Q6H PRN IV 06/24/16 17:00 07/24/16 16:59 Levothyroxine Sodium (Synthroid Tab) 150 mcg DAILYBB PO 06/25/16 06:00 07/25/16 05:59 06/28/16 05:28 150 MCG Pantoprazole Sodium (Protonix Tab) 40 mg DAILY PO 06/25/16 09:00 07/25/16 08:59 06/28/16 09:29 40 MG Pentoxifylline (Trental Tab) 400 mg TID PO 06/24/16 21:00 07/24/16 20:59 06/28/16 13:49 400 MG Simvastatin (Zocor Tab) 40 mg DAILY PO 06/25/16 09:00 07/25/16 08:59 06/28/16 09:29 40 MG Vancomycin HCl (Consult) 1 ea UD PRN N/A 06/24/16 20:00 07/24/16 19:59 Piperacillin Sod/ Tazobactam Sod 1 ea 1 ea UD PRN N/A 06/24/16 20:00 07/24/16 19:59 Piperacillin Sod/ Tazobactam Sod/ Dextrose (Zosyn Iv/D5 100ml) 115 ml @ 28.75 mls/ hr Q8H IV 06/25/16 02:00 07/05/16 01:59 06/28/16 09:29 28.75 MLS/HR Oxycodone/ Acetaminophen (Percocet 5-325mg Tab) 1 tab Q4H PRN PO 06/25/16 02:30 07/09/16 02:29 06/25/16 02:41 1 TAB Polyethylene 17 gm 17 gm DAILY@1500 PO 06/25/16 15:00 07/25/16 14:59 06/25/16 14:32 17 GM Vancomycin HCl 900 mg/Sodium Chloride 268 ml @ 125 mls/hr DAILY@2200 IV 06/28/16 22:00 07/08/16 21:59 Dextrose (D5W 1000ml) 1,000 ml @ 75 mls/hr [id number] IV 06/28/16 13:30 07/28/16 13:29 06/28/16 13:49 75 MLS/HR Family History Patient reports no known family medical history. Social History Smoking Status: Former Smoker Drug Use: none Marital Status: Housing Status: lives with family Occupation: retired Review of Systems A complete review of systems was performed. Pertinent positives are noted above. All other systems are negative. Physical Exam Date Time Temp Pulse Resp B/P Pulse Ox O2 Delivery O2 Flow Rate FiO2 06/28/16 15:31 116/65 06/28/16 15:30 37.0 81 16 88/44 96 Room Air 06/28/16 08:36 Room Air 06/28/16 07:35 36.7 76 18 132/69 96 Room Air 06/27/16 23:30 Room Air 06/27/16 23:06 36.9 82 16 104/60 94 Room Air 06/27/16 16:30 94 Room Air General Appearance: no apparent distress, + obese Head: normocephalic, atraumatic Eyes: normal inspection, sclerae normal ENT: normal ENT inspection, pharynx normal Neck: supple, no JVD Respiratory/Chest: lungs clear, no respiratory distress, no accessory muscle use Cardiovascular: regular rate, rhythm, no gallop Abdomen/GI: non tender, soft Extremities/Musculoskelatal: normal inspection, + pedal edema, + pertinent finding (Wound without significant drainage) Neurologic/Psych: alert, oriented x 3 Skin: normal color Laboratory Results Last 24 Hours Test 06/27/16 21:55 06/28/16 07:45 Vancomycin Level Trough 15.1 mcg/ml White Blood Count 6.27 K/uL Red Blood Count 2.64 M/uL Hemoglobin 7.7 g/dL Hematocrit 24.1 % Mean Corpuscular Volume 91.3 fL Mean Corpuscular Hemoglobin 29.2 pg Mean Corpuscular Hemoglobin Concent 32.0 g/dl Platelet Count 301 K/uL Mean Platelet Volume 10.2 fL Neutrophils (%) (Auto) 58.1 % Lymphocytes (%) (Auto) 19.6 % Monocytes (%) (Auto) 15.2 % Eosinophils (%) (Auto) 6.4 % Basophils (%) (Auto) 0.5 % Neutrophils # (Auto) 3.65 K/uL Lymphocytes # (Auto) 1.23 K/uL Monocytes # (Auto) 0.95 K/uL Eosinophils # (Auto) 0.40 K/uL Basophils # (Auto) 0.03 K/uL RDW Standard Deviation 61.7 fL RDW Coefficient of Variation 18.7 % Immature Granulocyte % (Auto) 0.2 % Immature Granulocyte # (Auto) 0.01 K/uL Red Blood Cell Morphology Unremarkable Sodium Level 151 mmol/L Potassium Level 3.8 mmol/L Chloride Level 120 mmol/L Carbon Dioxide Level 21 mmol/L Anion Gap 10.0 mmol/L Blood Urea Nitrogen 10 mg/dl Creatinine 1.10 mg/dl Est Creatinine Clear Calc Drug Dose 41.7 ml/min Estimated GFR () 54.9 Estimated GFR (Non- 47.4 BUN/Creatinine Ratio 9.5 Random Glucose 89 mg/dl Calcium Level 8.2 mg/dl Magnesium Level 1.8 mg/dl Cortisol AM Sample 12.29 mcg/dl Impression (1) Hypernatremia (2) Cellulitis of left lower extremity (3) Acute kidney injury Mrs. Denisa Faust is a morbidly obese 80-year-old female with peripheral arterial disease, venous insufficiency, hypertension who was recently admitted to [facility] with GI bleeding and acute renal insufficiency. LOLA has been resolving. GI bleed stabilized. Patient refused colonoscopy or upper endoscopy. She has been readmitted with infection with a chronic right lower extremity wound. Hospitalization complicated by a persistent hypernatremia. Her free water deficit did improve with IV D5W. However serum sodium started to rise after the infusion was stopped. The patient does not endorse any anorexia or GI symptoms. She denies diarrhea specifically. She is able to drink fluids without restriction.however due to urinary urgency and chronic frequency she does often restrict her fluid intake. IV free water has been restarted chief added to increase to 125 milliliters/hour. I would continue diffuse infusion overnight. Will check random urine osmolality note seems unlikely that she would develop any diabetes insipidus notably given to her documented urine output. Repeat renal profile tomorrow AM. Interestingly, with a serum sodium of 151 she does not endorse significant thirst. Recommendations -- D5W @ 125 ml/hr -- Patient provided with mug of cold water to keep at the bedside -- Check urine osmolality -- Document I/O -- Check renal profile tonight and tomorrow AM
[2016-06-28 16:30] VITALS: O2SAT 96
--- NOTE | 2016-06-28 18:15 | Hospitalist Progress Note ---
Hospitalist Progress Note Date of Service Jun 28, 2016. Subjective Pt evaluation today including: conversation w/ patient, conversation w/ family , physical exam, chart review, lab review, review of studies, conversation w/ [employer] consultant (Nephrology), review of inpatient medication list PO Intake: chris po Voiding: no voiding problems Afebrile. Pt feels well. Was OOB to chair and waked around the room with PT today. Dressing has not yet been changed today and is cracked and bleeding a bit. Constitutional: No fever Respiratory: No shortness of breath Cardiovascular: No chest pain Abdomen: No constipation, No diarrhea, No pain Skin: + rash (but is improving) Objective Vital Signs Date Time Temp Pulse Resp B/P Pulse Ox O2 Delivery O2 Flow Rate FiO2 06/28/16 15:31 116/65 06/28/16 15:30 37.0 81 16 88/44 96 Room Air 06/28/16 08:36 Room Air 06/28/16 07:35 36.7 76 18 132/69 96 Room Air 06/27/16 23:30 Room Air 06/27/16 23:06 36.9 82 16 104/60 94 Room Air Physical Exam General Appearance: WD/WN, no apparent distress Eyes: normal inspection, sclerae normal ENT: hearing grossly normal Neck: trachea midline Respiratory/Chest: lungs clear, normal breath sounds, no respiratory distress, no accessory muscle use Cardiovascular: regular rate, rhythm, no gallop, no murmur Abdomen: normal bowel sounds, non tender, soft (and obese) Extremities: + pertinent finding (left leg and foot with dressing in place but dressing saturated with serous fluid, forefoot and toes with diffuse scaly and sloughing skin with cracks and dried blood, erythema previously present is now absent, dressing not removed) Neurologic/Psychiatric: alert, normal mood/affect, oriented x 3 Skin: + rash (anterior thighs, arms with improving pink very scaly rash) Laboratory Results Last 24 Hours Test 06/27/16 21:55 06/28/16 07:45 Vancomycin Level Trough 15.1 mcg/ml White Blood Count 6.27 K/uL Red Blood Count 2.64 M/uL Hemoglobin 7.7 g/dL Hematocrit 24.1 % Mean Corpuscular Volume 91.3 fL Mean Corpuscular Hemoglobin 29.2 pg Mean Corpuscular Hemoglobin Concent 32.0 g/dl Platelet Count 301 K/uL Mean Platelet Volume 10.2 fL Neutrophils (%) (Auto) 58.1 % Lymphocytes (%) (Auto) 19.6 % Monocytes (%) (Auto) 15.2 % Eosinophils (%) (Auto) 6.4 % Basophils (%) (Auto) 0.5 % Neutrophils # (Auto) 3.65 K/uL Lymphocytes # (Auto) 1.23 K/uL Monocytes # (Auto) 0.95 K/uL Eosinophils # (Auto) 0.40 K/uL Basophils # (Auto) 0.03 K/uL RDW Standard Deviation 61.7 fL RDW Coefficient of Variation 18.7 % Immature Granulocyte % (Auto) 0.2 % Immature Granulocyte # (Auto) 0.01 K/uL Red Blood Cell Morphology Unremarkable Sodium Level 151 mmol/L Potassium Level 3.8 mmol/L Chloride Level 120 mmol/L Carbon Dioxide Level 21 mmol/L Anion Gap 10.0 mmol/L Blood Urea Nitrogen 10 mg/dl Creatinine 1.10 mg/dl Est Creatinine Clear Calc Drug Dose 41.7 ml/min Estimated GFR () 54.9 Estimated GFR (Non- 47.4 BUN/Creatinine Ratio 9.5 Random Glucose 89 mg/dl Calcium Level 8.2 mg/dl Magnesium Level 1.8 mg/dl Cortisol AM Sample 12.29 mcg/dl Assessment and Plan 80 year old female with a history of CKD III, peripheral arterial disease and venous insufficiency with chronic L leg wounds, and AAA measuring 5.0 cm discharged on 06/23 after an admission with a rectal bleed and LOLA with chronic venous insufficiency and left sided ulcer here with worsening left lower extremity cellulitis. Left lower extremity Cellulitis with ulcerations Chronic leg wounds secondary to venous insufficiency and peripheral arterial disease/lymphedema. - Wound culture 05/27 grew pseudomonas and patient was started on Levaquin by wound care - Patient used Levaquin for about 12 days and then admitted with LOLA (parks and recreation worker 5) and GI bleeding last admission which she blamed on constipation from the Levaquin causing hemorrhoidal bleeding. She refused to be restarted on Levaquin and only wanted to see her Wound care doctor for management, also adamant to go home to see her who was home from [facility] facility. [facility] the next day, had significantly worsening cellulitis and directly admitted here. - Wound culture at wound care centre 06/24 - corynebacterium- ;likely skin contaminant - IV vancomycin and Zosyn to be continued for now and may need PICC line if needs to continue on tx for Pseudomonas given intolerance to Levaquin - ID consult - appreciate input - Wound care consult appreciated -continue daily dressing changes Constipation: resolved - Miralax daily H/O GI bleeding: possibly sec to hemorrhoids - Hemoccult positive during last admission - C. difficile toxin assay negative last week - Colonoscopy/EGD declined by patient - H &H stable but low at 7.7 - Protonix 40 mg daily - Avoid aspirin for now -refusing Fe supplementation LOLA on background of CKD III- parks and recreation worker 1.6 this admission (was 5.2 last week upon admission) - Cr back at 1.1 after IVFs and holding lasix (has been off cozaar since previous admission) - Continue to avoid nephrotoxins Hypernatremia: - Na at 145 after D5W, now back at 149 after stopping D5W--> 151 today; review of record shows chronic high normal to high Na+ level - check AM cortisol to look for adrenal insufficiency s cause of hypernatremia-- > normal at 12 -continue to encourage free water intake -restart D5W at 125 ml/hr -Consult to Nephro appreciated -check Ur Osm and UA Hypokalemia/Hypomagnesemia: resolved -follow PRP Chronic back pain - Frequent repositioning; Heat packs; Tylenol PRN. - Patient needs continued PT/OT sessions Infrarenal AAA, PAD - AAA has been stable, currently measuring 5.0 cm. 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
[2016-06-28 20:40] LABS: CALCIUM 8.1 mg/dl (8.5-10.1); CREATININE 1.2 mg/dl (0.60-1.20); POTASSIUM 3.6 mmol/L (3.5-5.1)
[2016-06-28] MEDS: VANCOMYCIN INJ 900 MG in SODIUM CHLORIDE 0.9% 250ML 250 ML IV SCH (22:30)
[2016-06-28 23:11] VITALS: BP 118/62; PULSE 83; TEMP 37.1; O2SAT 93
[2016-06-28] MEDS: ACETAMINOPHEN 325 MG TAB PO PRN (23:31)
[2016-06-29] MEDS: PIPERACILL/TAZOBAC IV 3.375 GM in DEXTROSE 5% 100ML IV SCH ×3 (02:03→17:31)
[2016-06-29 05:54] LABS: BASO % 0.5 %; BASO ABS # 0.04 K/uL (0-0.2); EOS % 7.2 %; IG% 0.3 %; LYMPH % 20.4 %; LYMPH ABS # 1.59 K/uL (1.2-3.4); MEAN CELL VOLUME 91.2 fL (80-100); MEAN CORPUSCULAR HEMOGLOBIN 29.2 pg (25-34); MEAN PLATELET VOLUME 10.2 fL (7.4-10.4); MONO % 14.5 %; NEUT % 57.1 %; PLATELET COUNT 308 K/uL (130-400); RED BLOOD COUNT 2.74 M/uL (4.2-5.4); WHITE BLOOD COUNT 7.78 K/uL (4.8-10.8)
[2016-06-29] MEDS: LEVOTHYROXINE 150 MCG TAB PO SCH (05:55)
[2016-06-29] MEDS: DEXTROSE 5% 1000ML 1,000 ML IV SCH ×3 (05:56→21:59)
[2016-06-29 06:31] LABS: COMPLETE YES
[2016-06-29 06:32] LABS: BUN/CREATININE RATIO 8.1 (10-20); CALCIUM 8.1 mg/dl (8.5-10.1); CREATININE 1.1 mg/dl (0.60-1.20); PHOSPHORUS 2.7 mg/dl (2.5-4.9); POTASSIUM 3.4 mmol/L (3.5-5.1)
[2016-06-29] MEDS ORDERED: POTASSIUM CHLORIDE 10 MEQ TABCR PO STA (07:32)
[2016-06-29 07:52] VITALS: BP 136/66; PULSE 85; TEMP 36.6; O2SAT 95
[2016-06-29] MEDS: SIMVASTATIN 40 MG TAB PO SCH (09:41)
[2016-06-29] MEDS: PANTOprazole SOD 40 MG TAB PO SCH (09:41)
[2016-06-29] MEDS: PENTOXIFYLLINE 400MG EXT REL TAB PO SCH ×3 (09:41→20:52)
--- NOTE | 2016-06-29 10:43 | Infectious Disease Progress Nt ---
Progress Note Date of Service Jun 29, 2016. Subjective Pt evaluation today including: conversation w/ patient, physical exam, chart review, lab review, review of studies, conversation w/ decorating consultant (Dr. Martinez), review of inpatient medication list Patient is feeling well this morning. She feels that she should continue on current therapy due to improvement in her left leg but not completely better. She has had her dressing changed, but the gauze between her toes has not been changed she says. She is having frequent, soft bowel movements but no watery diarrhea or foul odor. She continues to have pain in the left toes and lower extremity, but it is slightly improved. She is trying to increased fluid consumption, and therefore is having some urinary frequency but no other associated symptoms. All Other Systems: Reviewed and Negative Medications Current Inpatient Medications Medications (Trade) Dose Ordered Sig/Jose Route Start Time Stop Time Status Last Admin Dose Admin Acetaminophen (Tylenol Tab) 650 mg Q4H PRN PO 06/24/16 17:00 07/24/16 16:59 06/28/16 23:31 650 MG Polyethylene (Miralax Powder Packet) 17 gm DAILY PRN PO 06/24/16 17:00 07/24/16 16:59 Ondansetron HCl (Zofran Inj) 4 mg Q6H PRN IV 06/24/16 17:00 07/24/16 16:59 Levothyroxine Sodium (Synthroid Tab) 150 mcg DAILYBB PO 06/25/16 06:00 07/25/16 05:59 06/29/16 05:55 150 MCG Pantoprazole Sodium (Protonix Tab) 40 mg DAILY PO 06/25/16 09:00 07/25/16 08:59 06/29/16 09:41 40 MG Pentoxifylline (Trental Tab) 400 mg TID PO 06/24/16 21:00 07/24/16 20:59 06/29/16 09:41 400 MG Simvastatin (Zocor Tab) 40 mg DAILY PO 06/25/16 09:00 07/25/16 08:59 06/29/16 09:41 40 MG Vancomycin HCl (Consult) 1 ea UD PRN N/A 06/24/16 20:00 07/24/16 19:59 Piperacillin Sod/ Tazobactam Sod 1 ea 1 ea UD PRN N/A 06/24/16 20:00 07/24/16 19:59 Piperacillin Sod/ Tazobactam Sod/ Dextrose (Zosyn Iv/D5 100ml) 115 ml @ 28.75 mls/ hr Q8H IV 06/25/16 02:00 07/05/16 01:59 06/29/16 09:59 28.75 MLS/HR Oxycodone/ Acetaminophen (Percocet 5-325mg Tab) 1 tab Q4H PRN PO 06/25/16 02:30 07/09/16 02:29 06/25/16 02:41 1 TAB Polyethylene 17 gm 17 gm DAILY@1500 PO 06/25/16 15:00 07/25/16 14:59 06/25/16 14:32 17 GM Vancomycin HCl 900 mg/Sodium Chloride 268 ml @ 125 mls/hr DAILY@2200 IV 06/28/16 22:00 07/08/16 21:59 06/28/16 22:30 125 MLS/HR Dextrose (D5W 1000ml) 1,000 ml @ 125 mls/hr Q8H IV 06/28/16 13:30 06/29/16 05:56 125 MLS/HR Objective Vital Signs Date Time Temp Pulse Resp B/P Pulse Ox O2 Delivery O2 Flow Rate FiO2 06/29/16 07:52 36.6 85 18 136/66 95 Room Air 06/28/16 23:38 Room Air 06/28/16 23:11 37.1 83 16 118/62 93 Room Air 06/28/16 16:30 96 Room Air 06/28/16 15:31 116/65 06/28/16 15:30 37.0 81 16 88/44 96 Room Air Physical Exam General Appearance: no apparent distress, + obese Eyes: normal inspection, sclerae normal ENT: hearing grossly normal Neck: supple, trachea midline Respiratory/Chest: no respiratory distress, no accessory muscle use Cardiovascular: regular rate, rhythm Extremities: + pertinent finding (Edema and tenderness of the left foot and lower extremity. Right lower extremity with mild edema as well.) Neurologic/Psychiatric: alert, normal mood/affect Skin: warm/dry, + pertinent finding (Copious flaking skin of the left lower extremity with continued crusting/eschar of the toes and very mild erythema as well. Continued mild erythema of the right mid lower extremity. No continued weeping. Mild drainage from left lateral upper leg and medial ankle) Laboratory Results Last 24 Hours Test 06/28/16 20:13 06/29/16 05:35 Sodium Level 150 mmol/L 148 mmol/L Potassium Level 3.6 mmol/L 3.4 mmol/L Chloride Level 118 mmol/L 116 mmol/L Carbon Dioxide Level 20 mmol/L 20 mmol/L Anion Gap 12.0 mmol/L 12.0 mmol/L Blood Urea Nitrogen 11 mg/dl 9 mg/dl Creatinine 1.20 mg/dl 1.10 mg/dl Est Creatinine Clear Calc Drug Dose 38.2 ml/min 41.7 ml/min Estimated GFR () 49.4 54.9 Estimated GFR (Non- 42.7 47.4 BUN/Creatinine Ratio 9.0 8.1 Random Glucose 120 mg/dl 107 mg/dl Calcium Level 8.1 mg/dl 8.1 mg/dl White Blood Count 7.78 K/uL Red Blood Count 2.74 M/uL Hemoglobin 8.0 g/dL Hematocrit 25.0 % Mean Corpuscular Volume 91.2 fL Mean Corpuscular Hemoglobin 29.2 pg Mean Corpuscular Hemoglobin Concent 32.0 g/dl Platelet Count 308 K/uL Mean Platelet Volume 10.2 fL Neutrophils (%) (Auto) 57.1 % Lymphocytes (%) (Auto) 20.4 % Monocytes (%) (Auto) 14.5 % Eosinophils (%) (Auto) 7.2 % Basophils (%) (Auto) 0.5 % Neutrophils # (Auto) 4.44 K/uL Lymphocytes # (Auto) 1.59 K/uL Monocytes # (Auto) 1.13 K/uL Eosinophils # (Auto) 0.56 K/uL Basophils # (Auto) 0.04 K/uL RDW Standard Deviation 61.6 fL RDW Coefficient of Variation 18.8 % Immature Granulocyte % (Auto) 0.3 % Immature Granulocyte # (Auto) 0.02 K/uL Red Blood Cell Morphology Unremarkable Phosphorus Level 2.7 mg/dl Albumin 1.9 gm/dl Assessment and Plan Patient with severe weeping cellulitis of the left lower extremity. Now slightly improved with continued peeling skin, erythema, and tenderness. Most recent wound culture from wound care visit prior to admission is showing Corynebacterium only which is likely skin contamination. Patient has previously had Pseudomonas and MSSA from her LLE. She is currently on IV Vancomycin and Zosyn. Patient likely will need continued IV abx therapy for at least 1-2 more days. Will continue current therapy since she is tolerating this well. Ideally, will change to PO Cipro and Keflex prior to discharge. She previously did not tolerate Levaquin well and refuses to get this medication, but feels she has tolerated Cipro in the past. If she does not tolerate Cipro orally, will need to consider rehab placement for continued IV therapy. We will continue to follow this patient. Plan: 1. Continue current abx therapy x 1-2 more days 2. Hopefully transition to PO Cipro and Keflex over next couple days PROVIDER ADDENDUM: Patient reviewed with Ms. Pate. Agree with above assessment.
[2016-06-29 12:54] LABS: URINE APPEARANCE CLEAR (CLEAR); URINE BILIRUBIN NEG (NEG); URINE COLOR YELLOW; URINE NITRITE NEG (NEG); URINE PH 5.5 (4.5-7.5); UROBILINOGEN NEG (NEG)
[2016-06-29 13:09] LABS: MANUAL MICROSCOPIC REQUIRED? NO; REVIEW REQ? NO
[2016-06-29] MEDS: POLYETHYLENE (MIRALAX) 17 GM PACK PO SCH (14:05)
--- NOTE | 2016-06-29 14:11 | Family Medicine Progress Note ---
Progress Note Date of Service Jun 29, 2016. Subjective Pt evaluation today including: conversation w/ patient, physical exam, chart review, lab review, conversation w/ product management consultant Pain: 0/10 PO Intake: WNL Voiding: no voiding problems Patient states she feels like her LE cellulitis is improving We discussed discharge and expectations and she is unable to go to a facility for IV antibiotics nor is she willing to have a PICC placed she notes she has a that is unwell and would prefer him not to see her getting treatments We also had a long discussion about the R/B/A of DVT prophylaxis and patient is agreeable Constitutional: No fever Eyes: No worsening of vision ENT: No hearing loss Respiratory: No cough, No dyspnea on exertion, No shortness of breath, No sputum, No wheezing Cardiovascular: No chest pain Abdomen: No constipation, No diarrhea, No nausea, No pain, No vomiting Musculoskeletal: + calf pain, No joint pain Neurologic: + balance problems, No memory loss, No numbness/tingling, No paralysis, No weakness Psychiatric: No depression symptoms Endo: No fatigue Skin: No new/changing skin lesions, No rash Medications Medications Administered Medications (Trade) Dose Ordered Sig/Jose Route Start Time Stop Time Status Last Admin Dose Admin Acetaminophen (Tylenol Tab) 650 mg Q4H PRN PO 06/24/16 17:00 07/24/16 16:59 06/28/16 23:31 650 MG Levothyroxine Sodium (Synthroid Tab) 150 mcg DAILYBB PO 06/25/16 06:00 07/25/16 05:59 06/29/16 05:55 150 MCG Pantoprazole Sodium (Protonix Tab) 40 mg DAILY PO 06/25/16 09:00 07/25/16 08:59 06/29/16 09:41 40 MG Pentoxifylline (Trental Tab) 400 mg TID PO 06/24/16 21:00 07/24/16 20:59 06/29/16 09:41 400 MG Simvastatin 40 mg 40 mg DAILY PO 06/25/16 09:00 07/25/16 08:59 06/29/16 09:41 40 MG Sodium Chloride 1,000 ml @ 75 mls/hr [id number] IV 06/24/16 19:30 06/25/16 11:34 DC 06/25/16 08:56 75 MLS/HR Vancomycin HCl 1000 mg/Sodium Chloride 270 ml @ 125 mls/hr DAILY@2200 IV 06/25/16 22:00 06/28/16 08:50 DC 06/27/16 22:24 125 MLS/HR Vancomycin HCl 1750 mg/Sodium Chloride 535 ml @ 200 mls/hr TODAY@2030 ONCE IV 06/24/16 20:30 06/24/16 23:10 DC 06/24/16 22:33 200 MLS/HR Piperacillin Sod/ Tazobactam Sod 3.375 gm/Dextrose 115 ml @ 230 mls/hr TODAY@2030 ONCE IV 06/24/16 20:30 06/24/16 20:59 DC 06/24/16 22:33 230 MLS/HR Piperacillin Sod/ Tazobactam Sod/ Dextrose (Zosyn Iv/D5 100ml) 115 ml @ 28.75 mls/ hr Q8H IV 06/25/16 02:00 07/05/16 01:59 06/29/16 09:59 28.75 MLS/HR Oxycodone/ Acetaminophen 1 tab 1 tab Q4H PRN PO 06/25/16 02:30 07/09/16 02:29 06/25/16 02:41 1 TAB Magnesium Sulfate 1 gm/Prmx 100 ml @ 100 mls/hr TODAY@1200,1300 IV 06/25/16 12:00 06/25/16 13:59 DC 06/25/16 13:39 100 MLS/HR Dextrose (D5W 1000ml) 1,000 ml @ 75 mls/hr [id number] IV 06/25/16 12:00 06/26/16 13:53 DC 06/26/16 01:12 75 MLS/HR Polyethylene (Miralax Powder Packet) 17 gm DAILY@1500 PO 06/25/16 15:00 07/25/16 14:59 06/25/16 14:32 17 GM Potassium Chloride 40 meq 40 meq NOW STAT PO 06/26/16 15:53 06/26/16 15:56 DC 06/26/16 16:27 40 MEQ Vancomycin HCl 900 mg/Sodium Chloride 268 ml @ 125 mls/hr DAILY@2200 IV 06/28/16 22:00 07/08/16 21:59 06/28/16 22:30 125 MLS/HR Dextrose (D5W 1000ml) 1,000 ml @ 125 mls/hr Q8H IV 06/28/16 13:30 06/29/16 05:56 125 MLS/HR Potassium Chloride (Klor-Con M10) 40 meq NOW STAT PO 06/29/16 07:32 06/29/16 07:35 DC 06/29/16 10:00 40 MEQ Objective Vital Signs Date Time Temp Pulse Resp B/P Pulse Ox O2 Delivery O2 Flow Rate FiO2 06/29/16 07:52 36.6 85 18 136/66 95 Room Air 06/28/16 23:38 Room Air 06/28/16 23:11 37.1 83 16 118/62 93 Room Air 06/28/16 16:30 96 Room Air 06/28/16 15:31 116/65 06/28/16 15:30 37.0 81 16 88/44 96 Room Air Physical Exam General Appearance: WD/WN, no apparent distress Eyes: normal inspection ENT: normal ENT inspection Neck: supple Respiratory/Chest: lungs clear, normal breath sounds, no respiratory distress, no accessory muscle use Cardiovascular: regular rate, rhythm, no murmur Abdomen: normal bowel sounds, non tender, soft Extremities: + pedal edema (+2 on left, +1 on right, cellulitis on left LE with desquamation- ranges from the left heel to 2/3 up the left LE) Neurologic/Psychiatric: no motor/sensory deficits, alert, oriented x 3 Skin: normal color, warm/dry, no rash Lymphatic: no adenopathy Laboratory Results Results Past 24 Hours Test 06/28/16 20:13 06/29/16 05:35 06/29/16 12:04 Range/Units Sodium Level 150 148 136-145 mmol/L Potassium Level 3.6 3.4 3.5-5.1 mmol/L Chloride Level 118 116 98-107 mmol/L Carbon Dioxide Level 20 20 21-32 mmol/L Anion Gap 12.0 12.0 3-11 mmol/L Blood Urea Nitrogen 11 9 7-18 mg/dl Creatinine 1.20 1.10 0.60-1.20 mg/dl Est Creatinine Clear Calc Drug Dose 38.2 41.7 ml/min Estimated GFR () 49.4 54.9 Estimated GFR (Non- 42.7 47.4 BUN/Creatinine Ratio 9.0 8.1 10-20 Random Glucose 120 107 70-99 mg/dl Calcium Level 8.1 8.1 8.5-10.1 mg/dl White Blood Count 7.78 4.8-10.8 K/uL Red Blood Count 2.74 4.2-5.4 M/uL Hemoglobin 8.0 12.0-16.0 g/dL Hematocrit 25.0 37-47 % Mean Corpuscular Volume 91.2 80-100 fL Mean Corpuscular Hemoglobin 29.2 25-34 pg Mean Corpuscular Hemoglobin Concent 32.0 32-36 g/dl Platelet Count 308 130-400 K/uL Mean Platelet Volume 10.2 7.4-10.4 fL Neutrophils (%) (Auto) 57.1 % Lymphocytes (%) (Auto) 20.4 % Monocytes (%) (Auto) 14.5 % Eosinophils (%) (Auto) 7.2 % Basophils (%) (Auto) 0.5 % Neutrophils # (Auto) 4.44 1.4-6.5 K/uL Lymphocytes # (Auto) 1.59 1.2-3.4 K/uL Monocytes # (Auto) 1.13 0.11-0.59 K/uL Eosinophils # (Auto) 0.56 0-0.5 K/uL Basophils # (Auto) 0.04 0-0.2 K/uL RDW Standard Deviation 61.6 36.4-46.3 fL RDW Coefficient of Variation 18.8 11.5-14.5 % Immature Granulocyte % (Auto) 0.3 % Immature Granulocyte # (Auto) 0.02 0.00-0.02 K/uL Red Blood Cell Morphology Unremarkable Phosphorus Level 2.7 2.5-4.9 mg/dl Albumin 1.9 3.4-5.0 gm/dl Urine Color YELLOW Urine Appearance CLEAR CLEAR Urine pH 5.5 4.5-7.5 Urine Specific [place] 1.000 1.000-1.030 Urine Protein NEG NEG Urine Glucose (UA) NEG NEG Urine Ketones NEG NEG Urine Occult Blood NEG NEG Urine Nitrite NEG NEG Urine Bilirubin NEG NEG Urine Urobilinogen NEG NEG Urine Leukocyte Esterase NEG NEG Urine Osmolality 122 500-800 mOms/kg Assessment and Plan This is an 80 yo f that has been suffering from chronic LE leg wounds since January and has cultured pseudomonas in the past. She has been on multiple antibiotics and once off of abx the cellulitis will worsen. She was recently on levaquin and because of a skin rash she stopped the medicine on day 12 and after abrupt worsening she returned to the hospital for treatment. Currently treated with Zosyn and vanco. Also has a h/o CKD III, PAD, AAA - stable Left lower extremity Cellulitis with ulcerations most likely secondary to venous insuff/ PAD - most recent would culture- corynebacterium and most likely contaminant - Vanco and zosyn- cont for 1-2 days and transition to PO as per ID - ID consult - appreciate input - Wound care consult appreciated -continue daily dressing changes Constipation: resolved - Miralax daily H/O GI Bleeding: June 2015 - Will be cautious with NSAIDs - Protonix daily LOLA on background of CKD III- resolved - Cr back at 1.1 after IVFs and holding lasix (has been off cozaar since previous admission) - Continue to avoid nephrotoxins Hypernatremia: - Na at 145 after D5W, now back at 149 after stopping D5W--> 151 today; review of record shows chronic high normal to high Na+ level - check AM cortisol to look for adrenal insufficiency s cause of hypernatremia-- > normal at 12 -continue to encourage free water intake- patient has been compliant and has been improving -restart D5W at 125 ml/hr- consider d/c tomorrow -Consult to Nephro appreciated -check Ur Osm - 122 (L) Hypokalemia/Hypomagnesemia: -follow PRP- replete prn Chronic back pain - Frequent repositioning; Heat packs; Tylenol PRN. - Patient needs continued PT/OT sessions Infrarenal AAA, PAD - AAA has been stable, currently measuring 5.0 cm. 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 Discussed with Dr. Martinez and agree with findings and plan as documented in the note. Any exceptions or clarifications are listed here: None Documented By: Alex Garcia leg looks better, less red. no f/c/s. OK w SQ heparin DVT proph (extensively discussed risks/benefits) vitals noted, leg dull red, swollen, no true erythema noted, walking slowly but steadily venous stasis ulcers w leg cellulitis - abx per ID, likely home in 48-72hrs after ongoing IV w more prolonged PO abx, ongoing wound f/u DVT proph - cautiously start heparin SQ - but with venous stasis, infection, immobility - high risk for clot without treatment despite recent hemorrhoidal bleed - she understands and agrees Continued [facility] stay due to: multiple IV medications needed, other Discharge planning: uncertain
[2016-06-29 15:17] VITALS: BP 127/71; PULSE 84; TEMP 36.7; O2SAT 96
--- NOTE | 2016-06-29 15:17 | Nephrology Progress Note ---
Nephrology Progress Note Date of Service Jun 29, 2016. Chief Complaint Follow up evaluation of hypernatremia Subjective Mrs. Faust was seen & examined in her hospital room this morning. She was admitted to the hospital for evaluation of an infected bullous lesion involving her left leg. Initial cultures obtained at the wound clinic were positive for Pseudomonas. Most recent cultures are positive only for Corynebacterium. The patient currently denies fever. She has been experiencing loose stool. The patient has had anemia. She was found to have blood in her stool 06/23. She declined colonoscopy due to her age. She feels that the bleeding was related to internal hemorrhoids. She currently denies abdominal pain. Mrs. Faust has had hypernatremia. Since admission to the hospital serum sodium has been 149 - 151 mmol/L. The patient denies polyuria. She readily acknowledges that she has not been thirsty. She does not force herself to drink water. She denies diarrhea. The patient complains of feeling cold. She has the heat set quite high on her hospital room thermostat. Review of Systems Constitutional: No fever Cardiovascular: No chest pain Abdomen: No diarrhea, No pain Extremities: + leg edema A complete review of systems was performed. Pertinent positives are noted above. All other systems are negative. Vital Signs Last 8 Hrs Date Time Temp Pulse Resp B/P Pulse Ox O2 Delivery O2 Flow Rate FiO2 06/29/16 07:52 36.6 85 18 136/66 95 Room Air I & O 24-Hour Column 06/29/16 08:00 Intake Total 2073 ml Output Total 1400 ml Balance 673 ml Last Recorded Weight Weight (Kilograms): 83.300 Physical Exam General Appearance: no apparent distress Head: normocephalic, atraumatic Eyes: PERRL, EOMI Neck: no adenopathy Respiratory/Chest: lungs clear Cardiovascular: regular rate, rhythm Abdomen/GI: normal bowel sounds, non tender, soft Extremities/Musculoskelatal: + swelling (trace pretibial edema. Left pretibial area wrapped. Dry peeling skin noted on both feet) Neurologic/Psych: alert, oriented x 3 Family History Patient reports no known family medical history. Social History Drug Use: none Marital Status: Housing Status: lives with family Occupation: retired Laboratory Results Past 24 Hours 06/29/16 05:35 Red Blood Count 2.74, Mean Corpuscular Volume 91.2, Mean Corpuscular Hemoglobin 29.2, Mean Corpuscular Hemoglobin Concent 32.0, Mean Platelet Volume 10.2, Neutrophils (%) (Auto) 57.1, Lymphocytes (%) (Auto) 20.4, Monocytes (%) (Auto) 14.5, Eosinophils (%) (Auto) 7.2, Basophils (%) (Auto) 0.5, Neutrophils # (Auto ) 4.44, Lymphocytes # (Auto) 1.59, Monocytes # (Auto) 1.13, Eosinophils # (Auto ) 0.56, Basophils # (Auto) 0.04 06/28/16 20:13 06/29/16 05:35 Test 06/28/16 20:13 06/29/16 05:35 06/29/16 12:04 Anion Gap 12.0 mmol/L (3-11) 12.0 mmol/L (3-11) Est Creatinine Clear Calc Drug Dose 38.2 ml/min 41.7 ml/min Estimated GFR () 49.4 54.9 Estimated GFR (Non- 42.7 47.4 BUN/Creatinine Ratio 9.0 (10-20) 8.1 (10-20) Calcium Level 8.1 mg/dl (8.5-10.1) 8.1 mg/dl (8.5-10.1) White Blood Count 7.78 K/uL (4.8-10.8) Red Blood Count 2.74 M/uL (4.2-5.4) Hemoglobin 8.0 g/dL (12.0-16.0) Hematocrit 25.0 % (37-47) Mean Corpuscular Volume 91.2 fL (80-100) Mean Corpuscular Hemoglobin 29.2 pg (25-34) Mean Corpuscular Hemoglobin Concent 32.0 g/dl (32-36) Platelet Count 308 K/uL (130-400) Mean Platelet Volume 10.2 fL (7.4-10.4) Neutrophils (%) (Auto) 57.1 % Lymphocytes (%) (Auto) 20.4 % Monocytes (%) (Auto) 14.5 % Eosinophils (%) (Auto) 7.2 % Basophils (%) (Auto) 0.5 % Neutrophils # (Auto) 4.44 K/uL (1.4-6.5) Lymphocytes # (Auto) 1.59 K/uL (1.2-3.4) Monocytes # (Auto) 1.13 K/uL (0.11-0.59) Eosinophils # (Auto) 0.56 K/uL (0-0.5) Basophils # (Auto) 0.04 K/uL (0-0.2) RDW Standard Deviation 61.6 fL (36.4-46.3) RDW Coefficient of Variation 18.8 % (11.5-14.5) Immature Granulocyte % (Auto) 0.3 % Immature Granulocyte # (Auto) 0.02 K/uL (0.00-0.02) Red Blood Cell Morphology Unremarkable Phosphorus Level 2.7 mg/dl (2.5-4.9) Albumin 1.9 gm/dl (3.4-5.0) Urine Color YELLOW Urine Appearance CLEAR (CLEAR) Urine pH 5.5 (4.5-7.5) Urine Specific [place] 1.000 (1.000-1.030) Urine Protein NEG (NEG) Urine Glucose (UA) NEG (NEG) Urine Ketones NEG (NEG) Urine Occult Blood NEG (NEG) Urine Nitrite NEG (NEG) Urine Bilirubin NEG (NEG) Urine Urobilinogen NEG (NEG) Urine Leukocyte Esterase NEG (NEG) Urine Osmolality 122 mOms/kg (500-800) Allergies Coded Allergies: Erythromycin (Verified Allergy, Intermediate, RASH, 06/17/16) Iodinated Diagnostic Agents (Verified Allergy, Intermediate, RASH, 06/17/16 ) Latex1 -Allergic Contact Dermititis (Verified Allergy, Mild, RASH, 06/17/16 ) Uncoded Allergies: ALL "RUBEN" (Allergy, Unknown, UNKNOWN, 11/13/08) Medications Current Inpatient Medications Medications (Trade) Dose Ordered Sig/Jose Route Start Time Stop Time Status Last Admin Dose Admin Acetaminophen (Tylenol Tab) 650 mg Q4H PRN PO 06/24/16 17:00 07/24/16 16:59 06/28/16 23:31 650 MG Polyethylene (Miralax Powder Packet) 17 gm DAILY PRN PO 06/24/16 17:00 07/24/16 16:59 Ondansetron HCl (Zofran Inj) 4 mg Q6H PRN IV 06/24/16 17:00 07/24/16 16:59 Levothyroxine Sodium (Synthroid Tab) 150 mcg DAILYBB PO 06/25/16 06:00 07/25/16 05:59 06/29/16 05:55 150 MCG Pantoprazole Sodium (Protonix Tab) 40 mg DAILY PO 06/25/16 09:00 07/25/16 08:59 06/29/16 09:41 40 MG Pentoxifylline (Trental Tab) 400 mg TID PO 06/24/16 21:00 07/24/16 20:59 06/29/16 14:04 400 MG Simvastatin (Zocor Tab) 40 mg DAILY PO 06/25/16 09:00 07/25/16 08:59 06/29/16 09:41 40 MG Vancomycin HCl (Consult) 1 ea UD PRN N/A 06/24/16 20:00 07/24/16 19:59 Piperacillin Sod/ Tazobactam Sod 1 ea 1 ea UD PRN N/A 06/24/16 20:00 07/24/16 19:59 Piperacillin Sod/ Tazobactam Sod/ Dextrose (Zosyn Iv/D5 100ml) 115 ml @ 28.75 mls/ hr Q8H IV 06/25/16 02:00 07/05/16 01:59 06/29/16 09:59 28.75 MLS/HR Oxycodone/ Acetaminophen (Percocet 5-325mg Tab) 1 tab Q4H PRN PO 06/25/16 02:30 07/09/16 02:29 06/25/16 02:41 1 TAB Polyethylene 17 gm 17 gm DAILY@1500 PO 06/25/16 15:00 07/25/16 14:59 06/25/16 14:32 17 GM Vancomycin HCl 900 mg/Sodium Chloride 268 ml @ 125 mls/hr DAILY@2200 IV 06/28/16 22:00 07/08/16 21:59 06/28/16 22:30 125 MLS/HR Dextrose (D5W 1000ml) 1,000 ml @ 125 mls/hr Q8H IV 06/28/16 13:30 06/29/16 14:10 125 MLS/HR Heparin Sodium (Porcine) (Heparin Sq 5000 Unit/0.5ml) 5,000 unit Q12 SQ 06/29/16 21:00 07/29/16 20:59 Impression (1) Hypernatremia (2) Cellulitis of left lower extremity (3) Acute kidney injury Mrs. Faust is an 80-year-old female with PVD, venous insufficiency, HTN who was admitted to [facility] for evaluation of a chronic left lower extremity wound. Hospitalization has been complicated by a persistent hypernatremia. Her free water deficit did improve with IV D5W. However serum sodium started to rise after the infusion was stopped. The patient does not endorse any anorexia or GI symptoms. She denies diarrhea. She is able to drink fluids without restriction. She often restricts her fluid intake due to urinary urgency. Recommendations HYPERNATREMIA: -- I&O's have been relatively matched. Patient is not polyuric. Clinically doubt CDI / NDI -- Will check urine osmolality to assess for osmotic diuresis -- Continue D5W at 125 cc/hr -- Encourage oral free water intake. Patient likely has insensible losses associated with high room temperature -- Monitor PRP ID: -- Most recent wound cx positive for Corynebacterium. Recommend narrowing antibiotic spectrum and converting to oral therapy -- Monitor for diarrhea ENDOCRINE: -- Random cortisol level was within normal limits
[2016-06-29] MEDS: HEPARIN SOD 5000 UNIT/0.5 ML CARP SQ SCH (21:01)
[2016-06-29] MEDS: VANCOMYCIN INJ 900 MG in SODIUM CHLORIDE 0.9% 250ML 250 ML IV SCH (21:58)
[2016-06-29] MEDS: ACETAMINOPHEN 325 MG TAB PO PRN (23:32)
[2016-06-30] VITALS: BP 128/63; PULSE 82; TEMP 36.9; O2SAT 92
[2016-06-30] MEDS: PIPERACILL/TAZOBAC IV 3.375 GM in DEXTROSE 5% 100ML IV SCH ×3 (02:15→18:11)
[2016-06-30] MEDS: LEVOTHYROXINE 150 MCG TAB PO SCH (04:59)
[2016-06-30] MEDS: DEXTROSE 5% 1000ML 1,000 ML IV SCH (05:01)
[2016-06-30 06:57] VITALS: BP 132/68; PULSE 73; TEMP 36.6; O2SAT 97
[2016-06-30 07:31] LABS: HEMATOCRIT 27.4 % (37-47); MEAN CELL VOLUME 93.2 fL (80-100); MEAN CORPUSCULAR HEMOGLOBIN 29.9 pg (25-34); MEAN CORPUSCULAR HGB CONC 32.1 g/dl (32-36); MEAN PLATELET VOLUME 10.8 fL (7.4-10.4); PLATELET COUNT 350 K/uL (130-400); RED BLOOD COUNT 2.94 M/uL (4.2-5.4); WHITE BLOOD COUNT 7.91 K/uL (4.8-10.8)
[2016-06-30 08:03] LABS: BUN/CREATININE RATIO 5.3 (10-20); CALCIUM 8.4 mg/dl (8.5-10.1); CREATININE 1.2 mg/dl (0.60-1.20); PHOSPHORUS 2.5 mg/dl (2.5-4.9); POTASSIUM 3.7 mmol/L (3.5-5.1)
--- NOTE | 2016-06-30 09:20 | Family Medicine Progress Note ---
Progress Note Date of Service Jun 30, 2016. Subjective Pt evaluation today including: conversation w/ patient, physical exam, chart review, lab review Pain: 0/10 PO Intake: WNL Voiding: no voiding problems States that she feels there is ongoing improvement in the cellulitis denies any pain and states she is just having trouble sleeping in the hospital reiterated plan for d/c and patient still agreeable Constitutional: No fever Eyes: No worsening of vision ENT: No hearing loss Respiratory: No cough, No dyspnea on exertion, No shortness of breath, No sputum, No wheezing Cardiovascular: No chest pain Abdomen: No constipation, No diarrhea, No nausea, No pain, No vomiting Neurologic: + balance problems, No paralysis, No weakness Psychiatric: No depression symptoms Endo: No fatigue Skin: + problem reported (improving cellulitis), No rash Medications Medications Administered Medications (Trade) Dose Ordered Sig/Jose Route Start Time Stop Time Status Last Admin Dose Admin Acetaminophen (Tylenol Tab) 650 mg Q4H PRN PO 06/24/16 17:00 07/24/16 16:59 06/29/16 23:32 650 MG Levothyroxine Sodium (Synthroid Tab) 150 mcg DAILYBB PO 06/25/16 06:00 07/25/16 05:59 06/30/16 04:59 150 MCG Pantoprazole Sodium (Protonix Tab) 40 mg DAILY PO 06/25/16 09:00 07/25/16 08:59 06/29/16 09:41 40 MG Pentoxifylline (Trental Tab) 400 mg TID PO 06/24/16 21:00 07/24/16 20:59 06/29/16 20:52 400 MG Simvastatin 40 mg 40 mg DAILY PO 06/25/16 09:00 07/25/16 08:59 06/29/16 09:41 40 MG Sodium Chloride 1,000 ml @ 75 mls/hr [id number] IV 06/24/16 19:30 06/25/16 11:34 DC 06/25/16 08:56 75 MLS/HR Vancomycin HCl 1000 mg/Sodium Chloride 270 ml @ 125 mls/hr DAILY@2200 IV 06/25/16 22:00 06/28/16 08:50 DC 06/27/16 22:24 125 MLS/HR Vancomycin HCl 1750 mg/Sodium Chloride 535 ml @ 200 mls/hr TODAY@2030 ONCE IV 06/24/16 20:30 06/24/16 23:10 DC 06/24/16 22:33 200 MLS/HR Piperacillin Sod/ Tazobactam Sod 3.375 gm/Dextrose 115 ml @ 230 mls/hr TODAY@2030 ONCE IV 06/24/16 20:30 06/24/16 20:59 DC 06/24/16 22:33 230 MLS/HR Piperacillin Sod/ Tazobactam Sod/ Dextrose (Zosyn Iv/D5 100ml) 115 ml @ 28.75 mls/ hr Q8H IV 06/25/16 02:00 07/05/16 01:59 06/30/16 02:15 28.75 MLS/HR Oxycodone/ Acetaminophen 1 tab 1 tab Q4H PRN PO 06/25/16 02:30 07/09/16 02:29 06/25/16 02:41 1 TAB Magnesium Sulfate 1 gm/Prmx 100 ml @ 100 mls/hr TODAY@1200,1300 IV 06/25/16 12:00 06/25/16 13:59 DC 06/25/16 13:39 100 MLS/HR Dextrose (D5W 1000ml) 1,000 ml @ 75 mls/hr [id number] IV 06/25/16 12:00 06/26/16 13:53 DC 06/26/16 01:12 75 MLS/HR Polyethylene (Miralax Powder Packet) 17 gm DAILY@1500 PO 06/25/16 15:00 07/25/16 14:59 06/25/16 14:32 17 GM Potassium Chloride 40 meq 40 meq NOW STAT PO 06/26/16 15:53 06/26/16 15:56 DC 06/26/16 16:27 40 MEQ Vancomycin HCl 900 mg/Sodium Chloride 268 ml @ 125 mls/hr DAILY@2200 IV 06/28/16 22:00 07/08/16 21:59 06/29/16 21:58 125 MLS/HR Dextrose (D5W 1000ml) 1,000 ml @ 125 mls/hr Q8H IV 06/28/16 13:30 06/30/16 05:01 125 MLS/HR Potassium Chloride (Klor-Con M10) 40 meq NOW STAT PO 06/29/16 07:32 06/29/16 07:35 DC 06/29/16 10:00 40 MEQ Heparin Sodium (Porcine) (Heparin Sq 5000 Unit/0.5ml) 5,000 unit Q12 SQ 06/29/16 21:00 07/29/16 20:59 06/29/16 21:01 5,000 UNIT Objective Vital Signs Date Time Temp Pulse Resp B/P Pulse Ox O2 Delivery O2 Flow Rate FiO2 06/30/16 06:57 36.6 73 16 132/68 97 Room Air 06/30/16 00:00 Room Air 06/30/16 00:00 36.9 82 20 128/63 92 Room Air 06/29/16 15:25 Room Air 06/29/16 15:17 36.7 84 16 127/71 96 Room Air Physical Exam General Appearance: WD/WN, no apparent distress Eyes: normal inspection ENT: normal ENT inspection Neck: supple Respiratory/Chest: lungs clear, normal breath sounds, no respiratory distress, no accessory muscle use Cardiovascular: regular rate, rhythm, no murmur Abdomen: normal bowel sounds, non tender, soft Extremities: normal range of motion, non-tender, + pertinent finding (left le cellulitis is stable, desquamation of left LE, BL mild redness of right LE) Neurologic/Psychiatric: alert, oriented x 3 Skin: normal color, warm/dry, no rash Lymphatic: no adenopathy Laboratory Results Results Past 24 Hours Test 06/29/16 12:04 06/30/16 03:00 06/30/16 06:45 Range/Units Urine Color YELLOW Urine Appearance CLEAR CLEAR Urine pH 5.5 4.5-7.5 Urine Specific [place] 1.000 1.000-1.030 Urine Protein NEG NEG Urine Glucose (UA) NEG NEG Urine Ketones NEG NEG Urine Occult Blood NEG NEG Urine Nitrite NEG NEG Urine Bilirubin NEG NEG Urine Urobilinogen NEG NEG Urine Leukocyte Esterase NEG NEG Urine Osmolality 122 111 500-800 mOms/kg White Blood Count 7.91 4.8-10.8 K/uL Red Blood Count 2.94 4.2-5.4 M/uL Hemoglobin 8.8 12.0-16.0 g/dL Hematocrit 27.4 37-47 % Mean Corpuscular Volume 93.2 80-100 fL Mean Corpuscular Hemoglobin 29.9 25-34 pg Mean Corpuscular Hemoglobin Concent 32.1 32-36 g/dl RDW Standard Deviation 63.0 36.4-46.3 fL RDW Coefficient of Variation 18.7 11.5-14.5 % Platelet Count 350 130-400 K/uL Mean Platelet Volume 10.8 7.4-10.4 fL Sodium Level 147 136-145 mmol/L Potassium Level 3.7 3.5-5.1 mmol/L Chloride Level 116 98-107 mmol/L Carbon Dioxide Level 20 21-32 mmol/L Anion Gap 11.0 3-11 mmol/L Blood Urea Nitrogen 6 7-18 mg/dl Creatinine 1.20 0.60-1.20 mg/dl Est Creatinine Clear Calc Drug Dose 38.2 ml/min Estimated GFR () 49.4 Estimated GFR (Non- 42.7 BUN/Creatinine Ratio 5.3 10-20 Random Glucose 98 70-99 mg/dl Calcium Level 8.4 8.5-10.1 mg/dl Phosphorus Level 2.5 2.5-4.9 mg/dl Albumin 2.0 3.4-5.0 gm/dl Assessment and Plan This is an 80 yo f that has been suffering from chronic LE leg wounds since January and has cultured pseudomonas in the past. She has been on multiple antibiotics and once off of abx the cellulitis will worsen. She was recently on levaquin and because of a skin rash she stopped the medicine on day 12 and after abrupt worsening she returned to the hospital for treatment. Currently treated with Zosyn and vanco. Also has a h/o CKD III, PAD, AAA - stable Left lower extremity Cellulitis with ulcerations most likely secondary to venous insuff/ PAD - most recent would culture- corynebacterium and most likely contaminant - Vanco and zosyn- cont for 1more day and transition to PO as per ID - ID consult - appreciate input - Wound care consult appreciated -continue daily dressing changes Constipation: resolved - Miralax daily H/O GI Bleeding: June 2015 - Will be cautious with NSAIDs - Protonix daily LOLA on background of CKD III- resolved - Cr back at 1.1 after IVFs and holding lasix (has been off cozaar since previous admission) - Continue to avoid nephrotoxins Hypernatremia: - slow improvement to 147; review of record shows chronic high normal to high Na + level - check AM cortisol to look for adrenal insufficiency s cause of hypernatremia-- > normal at 12 -continue to encourage free water intake- patient has been compliant and has been improving -restart D5W at 125 ml/hr- consider d/c tomorrow -Consult to Nephro appreciated -check Ur Osm - 122 (L) Hypokalemia/Hypomagnesemia: -follow PRP- replete prn Chronic back pain - Frequent repositioning; Heat packs; Tylenol PRN. - Patient needs continued PT/OT sessions Infrarenal AAA, PAD - AAA has been stable, currently measuring 5.0 cm. 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 Discussed with Dr. Martinez and agree with findings and plan as documented in the note. Any exceptions or clarifications are listed here: None Documented By: Alex Garcia feeling better, no f/c/s. leg redness improving vitals noted, foot/lopez without erythema, just dull redness. venous stasis ulcer w cellulitis - improving. continue abx as per ID, anticipate PO by tomorrow with ongoing improvement DVT proph - heparin SQ Continued [facility] stay due to: multiple IV medications needed Discharge planning: uncertain
[2016-06-30] MEDS: HEPARIN SOD 5000 UNIT/0.5 ML CARP SQ SCH ×2 (09:46→20:57)
[2016-06-30] MEDS: PENTOXIFYLLINE 400MG EXT REL TAB PO SCH ×3 (09:47→20:54)
[2016-06-30] MEDS: SIMVASTATIN 40 MG TAB PO SCH (09:47)
[2016-06-30] MEDS: PANTOprazole SOD 40 MG TAB PO SCH (09:48)
--- NOTE | 2016-06-30 10:43 | Infectious Disease Progress Nt ---
Progress Note Date of Service Jun 30, 2016. Subjective Pt evaluation today including: conversation w/ patient, physical exam, chart review, lab review, review of studies, review of inpatient medication list WBC count 7.91 today. Creatinine is 1.20. She continues on IV Vancomycin and Zosyn. Culture [employer] continues to show growth of Corynebacterium only. No new imaging. All Other Systems: Reviewed and Negative Medications Current Inpatient Medications Medications (Trade) Dose Ordered Sig/Jose Route Start Time Stop Time Status Last Admin Dose Admin Acetaminophen (Tylenol Tab) 650 mg Q4H PRN PO 06/24/16 17:00 07/24/16 16:59 06/29/16 23:32 650 MG Polyethylene (Miralax Powder Packet) 17 gm DAILY PRN PO 06/24/16 17:00 07/24/16 16:59 Ondansetron HCl (Zofran Inj) 4 mg Q6H PRN IV 06/24/16 17:00 07/24/16 16:59 Levothyroxine Sodium (Synthroid Tab) 150 mcg DAILYBB PO 06/25/16 06:00 07/25/16 05:59 06/30/16 04:59 150 MCG Pantoprazole Sodium (Protonix Tab) 40 mg DAILY PO 06/25/16 09:00 07/25/16 08:59 06/30/16 09:48 40 MG Pentoxifylline (Trental Tab) 400 mg TID PO 06/24/16 21:00 07/24/16 20:59 06/30/16 09:47 400 MG Simvastatin (Zocor Tab) 40 mg DAILY PO 06/25/16 09:00 07/25/16 08:59 06/30/16 09:47 40 MG Piperacillin Sod/ Tazobactam Sod 1 ea 1 ea UD PRN N/A 06/24/16 20:00 07/24/16 19:59 Piperacillin Sod/ Tazobactam Sod/ Dextrose (Zosyn Iv/D5 100ml) 115 ml @ 28.75 mls/ hr Q8H IV 06/25/16 02:00 07/05/16 01:59 06/30/16 09:47 28.75 MLS/HR Oxycodone/ Acetaminophen (Percocet 5-325mg Tab) 1 tab Q4H PRN PO 06/25/16 02:30 07/09/16 02:29 06/25/16 02:41 1 TAB Polyethylene 17 gm 17 gm DAILY@1500 PO 06/25/16 15:00 07/25/16 14:59 06/25/16 14:32 17 GM Dextrose (D5W 1000ml) 1,000 ml @ 125 mls/hr Q8H IV 06/28/16 13:30 06/30/16 05:01 125 MLS/HR Heparin Sodium (Porcine) (Heparin Sq 5000 Unit/0.5ml) 5,000 unit Q12 SQ 06/29/16 21:00 07/29/16 20:59 06/30/16 09:46 5,000 UNIT Objective Vital Signs Date Time Temp Pulse Resp B/P Pulse Ox O2 Delivery O2 Flow Rate FiO2 06/30/16 06:57 36.6 73 16 132/68 97 Room Air 06/30/16 00:00 Room Air 06/30/16 00:00 36.9 82 20 128/63 92 Room Air 06/29/16 15:25 Room Air 06/29/16 15:17 36.7 84 16 127/71 96 Room Air Physical Exam General Appearance: no apparent distress, + obese Eyes: normal inspection, sclerae normal ENT: hearing grossly normal Neck: supple, trachea midline Respiratory/Chest: chest non-tender, lungs clear, normal breath sounds, no respiratory distress, no accessory muscle use Cardiovascular: regular rate, rhythm Abdomen: normal bowel sounds, non tender, soft Extremities: + pertinent finding (continued mild edema of the bilatearl lower extremities. Not as much tenderness of the LLE today.) Neurologic/Psychiatric: alert, normal mood/affect Skin: warm/dry, + pertinent finding (Moderate peeling skin of the left lower extremity today with eschar between her toes. Continued mild erythema. Slight drainage noted on bandage) Laboratory Results Last 24 Hours Test 06/29/16 12:04 06/30/16 03:00 06/30/16 06:45 Urine Color YELLOW Urine Appearance CLEAR Urine pH 5.5 Urine Specific [place] 1.000 Urine Protein NEG Urine Glucose (UA) NEG Urine Ketones NEG Urine Occult Blood NEG Urine Nitrite NEG Urine Bilirubin NEG Urine Urobilinogen NEG Urine Leukocyte Esterase NEG Urine Osmolality 122 mOms/kg 111 mOms/kg White Blood Count 7.91 K/uL Red Blood Count 2.94 M/uL Hemoglobin 8.8 g/dL Hematocrit 27.4 % Mean Corpuscular Volume 93.2 fL Mean Corpuscular Hemoglobin 29.9 pg Mean Corpuscular Hemoglobin Concent 32.1 g/dl RDW Standard Deviation 63.0 fL RDW Coefficient of Variation 18.7 % Platelet Count 350 K/uL Mean Platelet Volume 10.8 fL Sodium Level 147 mmol/L Potassium Level 3.7 mmol/L Chloride Level 116 mmol/L Carbon Dioxide Level 20 mmol/L Anion Gap 11.0 mmol/L Blood Urea Nitrogen 6 mg/dl Creatinine 1.20 mg/dl Est Creatinine Clear Calc Drug Dose 38.2 ml/min Estimated GFR () 49.4 Estimated GFR (Non- 42.7 BUN/Creatinine Ratio 5.3 Random Glucose 98 mg/dl Calcium Level 8.4 mg/dl Phosphorus Level 2.5 mg/dl Albumin 2.0 gm/dl Assessment and Plan Patient with severe weeping cellulitis of the left lower extremity. Now slightly improved with continued peeling skin, erythema, and tenderness. Most recent wound culture from wound care visit prior to admission is showing Corynebacterium only which is likely skin contamination. Patient has previously had Pseudomonas and MSSA from her LLE. She is currently on IV Vancomycin and Zosyn. Will D/C Vancomycin but continue Zosyn today. Will attempt transition to PO abx tomorrow morning. Recommend monitoring the patient for 1 day on PO therapy due to previous abx reaction. Will try to transition to PO Keflex and Cipro. Patient likely will need continued abx therapy for at least 2 weeks following D/C, and she also will need continued wound care. Plan: 1. Continue IV Zosyn, D/C Vancomycin 2.Transition to PO Cipro and Keflex in the morning PROVIDER ADDENDUM: Patient reviewed with Ms. Pate. Agree with above assessment.
--- NOTE | 2016-06-30 12:13 | Nephrology Progress Note ---
Nephrology Progress Note Date of Service Jun 30, 2016. Chief Complaint Follow up evaluation of hypernatremia Subjective Mrs. Faust was seen & examined in her hospital room this morning. She was admitted to the hospital for evaluation of an infected bullous lesion involving her left leg. Initial cultures obtained at the wound clinic were positive for Pseudomonas. Most recent cultures are positive only for Corynebacterium. The patient currently denies fever. She has been experiencing loose stool. The patient has had anemia. She was found to have blood in her stool 06/23. She declined colonoscopy due to her age. She feels that the bleeding was related to internal hemorrhoids and diverticulosis. She currently denies abdominal pain. Mrs. Faust has had hypernatremia. Since admission to the hospital serum sodium has been 149 - 151 mmol/L. The patient denies polyuria. She denies diarrhea. She has now been trying to force herself to drink 2 L water each day. Review of Systems Constitutional: No fever Cardiovascular: No chest pain Respiratory: No dyspnea at rest Abdomen: No diarrhea, No pain Genitourinary - Female: No dysuria, No gross hematuria Extremities: No leg edema A complete review of systems was performed. Pertinent positives are noted above. All other systems are negative. Vital Signs Last 8 Hrs Date Time Temp Pulse Resp B/P Pulse Ox O2 Delivery O2 Flow Rate FiO2 06/30/16 08:30 Room Air 06/30/16 06:57 36.6 73 16 132/68 97 Room Air I & O 24-Hour Column 06/30/16 08:00 Intake Total 3678 ml Output Total 3125 ml Balance 553 ml Last Recorded Weight Weight (Kilograms): 83.300 Physical Exam General Appearance: no apparent distress Head: normocephalic, atraumatic Eyes: PERRL, EOMI Neck: no adenopathy Respiratory/Chest: lungs clear, no respiratory distress Cardiovascular: regular rate, rhythm Abdomen/GI: normal bowel sounds, non tender, soft Extremities/Musculoskelatal: + swelling (trace pretibial edema. Left pretibial area is wrapped) Neurologic/Psych: alert, oriented x 3 Family History Patient reports no known family medical history. Social History Drug Use: none Marital Status: Housing Status: lives with family Occupation: retired Laboratory Results Past 24 Hours 06/30/16 06:45 06/30/16 06:45 Test 06/30/16 03:00 06/30/16 06:45 Urine Osmolality 111 mOms/kg (500-800) Red Blood Count 2.94 M/uL (4.2-5.4) Mean Corpuscular Volume 93.2 fL (80-100) Mean Corpuscular Hemoglobin 29.9 pg (25-34) Mean Corpuscular Hemoglobin Concent 32.1 g/dl (32-36) RDW Standard Deviation 63.0 fL (36.4-46.3) RDW Coefficient of Variation 18.7 % (11.5-14.5) Mean Platelet Volume 10.8 fL (7.4-10.4) Anion Gap 11.0 mmol/L (3-11) Est Creatinine Clear Calc Drug Dose 38.2 ml/min Estimated GFR () 49.4 Estimated GFR (Non- 42.7 BUN/Creatinine Ratio 5.3 (10-20) Calcium Level 8.4 mg/dl (8.5-10.1) Phosphorus Level 2.5 mg/dl (2.5-4.9) Albumin 2.0 gm/dl (3.4-5.0) Allergies Coded Allergies: Erythromycin (Verified Allergy, Intermediate, RASH, 06/17/16) Iodinated Diagnostic Agents (Verified Allergy, Intermediate, RASH, 06/17/16 ) Latex1 -Allergic Contact Dermititis (Verified Allergy, Mild, RASH, 06/17/16 ) Uncoded Allergies: ALL "RUBEN" (Allergy, Unknown, UNKNOWN, 11/13/08) Medications Current Inpatient Medications Medications (Trade) Dose Ordered Sig/Jose Route Start Time Stop Time Status Last Admin Dose Admin Acetaminophen (Tylenol Tab) 650 mg Q4H PRN PO 06/24/16 17:00 07/24/16 16:59 06/29/16 23:32 650 MG Polyethylene (Miralax Powder Packet) 17 gm DAILY PRN PO 06/24/16 17:00 07/24/16 16:59 Ondansetron HCl (Zofran Inj) 4 mg Q6H PRN IV 06/24/16 17:00 07/24/16 16:59 Levothyroxine Sodium (Synthroid Tab) 150 mcg DAILYBB PO 06/25/16 06:00 07/25/16 05:59 06/30/16 04:59 150 MCG Pantoprazole Sodium (Protonix Tab) 40 mg DAILY PO 06/25/16 09:00 07/25/16 08:59 06/30/16 09:48 40 MG Pentoxifylline (Trental Tab) 400 mg TID PO 06/24/16 21:00 07/24/16 20:59 06/30/16 09:47 400 MG Simvastatin (Zocor Tab) 40 mg DAILY PO 06/25/16 09:00 07/25/16 08:59 06/30/16 09:47 40 MG Piperacillin Sod/ Tazobactam Sod 1 ea 1 ea UD PRN N/A 06/24/16 20:00 06/30/16 23:59 Piperacillin Sod/ Tazobactam Sod/ Dextrose (Zosyn Iv/D5 100ml) 115 ml @ 28.75 mls/ hr Q8H IV 06/25/16 02:00 06/30/16 23:59 06/30/16 09:47 28.75 MLS/HR Oxycodone/ Acetaminophen (Percocet 5-325mg Tab) 1 tab Q4H PRN PO 06/25/16 02:30 07/09/16 02:29 06/25/16 02:41 1 TAB Polyethylene 17 gm 17 gm DAILY@1500 PO 06/25/16 15:00 07/25/16 14:59 06/25/16 14:32 17 GM Dextrose (D5W 1000ml) 1,000 ml @ 125 mls/hr Q8H IV 06/28/16 13:30 06/30/16 05:01 125 MLS/HR Heparin Sodium (Porcine) (Heparin Sq 5000 Unit/0.5ml) 5,000 unit Q12 SQ 06/29/16 21:00 07/29/16 20:59 06/30/16 09:46 5,000 UNIT Cephalexin Monohydrate (Keflex Cap) 500 mg BID PO 07/01/16 08:00 07/11/16 07:59 Ciprofloxacin (Cipro Tab) 500 mg BID PO 07/01/16 08:00 07/11/16 07:59 Impression (1) Hypernatremia (2) Cellulitis of left lower extremity (3) Acute kidney injury Mrs. Faust is an 80-year-old female with PVD, venous insufficiency, HTN who was admitted to [facility] for evaluation of a chronic left lower extremity wound. Hospitalization has been complicated by a persistent hypernatremia. Her free water deficit did improve with IV D5W. However serum sodium started to rise after the infusion was stopped. The patient does not endorse any anorexia or GI symptoms. She denies diarrhea. She is able to drink fluids without restriction. She often restricts her fluid intake due to urinary urgency. Recommendations HYPERNATREMIA: -- I&O's have been relatively matched. Patient is not polyuric. Clinically doubt CDI / NDI -- Urine osmolality is low. No evidence of osmotically active substance -- Heplock IVF -- Encourage oral free water intake. Patient likely has insensible losses associated with high room temperature -- Monitor PRP ID: -- Most recent wound cx positive for Corynebacterium -- Patient has been transitioned to oral antibiotic therapy (Keflex & Cipro) -- Monitor for diarrhea ENDOCRINE: -- Random cortisol level was within normal limits
[2016-06-30] MEDS: POLYETHYLENE (MIRALAX) 17 GM PACK PO SCH (13:58)
[2016-06-30 15:36] VITALS: BP 131/60; PULSE 84; TEMP 36.6; O2SAT 95
[2016-06-30] MEDS ORDERED: VANCOMYCIN TROUGH ONE (21:30)
[2016-06-30] MEDS: ACETAMINOPHEN 325 MG TAB PO PRN (22:29)
[2016-07-01] VITALS: BP 118/65; PULSE 68; TEMP 37.2; O2SAT 95
[2016-07-01] MEDS: LEVOTHYROXINE 150 MCG TAB PO SCH (05:55)
[2016-07-01 07:10] VITALS: BP 148/76; PULSE 75; TEMP 36.3; O2SAT 96
[2016-07-01 07:38] LABS: HEMATOCRIT 27.4 % (37-47); MEAN CELL VOLUME 93.5 fL (80-100); MEAN CORPUSCULAR HEMOGLOBIN 28.7 pg (25-34); MEAN CORPUSCULAR HGB CONC 30.7 g/dl (32-36); MEAN PLATELET VOLUME 10.4 fL (7.4-10.4); PLATELET COUNT 338 K/uL (130-400); RED BLOOD COUNT 2.93 M/uL (4.2-5.4); WHITE BLOOD COUNT 6.28 K/uL (4.8-10.8)
[2016-07-01] MEDS ORDERED: CIPROFLOXACIN 500 MG TAB PO SCH (08:00)
[2016-07-01] MEDS: CEPHALEXIN MONOHYDRATE 500 MG CAP PO SCH ×2 (08:07→21:15)
[2016-07-01] MEDS: CIPROFLOXACIN 500 MG TAB PO SCH ×2 (08:07→21:15)
[2016-07-01 08:12] LABS: BUN/CREATININE RATIO 4.9 (10-20); CALCIUM 8.3 mg/dl (8.5-10.1); CREATININE 1.1 mg/dl (0.60-1.20); POTASSIUM 3.8 mmol/L (3.5-5.1)
[2016-07-01 08:15] LABS: PHOSPHORUS 3.1 mg/dl (2.5-4.9)
[2016-07-01] MEDS: HEPARIN SOD 5000 UNIT/0.5 ML CARP SQ SCH ×2 (09:00→21:13)
[2016-07-01] MEDS: PENTOXIFYLLINE 400MG EXT REL TAB PO SCH ×3 (09:15→21:15)
[2016-07-01] MEDS: PANTOprazole SOD 40 MG TAB PO SCH (09:16)
[2016-07-01] MEDS: SIMVASTATIN 40 MG TAB PO SCH (09:16)
--- NOTE | 2016-07-01 11:00 | Nephrology Progress Note ---
Nephrology Progress Note Date of Service Jul 01, 2016. Chief Complaint Follow up evaluation of hypernatremia Subjective Mrs. Faust was seen & examined in her hospital room this morning. She was admitted to the hospital for evaluation of an infected bullous lesion involving her left leg. Initial cultures obtained at the wound clinic were positive for Pseudomonas. Most recent cultures are positive only for Corynebacterium. The patient currently denies fever. She has been experiencing loose stool. The patient has had anemia. She was found to have blood in her stool 06/23. She declined colonoscopy due to her age. She feels that the bleeding was related to internal hemorrhoids and diverticulosis. She currently denies abdominal pain. Mrs. Faust has had hypernatremia. Since admission to the hospital serum sodium has been 149 - 151 mmol/L. The patient denies polyuria. She denies diarrhea. She has now been trying to force herself to drink 2 L water each day. IVF were discontinued yesterday. Review of Systems Constitutional: No fever Cardiovascular: No chest pain Abdomen: No pain Genitourinary - Female: No dysuria Extremities: + problem reported (RLE swelling redness and pain) A complete review of systems was performed. Pertinent positives are noted above. All other systems are negative. Vital Signs Last 8 Hrs Date Time Temp Pulse Resp B/P Pulse Ox O2 Delivery O2 Flow Rate FiO2 07/01/16 07:45 Room Air 07/01/16 07:10 36.3 75 17 148/76 96 Room Air I & O 24-Hour Column 07/01/16 08:00 Intake Total 721 ml Output Total 1700 ml Balance -979 ml Last Recorded Weight Weight (Kilograms): 83.300 Physical Exam General Appearance: no apparent distress Head: normocephalic, atraumatic Eyes: PERRL, EOMI Neck: no adenopathy Respiratory/Chest: lungs clear Cardiovascular: regular rate, rhythm Abdomen/GI: normal bowel sounds, non tender, soft Extremities/Musculoskelatal: + pertinent finding (trace bilateral LE edema. RLE appears erythematous in the pretibial area) Neurologic/Psych: alert, oriented x 3 Family History Patient reports no known family medical history. Social History Drug Use: none Marital Status: Housing Status: lives with family Occupation: retired Laboratory Results Past 24 Hours 07/01/16 07:18 07/01/16 07:18 Test 07/01/16 07:18 Red Blood Count 2.93 M/uL (4.2-5.4) Mean Corpuscular Volume 93.5 fL (80-100) Mean Corpuscular Hemoglobin 28.7 pg (25-34) Mean Corpuscular Hemoglobin Concent 30.7 g/dl (32-36) RDW Standard Deviation 64.9 fL (36.4-46.3) RDW Coefficient of Variation 19.0 % (11.5-14.5) Mean Platelet Volume 10.4 fL (7.4-10.4) Anion Gap 10.0 mmol/L (3-11) Est Creatinine Clear Calc Drug Dose 41.7 ml/min Estimated GFR () 54.9 Estimated GFR (Non- 47.4 BUN/Creatinine Ratio 4.9 (10-20) Calcium Level 8.3 mg/dl (8.5-10.1) Phosphorus Level 3.1 mg/dl (2.5-4.9) Albumin 1.9 gm/dl (3.4-5.0) Allergies Coded Allergies: Erythromycin (Verified Allergy, Intermediate, RASH, 06/17/16) Iodinated Diagnostic Agents (Verified Allergy, Intermediate, RASH, 06/17/16 ) Latex1 -Allergic Contact Dermititis (Verified Allergy, Mild, RASH, 06/17/16 ) Uncoded Allergies: ALL "RUBEN" (Allergy, Unknown, UNKNOWN, 11/13/08) Medications Current Inpatient Medications Medications (Trade) Dose Ordered Sig/Jose Route Start Time Stop Time Status Last Admin Dose Admin Acetaminophen (Tylenol Tab) 650 mg Q4H PRN PO 06/24/16 17:00 07/24/16 16:59 06/30/16 22:29 650 MG Polyethylene (Miralax Powder Packet) 17 gm DAILY PRN PO 06/24/16 17:00 07/24/16 16:59 Ondansetron HCl (Zofran Inj) 4 mg Q6H PRN IV 06/24/16 17:00 07/24/16 16:59 Levothyroxine Sodium (Synthroid Tab) 150 mcg DAILYBB PO 06/25/16 06:00 07/25/16 05:59 07/01/16 05:55 150 MCG Pantoprazole Sodium (Protonix Tab) 40 mg DAILY PO 06/25/16 09:00 07/25/16 08:59 07/01/16 09:16 40 MG Pentoxifylline (Trental Tab) 400 mg TID PO 06/24/16 21:00 07/24/16 20:59 07/01/16 09:15 400 MG Simvastatin (Zocor Tab) 40 mg DAILY PO 06/25/16 09:00 07/25/16 08:59 07/01/16 09:16 40 MG Oxycodone/ Acetaminophen (Percocet 5-325mg Tab) 1 tab Q4H PRN PO 06/25/16 02:30 07/09/16 02:29 06/25/16 02:41 1 TAB Polyethylene (Miralax Powder Packet) 17 gm DAILY@1500 PO 06/25/16 15:00 07/25/16 14:59 06/25/16 14:32 17 GM Heparin Sodium (Porcine) (Heparin Sq 5000 Unit/0.5ml) 5,000 unit Q12 SQ 06/29/16 21:00 07/29/16 20:59 06/30/16 20:57 5,000 UNIT Cephalexin Monohydrate (Keflex Cap) 500 mg BID PO 07/01/16 08:00 07/11/16 07:59 07/01/16 08:07 500 MG Ciprofloxacin (Cipro Tab) 500 mg BID PO 07/01/16 08:00 07/11/16 07:59 07/01/16 08:07 500 MG Impression (1) Hypernatremia (2) Cellulitis of left lower extremity (3) Acute kidney injury Mrs. Faust is an 80-year-old female with PVD, venous insufficiency and HTN who was admitted to [facility] for evaluation of a chronic left lower extremity wound. Hospitalization has been complicated by a persistent hypernatremia. Her free water deficit did improve with IV D5W. However serum sodium started to rise after the infusion was stopped. The patient does not endorse any anorexia or GI symptoms. She denies diarrhea. She is able to drink fluids without restriction. She often restricts her fluid intake due to urinary urgency. Recommendations HYPERNATREMIA: -- IVF stopped yesterday -- Patient limited free water intake due to concern over LE edema and urinary frequency -- UO was approx 3 L yesterday. Serum sodium is mildly elevated at 147. Will monitor. No h/o hypokalemia or hypercalcemia -- Urine osmolality is low. No evidence of osmotically active substance -- Encourage oral free water intake. Patient likely has insensible losses associated with high room temperature -- Monitor PRP ID: -- Most recent wound cx positive for Corynebacterium -- Patient has been transitioned to oral antibiotic therapy (Keflex & Cipro) -- Monitor for diarrhea ENDOCRINE: -- Random cortisol level was within normal limits
--- NOTE | 2016-07-01 13:09 | Infectious Disease Progress Nt ---
Progress Note Date of Service Jul 01, 2016. Subjective Pt evaluation today including: conversation w/ patient, physical exam, chart review, lab review, review of studies, review of inpatient medication list White blood cell count this morning was 6.28. Hemoglobin was 8.4. Her creatinine was 1.10 this morning. She was transitioned to p.o. Cipro and Keflex this morning. She was discontinued from IV antibiotics. She states that she so far is tolerating these antibiotics well. Her inpatient wound image was reviewed by myself today. I also spoke to Vanessa, the wound care nurse. The patient states that she is hoping to go home soon, but she has concerns about her family schedule. She states that her daughter has an appointment with Eduardo Escalona on Wednesday, and her also has multiple appointments. She is not sure when she would be able to get the wound Care Center. All Other Systems: Reviewed and Negative Medications Current Inpatient Medications Medications (Trade) Dose Ordered Sig/Jose Route Start Time Stop Time Status Last Admin Dose Admin Acetaminophen (Tylenol Tab) 650 mg Q4H PRN PO 06/24/16 17:00 07/24/16 16:59 06/30/16 22:29 650 MG Polyethylene (Miralax Powder Packet) 17 gm DAILY PRN PO 06/24/16 17:00 07/24/16 16:59 Ondansetron HCl (Zofran Inj) 4 mg Q6H PRN IV 06/24/16 17:00 07/24/16 16:59 Levothyroxine Sodium (Synthroid Tab) 150 mcg DAILYBB PO 06/25/16 06:00 07/25/16 05:59 07/01/16 05:55 150 MCG Pantoprazole Sodium (Protonix Tab) 40 mg DAILY PO 06/25/16 09:00 07/25/16 08:59 07/01/16 09:16 40 MG Pentoxifylline (Trental Tab) 400 mg TID PO 06/24/16 21:00 07/24/16 20:59 07/01/16 09:15 400 MG Simvastatin (Zocor Tab) 40 mg DAILY PO 06/25/16 09:00 07/25/16 08:59 07/01/16 09:16 40 MG Oxycodone/ Acetaminophen (Percocet 5-325mg Tab) 1 tab Q4H PRN PO 06/25/16 02:30 07/09/16 02:29 06/25/16 02:41 1 TAB Polyethylene (Miralax Powder Packet) 17 gm DAILY@1500 PO 06/25/16 15:00 07/25/16 14:59 06/25/16 14:32 17 GM Heparin Sodium (Porcine) (Heparin Sq 5000 Unit/0.5ml) 5,000 unit Q12 SQ 06/29/16 21:00 07/29/16 20:59 06/30/16 20:57 5,000 UNIT Cephalexin Monohydrate (Keflex Cap) 500 mg BID PO 07/01/16 08:00 07/11/16 07:59 07/01/16 08:07 500 MG Ciprofloxacin (Cipro Tab) 500 mg BID PO 07/01/16 08:00 07/11/16 07:59 07/01/16 08:07 500 MG Objective Vital Signs Date Time Temp Pulse Resp B/P Pulse Ox O2 Delivery O2 Flow Rate FiO2 07/01/16 07:45 Room Air 07/01/16 07:10 36.3 75 17 148/76 96 Room Air 07/01/16 00:00 37.2 68 16 118/65 95 Room Air 06/30/16 19:30 Room Air 06/30/16 15:36 36.6 84 18 131/60 95 Room Air Physical Exam General Appearance: no apparent distress, + obese Eyes: normal inspection, sclerae normal ENT: hearing grossly normal Neck: supple, trachea midline Respiratory/Chest: no respiratory distress, no accessory muscle use Extremities: + pertinent finding (Continued mild to moderate swelling of the left lower extremity. Mild tenderness of the left arch of the foot) Neurologic/Psychiatric: alert, normal mood/affect Skin: warm/dry, + pertinent finding (Continued mild peeling of the left lower extremity. No drainage on exam today. Continued mild to moderate erythema. Much improved.) Laboratory Results Last 24 Hours Test 07/01/16 07:18 White Blood Count 6.28 K/uL Red Blood Count 2.93 M/uL Hemoglobin 8.4 g/dL Hematocrit 27.4 % Mean Corpuscular Volume 93.5 fL Mean Corpuscular Hemoglobin 28.7 pg Mean Corpuscular Hemoglobin Concent 30.7 g/dl RDW Standard Deviation 64.9 fL RDW Coefficient of Variation 19.0 % Platelet Count 338 K/uL Mean Platelet Volume 10.4 fL Sodium Level 149 mmol/L Potassium Level 3.8 mmol/L Chloride Level 118 mmol/L Carbon Dioxide Level 21 mmol/L Anion Gap 10.0 mmol/L Blood Urea Nitrogen 5 mg/dl Creatinine 1.10 mg/dl Est Creatinine Clear Calc Drug Dose 41.7 ml/min Estimated GFR () 54.9 Estimated GFR (Non- 47.4 BUN/Creatinine Ratio 4.9 Random Glucose 88 mg/dl Calcium Level 8.3 mg/dl Phosphorus Level 3.1 mg/dl Albumin 1.9 gm/dl Assessment and Plan Patient with severe weeping cellulitis of the left lower extremity. Now improving with continued peeling skin, mild erythema, and tenderness. Most recent wound culture from wound care visit prior to admission is showing Corynebacterium only which is likely skin contamination. Patient has previously had Pseudomonas and MSSA from her LLE. She is currently on PO Keflex and Cipro. Recommend monitoring the patient for least 1 day on oral antibiotic therapy due to previous reaction. Otherwise, the patient likely will be okay for discharge from an ID perspective, but she will need a wound care follow-up soon after discharge. Plan: 1. Continue p.o. Cipro and Keflex 2. Will need a wound care follow-up PROVIDER ADDENDUM: Patient reviewed with Ms. Pate. Agree with above assessment.
[2016-07-01] MEDS: POLYETHYLENE (MIRALAX) 17 GM PACK PO SCH (13:57)
--- NOTE | 2016-07-01 14:26 | Family Medicine Progress Note ---
Progress Note Date of Service Jul 01, 2016. Subjective Pt evaluation today including: conversation w/ patient, physical exam, chart review, lab review, review of studies Pain: 0/10 PO Intake: WNL Voiding: no voiding problems Patient states she feels well this morning and thus far has had no reaction to the cipro dressing was changed with Vanessa and according to her redness has significantly improved has been up and walking around comfortably discussed potential for d/c tomorrow and patient is agreeable to this - we discussed potential for wound clinic follow up and she would prefer to arrange because she has to arrange a ride to the clinic questions and concerns were addressed Constitutional: No fever Eyes: No worsening of vision ENT: No hearing loss Respiratory: No cough, No dyspnea on exertion, No shortness of breath, No sputum, No wheezing Cardiovascular: No chest pain Abdomen: No constipation, No diarrhea, No nausea, No pain, No vomiting Musculoskeletal: No joint pain, No muscle pain Neurologic: + balance problems, No memory loss, No paralysis, No weakness Heme: No abnormal bleeding/bruising Endo: No fatigue Skin: + problem reported (improving cellulitis) Medications Medications Administered Medications (Trade) Dose Ordered Sig/Jose Route Start Time Stop Time Status Last Admin Dose Admin Acetaminophen (Tylenol Tab) 650 mg Q4H PRN PO 06/24/16 17:00 07/24/16 16:59 06/30/16 22:29 650 MG Levothyroxine Sodium (Synthroid Tab) 150 mcg DAILYBB PO 06/25/16 06:00 07/25/16 05:59 07/01/16 05:55 150 MCG Pantoprazole Sodium (Protonix Tab) 40 mg DAILY PO 06/25/16 09:00 07/25/16 08:59 07/01/16 09:16 40 MG Pentoxifylline (Trental Tab) 400 mg TID PO 06/24/16 21:00 07/24/16 20:59 07/01/16 13:57 400 MG Simvastatin 40 mg 40 mg DAILY PO 06/25/16 09:00 07/25/16 08:59 07/01/16 09:16 40 MG Sodium Chloride 1,000 ml @ 75 mls/hr [id number] IV 06/24/16 19:30 06/25/16 11:34 DC 06/25/16 08:56 75 MLS/HR Vancomycin HCl 1000 mg/Sodium Chloride 270 ml @ 125 mls/hr DAILY@2200 IV 06/25/16 22:00 06/28/16 08:50 DC 06/27/16 22:24 125 MLS/HR Vancomycin HCl 1750 mg/Sodium Chloride 535 ml @ 200 mls/hr TODAY@2030 ONCE IV 06/24/16 20:30 06/24/16 23:10 DC 06/24/16 22:33 200 MLS/HR Piperacillin Sod/ Tazobactam Sod 3.375 gm/Dextrose 115 ml @ 230 mls/hr TODAY@2030 ONCE IV 06/24/16 20:30 06/24/16 20:59 DC 06/24/16 22:33 230 MLS/HR Piperacillin Sod/ Tazobactam Sod/ Dextrose (Zosyn Iv/D5 100ml) 115 ml @ 28.75 mls/ hr Q8H IV 06/25/16 02:00 06/30/16 23:59 DC 06/30/16 18:11 28.75 MLS/HR Oxycodone/ Acetaminophen 1 tab 1 tab Q4H PRN PO 06/25/16 02:30 07/09/16 02:29 06/25/16 02:41 1 TAB Magnesium Sulfate 1 gm/Prmx 100 ml @ 100 mls/hr TODAY@1200,1300 IV 06/25/16 12:00 06/25/16 13:59 DC 06/25/16 13:39 100 MLS/HR Dextrose (D5W 1000ml) 1,000 ml @ 75 mls/hr [id number] IV 06/25/16 12:00 06/26/16 13:53 DC 06/26/16 01:12 75 MLS/HR Polyethylene (Miralax Powder Packet) 17 gm DAILY@1500 PO 06/25/16 15:00 07/25/16 14:59 06/25/16 14:32 17 GM Potassium Chloride 40 meq 40 meq NOW STAT PO 06/26/16 15:53 06/26/16 15:56 DC 06/26/16 16:27 40 MEQ Vancomycin HCl 900 mg/Sodium Chloride 268 ml @ 125 mls/hr DAILY@2200 IV 06/28/16 22:00 06/30/16 10:27 DC 06/29/16 21:58 125 MLS/HR Dextrose (D5W 1000ml) 1,000 ml @ 125 mls/hr Q8H IV 06/28/16 13:30 06/30/16 12:14 DC 06/30/16 05:01 125 MLS/HR Potassium Chloride (Klor-Con M10) 40 meq NOW STAT PO 06/29/16 07:32 06/29/16 07:35 DC 06/29/16 10:00 40 MEQ Heparin Sodium (Porcine) (Heparin Sq 5000 Unit/0.5ml) 5,000 unit Q12 SQ 06/29/16 21:00 07/29/16 20:59 06/30/16 20:57 5,000 UNIT Cephalexin Monohydrate (Keflex Cap) 500 mg BID PO 07/01/16 08:00 07/11/16 07:59 07/01/16 08:07 500 MG Ciprofloxacin (Cipro Tab) 500 mg BID PO 07/01/16 08:00 07/11/16 07:59 07/01/16 08:07 500 MG Objective Vital Signs Date Time Temp Pulse Resp B/P Pulse Ox O2 Delivery O2 Flow Rate FiO2 07/01/16 07:45 Room Air 07/01/16 07:10 36.3 75 17 148/76 96 Room Air 07/01/16 00:00 37.2 68 16 118/65 95 Room Air 06/30/16 19:30 Room Air 06/30/16 15:36 36.6 84 18 131/60 95 Room Air Physical Exam General Appearance: WD/WN, no apparent distress Eyes: normal inspection ENT: normal ENT inspection Neck: supple Respiratory/Chest: lungs clear, normal breath sounds, no respiratory distress, no accessory muscle use Cardiovascular: regular rate, rhythm, no murmur Abdomen: normal bowel sounds, non tender, soft Extremities: + pedal edema (L>R edema , cellulitis improving, some ongoing desquamation of the LE) Neurologic/Psychiatric: alert, normal mood/affect, oriented x 3 Skin: normal color, warm/dry, no rash Lymphatic: no adenopathy Laboratory Results Results Past 24 Hours Test 07/01/16 07:18 Range/Units White Blood Count 6.28 4.8-10.8 K/uL Red Blood Count 2.93 4.2-5.4 M/uL Hemoglobin 8.4 12.0-16.0 g/dL Hematocrit 27.4 37-47 % Mean Corpuscular Volume 93.5 80-100 fL Mean Corpuscular Hemoglobin 28.7 25-34 pg Mean Corpuscular Hemoglobin Concent 30.7 32-36 g/dl RDW Standard Deviation 64.9 36.4-46.3 fL RDW Coefficient of Variation 19.0 11.5-14.5 % Platelet Count 338 130-400 K/uL Mean Platelet Volume 10.4 7.4-10.4 fL Sodium Level 149 136-145 mmol/L Potassium Level 3.8 3.5-5.1 mmol/L Chloride Level 118 98-107 mmol/L Carbon Dioxide Level 21 21-32 mmol/L Anion Gap 10.0 3-11 mmol/L Blood Urea Nitrogen 5 7-18 mg/dl Creatinine 1.10 0.60-1.20 mg/dl Est Creatinine Clear Calc Drug Dose 41.7 ml/min Estimated GFR () 54.9 Estimated GFR (Non- 47.4 BUN/Creatinine Ratio 4.9 10-20 Random Glucose 88 70-99 mg/dl Calcium Level 8.3 8.5-10.1 mg/dl Phosphorus Level 3.1 2.5-4.9 mg/dl Albumin 1.9 3.4-5.0 gm/dl Assessment and Plan This is an 80 yo f that has been suffering from chronic LE leg wounds since January and has cultured pseudomonas in the past. She has been on multiple antibiotics and once off of abx the cellulitis will worsen. She was recently on levaquin and because of a skin rash she stopped the medicine on day 12 and after abrupt worsening she returned to the hospital for treatment. Was treated with vanco and zosyn and has now transitioned to cipro keflex and is tolerating. Also has a h/o CKD III, PAD, AAA - stable Left lower extremity Cellulitis with ulcerations most likely secondary to venous insuff/ PAD - most recent would culture- corynebacterium and most likely contaminant - Vanco and zosyn- d/c and now cipro/ keflex - ID consult - appreciate input - Wound care consult appreciated -continue daily dressing changes Constipation: resolved - Miralax daily H/O GI Bleeding: June 2015 - Will be cautious with NSAIDs - Protonix daily LOLA on background of CKD III- resolved - Cr back at 1.1 after IVFs and holding lasix (has been off cozaar since previous admission) - Continue to avoid nephrotoxins Hypernatremia: - 149 today; review of record shows chronic high normal to high Na+ level - check AM cortisol to look for adrenal insufficiency s cause of hypernatremia-- > normal at 12 -continue to encourage free water intake- patient has been compliant and has been improving -Consult to Nephro appreciated -check Ur Osm - 122 (L) Hypokalemia/Hypomagnesemia: -follow PRP- replete prn Chronic back pain - Frequent repositioning; Heat packs; Tylenol PRN. - Patient needs continued PT/OT sessions Infrarenal AAA, PAD - AAA has been stable, currently measuring 5.0 cm. 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 Discussed with Dr. Martinez and agree with findings and plan as documented in the note. 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 she notes it definitely looks much better than her last assessment PO abx without problems thus far vitals noted, nad, breathing unlabored, leg w dull redness no erythema. wounds appear in healing venous insufficiency w wound infection - improving. if ongoing improvement w PO abx and no ADRs, anticipate home tomorrow otherwise as above Continued [facility] stay due to: other Discharge planning: uncertain
[2016-07-01 15:45] VITALS: BP 120/72; PULSE 89; TEMP 37.1; O2SAT 94
[2016-07-01 22:58] VITALS: BP 134/71; PULSE 90; TEMP 36.8; O2SAT 94
[2016-07-02] MEDS: LEVOTHYROXINE 150 MCG TAB PO SCH (05:35)
[2016-07-02 06:46] LABS: HEMATOCRIT 26.4 % (37-47); MEAN CELL VOLUME 91.3 fL (80-100); MEAN CORPUSCULAR HEMOGLOBIN 28.7 pg (25-34); MEAN CORPUSCULAR HGB CONC 31.4 g/dl (32-36); MEAN PLATELET VOLUME 10.7 fL (7.4-10.4); PLATELET COUNT 341 K/uL (130-400); RED BLOOD COUNT 2.89 M/uL (4.2-5.4)
[2016-07-02 07:10] VITALS: BP 144/68; PULSE 81; TEMP 36.9; O2SAT 92
[2016-07-02 07:15] LABS: BUN/CREATININE RATIO 7.7 (10-20); CALCIUM 8.3 mg/dl (8.5-10.1); POTASSIUM 3.6 mmol/L (3.5-5.1)
[2016-07-02] MEDS ORDERED: KFL500 PO (07:26)
[2016-07-02] MEDS ORDERED: CPR500 PO (07:26)
[2016-07-02] MEDS: HEPARIN SOD 5000 UNIT/0.5 ML CARP SQ SCH (09:00)
[2016-07-02] MEDS: CIPROFLOXACIN 500 MG TAB PO SCH (09:05)
[2016-07-02] MEDS: PANTOprazole SOD 40 MG TAB PO SCH (09:05)
[2016-07-02] MEDS: PENTOXIFYLLINE 400MG EXT REL TAB PO SCH ×2 (09:05→14:22)
[2016-07-02] MEDS: SIMVASTATIN 40 MG TAB PO SCH (09:05)
[2016-07-02] MEDS: CEPHALEXIN MONOHYDRATE 500 MG CAP PO SCH (09:05)
--- NOTE | 2016-07-02 09:21 | Nephrology Progress Note ---
Nephrology Progress Note Date of Service Jul 02, 2016. Chief Complaint Follow up evaluation of hypernatremia Subjective Mrs. Faust was seen & examined in her hospital room this morning. She was admitted to the hospital for evaluation of an infected bullous lesion involving her left leg. Initial cultures obtained at the wound clinic were positive for Pseudomonas. Most recent cultures are positive only for Corynebacterium. The patient currently denies fever. She has been experiencing loose stool. The patient had anemia. She was found to have blood in her stool 06/23. She declined colonoscopy due to her age. She feels that the bleeding was related to internal hemorrhoids and diverticulosis. She currently denies abdominal pain. Mrs. Faust has hypernatremia. Serum sodium has been 149 - 151 mmol/L. The patient denies polyuria. She denies diarrhea. She has been trying to force herself to drink 2 L water each day. The patient voices no new medical concerns at this time. She hopes to be discharged to home soon. Review of Systems Constitutional: No fever Cardiovascular: No chest pain Respiratory: No dyspnea at rest Abdomen: No diarrhea, No pain Genitourinary - Female: No dysuria, No urinary frequency Extremities: + problem reported (LLE redness and discomfort), No leg edema A complete review of systems was performed. Pertinent positives are noted above. All other systems are negative. Vital Signs Last 8 Hrs Date Time Temp Pulse Resp B/P Pulse Ox O2 Delivery O2 Flow Rate FiO2 07/02/16 07:10 36.9 81 19 144/68 92 Room Air I & O 24-Hour Column 07/02/16 08:00 Intake Total 740 ml Output Total 750 ml Balance -10 ml Last Recorded Weight Weight (Kilograms): 83.300 Physical Exam General Appearance: no apparent distress Head: atraumatic Eyes: PERRL Neck: no adenopathy, no JVD Respiratory/Chest: lungs clear, no respiratory distress Cardiovascular: regular rate, rhythm Abdomen/GI: normal bowel sounds, non tender, soft Extremities/Musculoskelatal: no pedal edema, + pertinent finding (left lower leg wrapped with kerlex gauze) Neurologic/Psych: alert, oriented x 3 Family History Patient reports no known family medical history. Social History Drug Use: none Marital Status: Housing Status: lives with family Occupation: retired Laboratory Results Past 24 Hours 07/02/16 06:00 07/02/16 06:00 Test 07/02/16 06:00 Red Blood Count 2.89 M/uL (4.2-5.4) Mean Corpuscular Volume 91.3 fL (80-100) Mean Corpuscular Hemoglobin 28.7 pg (25-34) Mean Corpuscular Hemoglobin Concent 31.4 g/dl (32-36) RDW Standard Deviation 63.1 fL (36.4-46.3) RDW Coefficient of Variation 18.9 % (11.5-14.5) Mean Platelet Volume 10.7 fL (7.4-10.4) Anion Gap 11.0 mmol/L (3-11) Est Creatinine Clear Calc Drug Dose 45.1 ml/min Estimated GFR () 61.2 Estimated GFR (Non- 52.8 BUN/Creatinine Ratio 7.7 (10-20) Calcium Level 8.3 mg/dl (8.5-10.1) Allergies Coded Allergies: Erythromycin (Verified Allergy, Intermediate, RASH, 06/17/16) Iodinated Diagnostic Agents (Verified Allergy, Intermediate, RASH, 06/17/16 ) Latex1 -Allergic Contact Dermititis (Verified Allergy, Mild, RASH, 06/17/16 ) Uncoded Allergies: ALL "RUBEN" (Allergy, Unknown, UNKNOWN, 11/13/08) Medications Current Inpatient Medications Medications (Trade) Dose Ordered Sig/Jose Route Start Time Stop Time Status Last Admin Dose Admin Acetaminophen (Tylenol Tab) 650 mg Q4H PRN PO 06/24/16 17:00 07/24/16 16:59 06/30/16 22:29 650 MG Polyethylene (Miralax Powder Packet) 17 gm DAILY PRN PO 06/24/16 17:00 07/24/16 16:59 Ondansetron HCl (Zofran Inj) 4 mg Q6H PRN IV 06/24/16 17:00 07/24/16 16:59 Levothyroxine Sodium (Synthroid Tab) 150 mcg DAILYBB PO 06/25/16 06:00 07/25/16 05:59 07/02/16 05:35 150 MCG Pantoprazole Sodium (Protonix Tab) 40 mg DAILY PO 06/25/16 09:00 07/25/16 08:59 07/02/16 09:05 40 MG Pentoxifylline (Trental Tab) 400 mg TID PO 06/24/16 21:00 07/24/16 20:59 07/02/16 09:05 400 MG Simvastatin (Zocor Tab) 40 mg DAILY PO 06/25/16 09:00 07/25/16 08:59 07/02/16 09:05 40 MG Oxycodone/ Acetaminophen (Percocet 5-325mg Tab) 1 tab Q4H PRN PO 06/25/16 02:30 07/09/16 02:29 06/25/16 02:41 1 TAB Polyethylene (Miralax Powder Packet) 17 gm DAILY@1500 PO 06/25/16 15:00 07/25/16 14:59 06/25/16 14:32 17 GM Heparin Sodium (Porcine) (Heparin Sq 5000 Unit/0.5ml) 5,000 unit Q12 SQ 06/29/16 21:00 07/29/16 20:59 07/01/16 21:13 5,000 UNIT Cephalexin Monohydrate (Keflex Cap) 500 mg BID PO 07/01/16 08:00 07/11/16 07:59 07/02/16 09:05 500 MG Ciprofloxacin (Cipro Tab) 500 mg BID PO 07/01/16 08:00 07/11/16 07:59 07/02/16 09:05 500 MG Impression (1) Hypernatremia (2) Cellulitis of left lower extremity (3) Acute kidney injury Mrs. Faust is an 80-year-old female with PVD, venous insufficiency and HTN who was admitted to [facility] for evaluation of a chronic left lower extremity wound. Hospitalization has been complicated by a persistent hypernatremia. Her free water deficit did improve with IV D5W. However serum sodium started to rise after the infusion was stopped. The patient does not endorse any anorexia or GI symptoms. She denies diarrhea. She is able to drink fluids without restriction. She often restricts her fluid intake due to urinary urgency. Recommendations HYPERNATREMIA: -- Patient has limited free water intake due to concern over LE edema and urinary frequency -- IVF discontinued. UO has dropped indicating appropriate urinary concentrating ability -- Serum sodium is mildly improved. Patient was encouraged to maintain 2 - 3 L free water intake per day -- If patient is discharged to home serum sodium can be monitored by PCP ID: -- Most recent wound cx positive for Corynebacterium -- Patient has been transitioned to oral antibiotic therapy (Keflex & Cipro) -- Monitor for diarrhea ENDOCRINE: -- Random cortisol level was within normal limits
--- NOTE | 2016-07-02 11:02 | Discharge Instructions ---
Discharge Instructions Admission Reason for Admission: Lower Left Extremity Cellulitis Discharge Discharge Diagnosis / Problem: cellulitis Discharge Goals Goal(s): Improve function, Increase independence, Improve disease control Activity Recommendations Activity Limitations: as noted below Exercise/Sports Limitations: as tolerated . Instructions / Follow-Up Instructions / Follow-Up You were admitted to the hospital because of worsening cellulitis after you discontinued the Levaquin from a drug reaction. You were treated in the hospital with the antibiotics Zosyn and Vanco. We also cultured your wound however there was only contaminant noted on the culture. Once we were able to better control the cellulitis we transitioned you to Cipro and Keflex and kept you overnight to make sure the cellulitis was still improving. As you tolerated the medications and there was ongoing improvement we shall be sending you home with these medications to complete 9 more days of treatment. I did speak with Vanessa and we will be sending you home with some Adaptic and when you are reevaluated next week they will discuss future use of it. You sodium was also elevated while you were in the hospital. Nephrology was consulted and they felt like it was from "insensible losses". Meaning you were losing some water from your body from things we can not control such as sweating. We recommend close follow up with your PCP next week and a BMP as well to recheck this level. Continue to drink lots of water! 1. Continue Cipro and Keflex for 9 more days 2. Follow up with wound clinic early next week 3. You will receive some Adaptic to bring home with you for dressing changes 4. Please follow up with PCP beginning of next week and recheck sodium levels 5. Drink lots of water! Current Hospital Diet Patient's current hospital diet: Diabetes Type 2 Diet Discharge Diet Recommended Diet: Low Sodium Diet (2gm Na) Pending Studies Studies pending at discharge: no Laboratory Results Results Past 24 Hours Test 07/02/16 06:00 Range/Units White Blood Count 7.10 4.8-10.8 K/uL Red Blood Count 2.89 4.2-5.4 M/uL Hemoglobin 8.3 12.0-16.0 g/dL Hematocrit 26.4 37-47 % Mean Corpuscular Volume 91.3 80-100 fL Mean Corpuscular Hemoglobin 28.7 25-34 pg Mean Corpuscular Hemoglobin Concent 31.4 32-36 g/dl RDW Standard Deviation 63.1 36.4-46.3 fL RDW Coefficient of Variation 18.9 11.5-14.5 % Platelet Count 341 130-400 K/uL Mean Platelet Volume 10.7 7.4-10.4 fL Sodium Level 148 136-145 mmol/L Potassium Level 3.6 3.5-5.1 mmol/L Chloride Level 116 98-107 mmol/L Carbon Dioxide Level 21 21-32 mmol/L Anion Gap 11.0 3-11 mmol/L Blood Urea Nitrogen 8 7-18 mg/dl Creatinine 1.00 0.60-1.20 mg/dl Est Creatinine Clear Calc Drug Dose 45.1 ml/min Estimated GFR () 61.2 Estimated GFR (Non- 52.8 BUN/Creatinine Ratio 7.7 10-20 Random Glucose 86 70-99 mg/dl Calcium Level 8.3 8.5-10.1 mg/dl Medical Emergencies . Who to Call and When: Medical Emergencies: If at any time you feel your situation is an emergency, please call 911 immediately. . Non-Emergent Contact Non-Emergency issues call your: Primary Care Provider Call Non-Emergent contact if: temperature is above 101.5, your pain is not controlled, your pain is worsening, wound has increased drainage, wound has increased redness, wound has increased pain . . "Provider Documentation" section prepared by Thuy Martinez. VTE Core Measure Inpt VTE Proph given/why not?: Unfractionated heparin SQ, SCD's
--- NOTE | 2016-07-02 11:08 | Discharge Summary ---
Discharge Summary Admission Date: Jun 24, 2016 at 15:35 Discharge Date: Jul 02, 2016 Discharge Disposition: Home Principal Diagnosis: Cellulitis (Thuy Martinez MD) Medication Reconciliation New Medications: Cephalexin Monohydrate (Cephalexin) 500 Mg Cap 500 MG PO BID for 9 Days, #18 CAP Ciprofloxacin (Ciprofloxacin HCl) 500 Mg Tab 500 MG PO BID for 9 Days, #18 TAB Continued Medications: Furosemide (Lasix) 20 Mg Tab 1 TAB PO DAILY for 90 Days, #90 TAB 1 Refill Levothyroxine Sodium (Synthroid) 150 Mcg Tab 150 MCG PO DAILY Ondansetron Hcl (Zofran) 4 Mg Tab 4 MG PO PRN for Nausea, TAB Pantoprazole Sodium (Protonix) 40 Mg Tab 1 TAB PO DAILY for Bleeding for 30 Days, #30 TAB 5 Refills Pentoxifylline (Trental) 400 Mg Tabcr 400 MG PO TID Simvastatin (Zocor) 40 Mg Tab 40 MG PO DAILY Discharge Exam Patient continues to have improvement in the cellulitis We discussed discharge and all questions and concerns were addressed Patient was agreeable with plan Review of Systems: Constitutional: No fever Eyes: No worsening of vision ENT: No hearing loss Respiratory: No cough, No dyspnea at rest, No dyspnea on exertion, No shortness of breath, No sputum, No wheezing Cardiovascular: No chest pain Abdomen: No constipation, No diarrhea, No nausea, No pain, No vomiting Musculoskeletal: No joint pain, No muscle pain Neurologic: + balance problems, No numbness/tingling Psychiatric: No depression symptoms Endocrine: No fatigue Integumentary: No rash (Thuy Martinez MD) Hospital Course This is an 80 yo f that has been suffering from chronic LE leg wounds since January and has cultured pseudomonas in the past. She has been on multiple antibiotics and once off of abx the cellulitis will worsen. She was recently on levaquin and because of a skin rash she stopped the medicine on day 12 and after abrupt worsening she returned to the hospital for treatment. Was treated with vanco and zosyn and has now transitioned to cipro keflex and is tolerating. Also has a h/o CKD III, PAD, AAA - stable. Left lower extremity Cellulitis with ulcerations most likely secondary to venous insuff/ PAD- improving - most recent would culture- corynebacterium and most likely contaminant - Vanco and zosyn- d/c and now cipro/ keflex- plan is to have 9 more days of antibiotics - to follow up with PCP early next week and wound clinic to reevaluate - was sent home with Adaptic for dressing changes LOLA on background of CKD III- resolved - recheck BMP in 1 week Hypernatremia: ; review of record shows chronic high normal to high Na+ level - check AM cortisol to look for adrenal insufficiency s cause of hypernatremia-- > 12 -continue to encourage free water intake- patient has been compliant and has been improving -Consult to Nephro- the believe this is related to insensible losses - Ur Osm - 122 (L) - Recommend recheck BMP in 1 week Hypokalemia/Hypomagnesemia: -Recheck Mg and BMP in one week DVT prophylaxis- received - heparin 5000 bid - SCD to right leg Total Time Spent: Less than 30 minutes This includes examination of the patient, discharge planning, medication reconciliation, and communication with other providers. (Thuy Martinez MD) Resident Physician Supervision Note: I interviewed and examined the patient. Discussed with Dr. Martinez and agree with findings and plan as documented in the note. Any exceptions or clarifications are listed here: None Documented By: Alex Garcia leg looking better and feeling better. feels up to going home. notes she's tolerating PO abx well. expresses intention to adhere to treatment. vitals noted, nad, breathing unlabored. leg without erythema. venous stasis w cellulitis - failed outpt treatment (?adherence to Rx'd treatment, also did apparently have unforeseen ADRs to prior PO abx) - now clearly improving, stable for home - ongoing cipro and keflex as above - and ongoing outpt wound clinic f/u. Total Time Spent: Less than 30 minutes (Alex Garcia D.O.) Discharge Instructions Please refer to the electronic Patient Visit Report (Discharge Instructions) for additional information. (Thuy Martinez MD) Additional Copies To Aurelio Chew M.D.
--- NOTE | 2016-07-02 11:27 | Infectious Disease Progress Nt ---
Progress Note Date of Service Jul 02, 2016. Subjective Pt evaluation today including: conversation w/ patient, physical exam, chart review, lab review, review of studies, review of inpatient medication list Patient is feeling well this morning. She states that she has some itchy dry skin on her arms and upper thighs but has not developed rash otherwise. She continued to move her bowels well. She is tolerating current PO abx well. She states that she is anticipating follow up with the wound care center. She does not feel it necessary to make an appointment with Infectious Disease because it is inconvenient for her. WBC count this morning was 7.10. Her Hgb was 8.3. Creatinine was 1.00. No new micro. Wound images reviewed again this morning with Dr. Villeda. All Other Systems: Reviewed and Negative Medications Current Inpatient Medications Medications (Trade) Dose Ordered Sig/Jose Route Start Time Stop Time Status Last Admin Dose Admin Acetaminophen (Tylenol Tab) 650 mg Q4H PRN PO 06/24/16 17:00 07/24/16 16:59 06/30/16 22:29 650 MG Polyethylene (Miralax Powder Packet) 17 gm DAILY PRN PO 06/24/16 17:00 07/24/16 16:59 Ondansetron HCl (Zofran Inj) 4 mg Q6H PRN IV 06/24/16 17:00 07/24/16 16:59 Levothyroxine Sodium (Synthroid Tab) 150 mcg DAILYBB PO 06/25/16 06:00 07/25/16 05:59 07/02/16 05:35 150 MCG Pantoprazole Sodium (Protonix Tab) 40 mg DAILY PO 06/25/16 09:00 07/25/16 08:59 07/02/16 09:05 40 MG Pentoxifylline (Trental Tab) 400 mg TID PO 06/24/16 21:00 07/24/16 20:59 07/02/16 09:05 400 MG Simvastatin (Zocor Tab) 40 mg DAILY PO 06/25/16 09:00 07/25/16 08:59 07/02/16 09:05 40 MG Oxycodone/ Acetaminophen (Percocet 5-325mg Tab) 1 tab Q4H PRN PO 06/25/16 02:30 07/09/16 02:29 06/25/16 02:41 1 TAB Polyethylene (Miralax Powder Packet) 17 gm DAILY@1500 PO 06/25/16 15:00 07/25/16 14:59 06/25/16 14:32 17 GM Heparin Sodium (Porcine) (Heparin Sq 5000 Unit/0.5ml) 5,000 unit Q12 SQ 06/29/16 21:00 07/29/16 20:59 07/01/16 21:13 5,000 UNIT Cephalexin Monohydrate (Keflex Cap) 500 mg BID PO 07/01/16 08:00 07/11/16 07:59 07/02/16 09:05 500 MG Ciprofloxacin (Cipro Tab) 500 mg BID PO 07/01/16 08:00 07/11/16 07:59 07/02/16 09:05 500 MG Objective Vital Signs Date Time Temp Pulse Resp B/P Pulse Ox O2 Delivery O2 Flow Rate FiO2 07/02/16 08:30 Room Air 07/02/16 07:10 36.9 81 19 144/68 92 Room Air 07/01/16 23:30 Room Air 07/01/16 22:58 36.8 90 14 134/71 94 Room Air 07/01/16 16:00 Room Air 07/01/16 15:45 37.1 89 16 120/72 94 Room Air Physical Exam General Appearance: no apparent distress, + obese Eyes: normal inspection, sclerae normal ENT: hearing grossly normal Neck: supple, trachea midline Respiratory/Chest: no respiratory distress, no accessory muscle use Cardiovascular: regular rate, rhythm Extremities: + pertinent finding (left lower extremity with continued mild edema. Erythema and tenderness improved ) Neurologic/Psychiatric: alert, normal mood/affect Skin: warm/dry, + pertinent finding (dry skin noted on bilateral arms and upper legs. No real rash noted. No rash on chest, back, or face.) Laboratory Results Last 24 Hours Test 07/02/16 06:00 White Blood Count 7.10 K/uL Red Blood Count 2.89 M/uL Hemoglobin 8.3 g/dL Hematocrit 26.4 % Mean Corpuscular Volume 91.3 fL Mean Corpuscular Hemoglobin 28.7 pg Mean Corpuscular Hemoglobin Concent 31.4 g/dl RDW Standard Deviation 63.1 fL RDW Coefficient of Variation 18.9 % Platelet Count 341 K/uL Mean Platelet Volume 10.7 fL Sodium Level 148 mmol/L Potassium Level 3.6 mmol/L Chloride Level 116 mmol/L Carbon Dioxide Level 21 mmol/L Anion Gap 11.0 mmol/L Blood Urea Nitrogen 8 mg/dl Creatinine 1.00 mg/dl Est Creatinine Clear Calc Drug Dose 45.1 ml/min Estimated GFR () 61.2 Estimated GFR (Non- 52.8 BUN/Creatinine Ratio 7.7 Random Glucose 86 mg/dl Calcium Level 8.3 mg/dl Assessment and Plan Patient with severe weeping cellulitis of the left lower extremity. Patient is improving. She is currently on PO Keflex and Cipro. She should continue these antibiotics for at least 2 more weeks pending further improvement. She can follow up with ID at her convenience or call with concerns. She should continue wound care follow up. Plan: 1. Continue p.o. Cipro and Keflex x 2 weeks 2. Wound care PROVIDER ADDENDUM: Patient reviewed with Ms. Pate. Agree with above assessment.
[2016-07-02 13:36] VITALS: BP 144/68; PULSE 81; TEMP 36.9; O2SAT 92
[2016-07-02] MEDS: POLYETHYLENE (MIRALAX) 17 GM PACK PO SCH (14:23)
== END 2016-07-02 15:50 | disposition home or self-care (01) | DRG 603 ==
LOC: UNDOADMIN 15:35 → C.MSW 15:35
PROVIDERS: ADMIT Hospitalist; ATTEND Family Medicine
DX: L03.116 Cellulitis of left lower limb (principal); L97.929 Non-pressure chronic ulcer of unspecified part of left lower leg with unspecified severity; D62 Acute posthemorrhagic anemia; N17.9 Acute kidney failure, unspecified; E87.0 Hyperosmolality and hypernatremia; R62.7 Adult failure to thrive; R63.4 Abnormal weight loss; E83.42 Hypomagnesemia; E66.01 Morbid (severe) obesity due to excess calories; K59.00 Constipation, unspecified; M54.9 Dorsalgia, unspecified; K64.9 Unspecified hemorrhoids; N18.3 Chronic kidney disease, stage 3 (moderate); I12.9 Hypertensive chronic kidney disease with stage 1 through stage 4 chronic kidney disease, or unspecified chronic kidney disease; I73.9 Peripheral vascular disease, unspecified; I87.2 Venous insufficiency (chronic) (peripheral); I71.4 Abdominal aortic aneurysm, without rupture; Z87.891 Personal history of nicotine dependence; Z79.899 Other long term (current) drug therapy; I87.8 Other specified disorders of veins; I89.0 Lymphedema, not elsewhere classified; B95.8 Unspecified staphylococcus as the cause of diseases classified elsewhere; E78.5 Hyperlipidemia, unspecified; I35.0 Nonrheumatic aortic (valve) stenosis; E11.9 Type 2 diabetes mellitus without complications; Z79.82 Long term (current) use of aspirin

== ENCOUNTER → 2016-07-16 | Outpatient (CLI) | payer OTHER ==
[~2016-07-16] MED LIST changes: +CFP2IV IV
[2016-07-16 18:16] LABS: BASO % 0.5 %; BASO ABS # 0.05 K/uL (0-0.2); COMPLETE YES; EOS % 2.4 %; IG% 0.2 %; LYMPH ABS # 1.19 K/uL (1.2-3.4); MEAN CELL VOLUME 92.7 fL (80-100); MEAN CORPUSCULAR HEMOGLOBIN 28.9 pg (25-34); MEAN CORPUSCULAR HGB CONC 31.2 g/dl (32-36); MONO % 12.6 %; NEUT % 72.3 %; PLATELET COUNT 346 K/uL (130-400); RED BLOOD COUNT 3.56 M/uL (4.2-5.4); WHITE BLOOD COUNT 9.88 K/uL (4.8-10.8)
[2016-07-16 18:28] LABS: BLOOD UREA NITROGEN 33 mg/dl (7-18); BUN/CREATININE RATIO 14.8 (10-20); CALCIUM 8.8 mg/dl (8.5-10.1); CARBON DIOXIDE 26 mmol/L (21-32); CHLORIDE 110 mmol/L (98-107); GLUCOSE 143 mg/dl (70-99); POTASSIUM 3.7 mmol/L (3.5-5.1); SODIUM 146 mmol/L (136-145)
[2016-07-16 18:39] LABS: ALB/GLOB RATIO 0.7 (0.9-2); ALKALINE PHOSPHATASE 82 U/L (45-117); ALT/SGPT 15 U/L (12-78); AST/SGOT 13 U/L (15-37); FERRITIN 156.6 ng/ml (8.0-388.0); THYROID STIMULATING HORMONE 0.106 uIu/ml (0.300-4.500); TOTAL IRON BINDING CAPACITY 227 mcg/dl (250-450)
--- NOTE | 2016-07-21 09:06 | CODING QUERY MEDICAL NECESSITY ---
SUPPORTING DIAGNOSIS NEEDED A supporting diagnosis is required for the test/procedure performed on this patient in order for us to be reimbursed by the patient's insurance. Please provide a supporting diagnosis for the following test/procedure listed below next to the test name along with your signature. *If there is no additional diagnosis for this patient that would support the following test/procedure please document that below next to the test/procedure. Test(s)/Procedure(s) that require a supporting diagnosis: * VITAMIN D 25-HYDROXY DIAGNOSIS: * DOS: 07/16/16 Provider Signature: Date: Thank you Lawanda Choudhary Health Information Management Once completed, please kindly fax back to [phone] For questions please call [phone]
== END | disposition home or self-care (01) ==
LOC: C.LABBFT 12:53
PROVIDERS: ATTEND Internal Medicine
DX: D64.9 Anemia, unspecified (principal); E88.09 Other disorders of plasma-protein metabolism, not elsewhere classified; E55.9 Vitamin D deficiency, unspecified

== ENCOUNTER 2016-07-28 11:13 | Inpatient (IN) | payer OTHER ==
[~2016-07-28] VITALS: Ht 160 cm; Wt 78.6 kg
[~2016-07-28 11:13] MED LIST changes: -CFP2IV IV
[2016-07-28] MEDS ORDERED: ONDANSETRON INJ 2 MG/ML 2 ML VIAL IV PRN (12:15)
[2016-07-28 12:40] VITALS: BP 118/68; PULSE 91; TEMP 36.4; O2SAT 97; Ht 160 cm; Wt 78.6 kg
[2016-07-28 12:58] LABS: BASO % 0.3 %; BASO ABS # 0.03 K/uL (0-0.2); COMPLETE YES; EOS % 5.3 %; HEMATOCRIT 32.5 % (37-47); IG% 0.2 %; LYMPH % 12.3 %; LYMPH ABS # 1.17 K/uL (1.2-3.4); MEAN CELL VOLUME 90.8 fL (80-100); MEAN CORPUSCULAR HEMOGLOBIN 28.5 pg (25-34); MEAN CORPUSCULAR HGB CONC 31.4 g/dl (32-36); MEAN PLATELET VOLUME 11.1 fL (7.4-10.4); MONO % 10.7 %; NEUT % 71.2 %; PLATELET COUNT 303 K/uL (130-400); RED BLOOD COUNT 3.58 M/uL (4.2-5.4); WHITE BLOOD COUNT 9.54 K/uL (4.8-10.8)
[2016-07-28] MEDS: CEFEPIME IV 1,000 MG in DEXTROSE 5% 100ML 100 ML IV SCH (13:17)
[2016-07-28 13:23] LABS: BLOOD UREA NITROGEN 32 mg/dl (7-18); BUN/CREATININE RATIO 23.1 (10-20); CALCIUM 8.6 mg/dl (8.5-10.1); CARBON DIOXIDE 26 mmol/L (21-32); CHLORIDE 114 mmol/L (98-107); GLUCOSE 96 mg/dl (70-99); POTASSIUM 3.6 mmol/L (3.5-5.1); SODIUM 148 mmol/L (136-145)
[2016-07-28] MEDS: PENTOXIFYLLINE 400MG EXT REL TAB PO SCH ×2 (14:30→20:37)
[2016-07-28 15:38] VITALS: BP 105/66; PULSE 89; TEMP 36.8; O2SAT 98
--- NOTE | 2016-07-28 16:45 | History and Physical ---
History & Physical Date & Time of Service: Jul 28, 2016 at 16:36 Chief Complaint: Left Leg Cellulitis Primary Care Physician: Aurelio Chew M.D. History of Present Illness Source: patient, hospital records 81 yo female with ongoing issues with PAD and leg wounds that have been going on since January 2016. She has been followed by ID and wound care and has been on numerous antibiotic regimens with allergic reactions to most antibiotics. Of note, she has most recently been on Keflex and Cipro after a wound culture grew out Pseudomonas. She has also been on Levaquin and Bactrim in the past with allergic reactions in the form of a rash. She has been feeling well, no fevers, no chills. She is eating and drinking well. She was seen by Dr. Neil with ID today and found to have evidence of cellulitis with the wounds and was referred for inpatient care. Past Medical/Surgical History CKD stage III HTN Peripheral vascular disease Venous insufficiency Chronic leg wounds AAA - 5cm GERD Neuropathy Family History Patient reports no known family medical history. AAA, brain aneurysm, anemia Social History Smoking Status: Former Smoker Drug Use: none Marital Status: Housing status: lives with family Occupational Status: retired Multi-Drug Resistant Organisms History of MDRO: No Allergies Coded Allergies: Erythromycin (Verified Allergy, Intermediate, RASH, 06/17/16) Iodinated Diagnostic Agents (Verified Allergy, Intermediate, RASH, 06/17/16 ) Latex1 -Allergic Contact Dermititis (Verified Allergy, Mild, RASH, 06/17/16 ) Uncoded Allergies: ALL "RUBEN" (Allergy, Unknown, UNKNOWN, 11/13/08) Home Medications Scheduled Furosemide (Lasix), 1 TAB PO DAILY Levothyroxine Sodium (Synthroid), 150 MCG PO DAILY Pantoprazole Sodium (Protonix), 1 TAB PO DAILY Pentoxifylline (Trental), 400 MG PO TID Simvastatin (Zocor), 40 MG PO DAILY Scheduled PRN Ondansetron Hcl (Zofran), 4 MG PO for Nausea Review of Systems Constitutional: No chills, No fatigue, No fever, No problem reported, No sweats , No weakness, No weight loss ENT: No dental problems, No hearing loss, No nasal symptoms, No problem reported, No sore throat, No tinnitus, No trouble swallowing, No unusual epistaxis Respiratory: No cough, No dyspnea at rest, No dyspnea on exertion, No hemoptysis, No problem reported, No shortness of breath, No sputum, No wheezing Cardiovascular: + edema, No PND, No chest pain, No claudication, No orthopnea, No palpitations, No problem reported Abdomen: No GI bleeding, No constipation, No diarrhea, No nausea, No pain, No problem reported, No vomiting Musculoskeletal: No calf pain, No joint pain, No muscle pain, No problem reported, No swelling Genitourinary - Female: No dysuria, No urinary frequency, No urinary incontinence, No urinary retention, No urinary urgency Neurologic: + weakness, No balance problems, No memory loss, No numbness/ tingling, No paralysis, No problem reported, No vertigo Psychiatric: No anhedonism, No anxiety, No depression symptoms, No insomnia, No problem reported, No substance abuse Endocrine: No excessive thirst, No excessive urination, No fatigue, No problem reported Hematologic / Lymphatic: No abnormal bleeding/bruising, No clotting problems, No night sweats, No problem reported, No swollen lymph nodes Integumentary: + color change (redness in legs), + rash, No itch, No new/ changing skin lesions Allergic / Immunologic: No environmental allergies, No food allergies, No frequent infections, No hives, No pet sensitivities, No poor healing, No problem reported, No prolonged convalescence, No seasonal allergies Physical Exam Vital Signs Date Time Temp Pulse Resp B/P Pulse Ox O2 Delivery O2 Flow Rate FiO2 07/28/16 15:38 36.8 89 16 105/66 98 Room Air 07/28/16 12:40 97 Room Air 07/28/16 12:40 36.4 91 18 118/68 97 Room Air General Appearance: WD/WN, no apparent distress Head: normocephalic, atraumatic Eyes: normal inspection, EOMI, sclerae normal ENT: normal ENT inspection, hearing grossly normal, pharynx normal Neck: supple, no adenopathy, no JVD, trachea midline Respiratory/Chest: chest non-tender, lungs clear, normal breath sounds, no respiratory distress, no accessory muscle use Cardiovascular: regular rate, rhythm, no edema, no JVD, no murmur, normal peripheral pulses Abdomen/GI: normal bowel sounds, non tender, soft, no organomegaly Back: normal inspection, no CVA tenderness, no muscle spasm, normal range of motion Extremities/Musculoskelatal: normal inspection, no calf tenderness, normal capillary refill, normal range of motion, pelvis stable, + pedal edema Neurologic/Psych: almond paste mixer II-XII nml as tested, no motor/sensory deficits, alert, normal mood/affect, normal reflexes, oriented x 3 Skin: + rash (bilateral leg erythema and hot to touch, tender to palpation, most of legs bandaged, no seeping seen) Diagnostics Laboratory Results Results Past 24 Hours Test 07/28/16 12:41 Range/Units White Blood Count 9.54 4.8-10.8 K/uL Red Blood Count 3.58 4.2-5.4 M/uL Hemoglobin 10.2 12.0-16.0 g/dL Hematocrit 32.5 37-47 % Mean Corpuscular Volume 90.8 80-100 fL Mean Corpuscular Hemoglobin 28.5 25-34 pg Mean Corpuscular Hemoglobin Concent 31.4 32-36 g/dl Platelet Count 303 130-400 K/uL Mean Platelet Volume 11.1 7.4-10.4 fL Neutrophils (%) (Auto) 71.2 % Lymphocytes (%) (Auto) 12.3 % Monocytes (%) (Auto) 10.7 % Eosinophils (%) (Auto) 5.3 % Basophils (%) (Auto) 0.3 % Neutrophils # (Auto) 6.79 1.4-6.5 K/uL Lymphocytes # (Auto) 1.17 1.2-3.4 K/uL Monocytes # (Auto) 1.02 0.11-0.59 K/uL Eosinophils # (Auto) 0.51 0-0.5 K/uL Basophils # (Auto) 0.03 0-0.2 K/uL RDW Standard Deviation 55.0 36.4-46.3 fL RDW Coefficient of Variation 16.4 11.5-14.5 % Immature Granulocyte % (Auto) 0.2 % Immature Granulocyte # (Auto) 0.02 0.00-0.02 K/uL Sodium Level 148 136-145 mmol/L Potassium Level 3.6 3.5-5.1 mmol/L Chloride Level 114 98-107 mmol/L Carbon Dioxide Level 26 21-32 mmol/L Anion Gap 8.0 3-11 mmol/L Blood Urea Nitrogen 32 7-18 mg/dl Creatinine 1.40 0.60-1.20 mg/dl Estimated GFR () 40.7 Estimated GFR (Non- 35.1 BUN/Creatinine Ratio 23.1 10-20 Random Glucose 96 70-99 mg/dl Calcium Level 8.6 8.5-10.1 mg/dl Impression Assessment and Plan 81 yo female with chronic leg wounds and known Pseudomonas infection in the past - Bilateral lower leg cellulitis with open wounds, associated with PAD and venous insufficiency Cefepime BID, consult wound care and ID vitals stable, WBC normal, no signs of sepsis - CKD stage III: Cr 1.4, stable, follow daily - GERD: PPI - Neuropathy: chronic, stable Level of Care Med/Surg Advanced Directives Existing Living Will: Yes Existing Power of Creative Consultant: Yes Resuscitation Status FULL RESUSCITATION VTE Prophylaxis VTE Risk Assessment Done? Y/N: Yes Risk Level: High Given or contraindicated: Unfractionated heparin SQ Additional Copies To Jennifer. Neil D.O.
[2016-07-28] MEDS: HEPARIN SOD 5000 UNIT/0.5 ML CARP SQ SCH (21:37)
[2016-07-28] MEDS: ACETAMINOPHEN 325 MG TAB PO PRN (21:59)
[2016-07-28 23:56] VITALS: BP 141/69; PULSE 79; TEMP 36.9; O2SAT 97
[2016-07-29] VITALS: O2SAT 97
[2016-07-29] MEDS: CEFEPIME IV 1,000 MG in DEXTROSE 5% 100ML 100 ML IV SCH ×2 (01:55→13:42)
[2016-07-29] MEDS: ACETAMINOPHEN 325 MG TAB PO PRN (02:01)
[2016-07-29] MEDS: HEPARIN SOD 5000 UNIT/0.5 ML CARP SQ SCH ×2 (06:00→13:42)
[2016-07-29] MEDS ORDERED: LEVOTHYROXINE 150 MCG TAB PO SCH (06:30)
[2016-07-29 06:59] LABS: BASO % 0.5 %; BASO ABS # 0.04 K/uL (0-0.2); COMPLETE YES; EOS % 8.6 %; HEMATOCRIT 29.7 % (37-47); IG% 0.3 %; LYMPH % 19.1 %; LYMPH ABS # 1.45 K/uL (1.2-3.4); MEAN CELL VOLUME 91.7 fL (80-100); MEAN CORPUSCULAR HEMOGLOBIN 28.7 pg (25-34); MEAN CORPUSCULAR HGB CONC 31.3 g/dl (32-36); MEAN PLATELET VOLUME 11.3 fL (7.4-10.4); MONO % 10.5 %; PLATELET COUNT 263 K/uL (130-400); RED BLOOD COUNT 3.24 M/uL (4.2-5.4); WHITE BLOOD COUNT 7.59 K/uL (4.8-10.8)
[2016-07-29 07:26] VITALS: BP 125/66; PULSE 80; TEMP 36.7; O2SAT 95
[2016-07-29 07:32] LABS: BUN/CREATININE RATIO 22.8 (10-20); CALCIUM 8.2 mg/dl (8.5-10.1); CREATININE 1.1 mg/dl (0.60-1.20); POTASSIUM 3.4 mmol/L (3.5-5.1)
[2016-07-29] MEDS ORDERED: SIMVASTATIN 40 MG TAB PO SCH (08:00)
[2016-07-29] MEDS ORDERED: PANTOprazole SOD 40 MG TAB PO SCH (08:00)
[2016-07-29] MEDS: PENTOXIFYLLINE 400MG EXT REL TAB PO SCH ×2 (09:19→13:42)
[2016-07-29] MEDS ORDERED: POTASSIUM CHLORIDE 10 MEQ TABCR PO ONE (09:45)
--- NOTE | 2016-07-29 10:11 | Progress Note ---
Progress Note Date of Service Jul 29, 2016. Progress Note ID Consult Dictated # [id number] A/P: 1. LLE cellulitis -pseudomonas -Continue cefepime, will need course of IV abx post d/c, start with 14 days and will continue to follow post d/c at wound center -Wound care eval pending -She states her insurance will not cover abx at home, she may qualify for MTU infusions, will need once daily abx for this. If she qualifies for MTU can be changed to cefepime 2g IV daily with plans for follow up at wound center -leg much improved today -thank you
--- NOTE | 2016-07-29 10:34 | INFECT. DISEASE CONSULTATION ---
DATE OF CONSULTATION: 07/29/2016 REQUESTING PHYSICIAN: Dr. Garcia. HISTORY OF PRESENT ILLNESS: This is an 81-year-old female who was admitted from the wound care center yesterday after she was noted to have worsening left lower extremity cellulitis. She did have a wound culture obtained on the 22 of July which grew pseudomonas. This was resistant to fluoroquinolones. She was evaluated in the wound care center by both the wound care team as well as infectious diseases yesterday and it was felt that she would benefit from admission to the hospital as she had significant pain, weeping from her wound, lower extremity edema. Her most recent laboratory studies were from the and she also was found to have an elevated creatinine at that time. She will need to be placed on IV antibiotics; however, dosing could not be determined with her previous creatinine level. She was subsequently admitted to the hospital yesterday. Today, she states she is feeling overall better but still complains of some intermittent stabbing pain in the left lower extremity. She denies any fevers or chills. She has been up ambulating without difficulty. She was placed on cefepime and is tolerating this well. Her creatinine today is significantly improved from the 9th and is 1.1. She has been afebrile since admission and has no leukocytosis. All remaining review of systems are reviewed and are negative except for as noted above. PAST MEDICAL HISTORY: Significant for chronic kidney disease, hypertension, peripheral vascular disease, venous insufficiency, chronic wounds of the lower extremities, an AAA at 5 cm, GERD, and neuropathy. PAST SURGICAL HISTORY: Unremarkable. FAMILY HISTORY: Noncontributory. SOCIAL HISTORY: Significant for history of tobacco use. She has no alcohol or drug use. She does live with her family. ALLERGIES: SHE HAS ALLERGIES TO LATEX, DYE, ERYTHROMYCIN AND ALL AGUILAR MEDICATIONS. MEDICATIONS: Include Protonix, Zocor, Synthroid, subQ heparin, Trental, cefepime, Tylenol and Zofran. PHYSICAL EXAMINATION: VITAL SIGNS: She is afebrile, pulse 80, respiratory rate 16, blood pressure is 125/66 and oxygen saturation is 95-97% on room air. GENERAL: She is awake, alert and oriented x3. She is in no acute distress. HEENT: Mucous membranes are moist. Extraocular muscles are intact. HEART: Regular. LUNGS: Clear. ABDOMEN: Soft and nontender. EXTREMITIES: Examination of the lower extremities reveals dry-flaking skin on the right lower extremity with some chronic stasis changes. Examination of the left lower extremity reveals significant improvement from yesterday. There is no weeping. There is less edema; however, she still has significant erythema, although it is somewhat improved today. LABORATORY STUDIES: CBC today reveals a white blood cell count of 7.5, hemoglobin 9.3, hematocrit 29.7 and platelets are 263. Chemistry panel reveals a sodium of 148, potassium 3.4, chloride 114, bicarbonate 24, BUN 25, creatinine 1.1, glucose is 86. There are no cultures to review. Her previous wound culture from the is growing pseudomonas resistant to Cipro and Levaquin. IMAGING DATA: There is no imaging to review. ASSESSMENT AND PLAN: 1. Left lower extremity cellulitis. She will be continued on cefepime. I do not believe that her insurance will cover home antibiotics; however, she may qualify for antibiotics at the medical therapy unit. If this is the case, she can be transitioned to once daily cefepime dosed at 2 grams every 24 hours. This will not be ideal, but she will not be able to make it to the MTU for twice daily antibiotic infusions. If she remains medically stable, she will be stable for discharge once antibiotic infusions can be set up. She will need to have continued followup at the wound care center post-discharge. Thank you for this consultation.
[2016-07-29 14:28] VITALS: BP 125/66; PULSE 80; TEMP 36.7; O2SAT 95
[2016-07-29] MEDS ORDERED: CFP2IV IV (14:46)
--- NOTE | 2016-07-29 14:52 | Discharge Instructions ---
Discharge Instructions Admission Reason for Admission: Left Leg Cellulitis Discharge Discharge Diagnosis / Problem: Left leg cellulitis, Pseudomonas infection Discharge Goals Goal(s): Improve function, Improve disease control Activity Recommendations Activity Limitations: resume your previous activity Lifting Limitations: none Exercise/Sports Limitations: as tolerated Shower/Bathe: no limitations Driving or Machine Use: no limitations . Instructions / Follow-Up Instructions / Follow-Up Please report tomorrow to the MTU for Cefepime 2gm IV injection, you will received 14 days total FOLLOW UP - wound clinic as previously scheduled - call for appointment with Dr. Neil in 7-10 days to discuss further treatment Current Hospital Diet Patient's current hospital diet: Regular Diet Discharge Diet Recommended Diet: Regular Diet Pending Studies Studies pending at discharge: no Laboratory Results Last Resulted CBC 07/29/16 06:15 Red Blood Count 3.24, Mean Corpuscular Volume 91.7, Mean Corpuscular Hemoglobin 28.7, Mean Corpuscular Hemoglobin Concent 31.3, Mean Platelet Volume 11.3, Neutrophils (%) (Auto) 61.0, Lymphocytes (%) (Auto) 19.1, Monocytes (%) (Auto) 10.5, Eosinophils (%) (Auto) 8.6, Basophils (%) (Auto) 0.5, Neutrophils # (Auto ) 4.63, Lymphocytes # (Auto) 1.45, Monocytes # (Auto) 0.80, Eosinophils # (Auto ) 0.65, Basophils # (Auto) 0.04 Last Resulted BMP 07/29/16 06:15 Medical Emergencies . Who to Call and When: Medical Emergencies: If at any time you feel your situation is an emergency, please call 911 immediately. . Non-Emergent Contact Non-Emergency issues call your: Primary Care Provider, Specialist (Infectious disease) Call Non-Emergent contact if: you have a fever, your pain is worsening, you have any medication questions . . "Provider Documentation" section prepared by Ranjan Proctor. VTE Core Measure Inpt VTE Proph given/why not?: Unfractionated heparin SQ
[2016-07-29 15:24] VITALS: BP 115/61; PULSE 84; TEMP 36.7; O2SAT 98
--- NOTE | 2016-07-30 07:38 | Discharge Summary ---
Discharge Summary Date of Service Jul 30, 2016. Discharge Summary Admission Date: Jul 28, 2016 at 12:04 Discharge Date: Jul 29, 2016 Discharge Disposition: Home Principal Diagnosis: Left lower extremity cellulitis associated with wounds Problems/Secondary Diagnoses: Pseudomonas infection Peripheral vascular disease Venous insufficiency CKD stage III Procedures: PICC line placement Consultations: Infectious disease Medication Reconciliation New Medications: Cefepime HCl (Cefepime) 2 Gm Inj 2 GM IV DAILY for 14 Days Continued Medications: Furosemide (Lasix) 20 Mg Tab 1 TAB PO DAILY for 90 Days, #90 TAB 1 Refill Levothyroxine Sodium (Synthroid) 150 Mcg Tab 150 MCG PO DAILY Ondansetron Hcl (Zofran) 4 Mg Tab 4 MG PO PRN for Nausea, TAB Pantoprazole Sodium (Protonix) 40 Mg Tab 1 TAB PO DAILY for Bleeding for 30 Days, #30 TAB 5 Refills Pentoxifylline (Trental) 400 Mg Tabcr 400 MG PO TID Simvastatin (Zocor) 40 Mg Tab 40 MG PO DAILY Discharge Exam Patient had PICC line placed, tolerated well. Discussed with CM, set up for MTU once daily Cefepime infusion. Patient afebrile, WBC normal, feeling better overall, feels well enough to go home. Review of Systems: Constitutional: No chills, No fatigue, No fever, No problem reported, No sweats, No weakness, No weight loss Eyes: No diplopia, No discharge, No eye pain, No problem reported, No redness, No worsening of vision ENT: No dental problems, No hearing loss, No nasal symptoms, No problem reported, No sore throat, No tinnitus, No trouble swallowing, No unusual epistaxis Respiratory: No cough, No dyspnea at rest, No dyspnea on exertion, No hemoptysis, No problem reported, No shortness of breath, No sputum, No wheezing Cardiovascular: + edema, No PND, No chest pain, No claudication, No orthopnea, No palpitations, No problem reported Abdomen: No GI bleeding, No constipation, No diarrhea, No nausea, No pain, No problem reported, No vomiting Musculoskeletal: No calf pain, No joint pain, No muscle pain, No problem reported, No swelling Genitourinary - Female: No dysuria, No urinary frequency, No urinary incontinence, No urinary urgency Neurologic: No balance problems, No memory loss, No numbness/tingling, No paralysis, No problem reported, No vertigo, No weakness Integumentary: + rash (lower extremities bilaterally, swelling, weeping wounds) Physical Exam: General Appearance: WD/WN, no apparent distress Eyes: normal inspection, EOMI, sclerae normal ENT: normal ENT inspection, hearing grossly normal, pharynx normal Neck: supple, no adenopathy, no JVD, trachea midline Respiratory/Chest: chest non-tender, lungs clear, normal breath sounds, no respiratory distress, no accessory muscle use Cardiovascular: regular rate, rhythm, no edema, no gallop, no JVD, no murmur , normal peripheral pulses Abdomen / GI: normal bowel sounds, non tender, soft, no organomegaly Extremities: normal inspection, no calf tenderness, normal capillary refill , no pedal edema, normal range of motion Neurologic/Psychiatric: aircraft motor mechanic II-XII nml as tested, no motor/sensory deficits , alert, normal mood/affect, normal reflexes, oriented x 3 Skin: + rash (lower extremity skin much less warm, less erythema, no tenderness) Hospital Course 81 yo female with chronic leg wounds and known Pseudomonas infection in the past - Bilateral lower leg cellulitis with open wounds, associated with PAD and venous insufficiency Cefepime BID, consult wound care and ID vitals stable, WBC normal, no signs of sepsis ID recommends Cefepime 2gm IV daily since she cannot afford home IV infusions set up for MTU to start on 07/30, PICC line placed skin appears less red, less warm, no pain, wounds dressed follow up closely with wound clinic and then ID - CKD stage III: Cr 1.2, stable, follow daily, eating and drinking well - GERD: PPI - Neuropathy: chronic, stable Total Time Spent: Greater than 30 minutes This includes examination of the patient, discharge planning, medication reconciliation, and communication with other providers. Discharge Instructions Please refer to the electronic Patient Visit Report (Discharge Instructions) for additional information. Follow-Up Wound clinic ID - Dr. Neil Additional Copies To Aurelio Chew M.D.; Jennifer. Neil D.O.; Carlos Altamirano, DO
== END 2016-07-29 15:30 | disposition home or self-care (01) | DRG 603 ==
LOC: UNDOADMIN 11:25 → C.MS4W 11:25
PROVIDERS: ADMIT Hospitalist; ATTEND Hospitalist
PROC: 02HV33Z Insertion of Infusion Device into Superior Vena Cava, Percutaneous Approach (ICD-10-PCS; principal; 2016-07-29)
DX: L03.116 Cellulitis of left lower limb (principal); L03.115 Cellulitis of right lower limb; N18.3 Chronic kidney disease, stage 3 (moderate); I12.9 Hypertensive chronic kidney disease with stage 1 through stage 4 chronic kidney disease, or unspecified chronic kidney disease; K21.9 Gastro-esophageal reflux disease without esophagitis; G62.9 Polyneuropathy, unspecified; B96.5 Pseudomonas (aeruginosa) (mallei) (pseudomallei) as the cause of diseases classified elsewhere; I73.9 Peripheral vascular disease, unspecified; I87.2 Venous insufficiency (chronic) (peripheral); S81.801A Unspecified open wound, right lower leg, initial encounter; S81.802A Unspecified open wound, left lower leg, initial encounter; Z87.891 Personal history of nicotine dependence; Z79.899 Other long term (current) drug therapy; Z86.79 Personal history of other diseases of the circulatory system; I87.8 Other specified disorders of veins; X58.XXXA Exposure to other specified factors, initial encounter

== ENCOUNTER 2016-07-31 11:29 | Emergency (ER) | payer OTHER ==
[~2016-07-31 11:29] MED LIST changes: +CFP2IV IV
[2016-07-31] MEDS ORDERED: ROCURONIUM BROMIDE 10 MG/ML 10 ML VIAL IV ONE (11:30)
[2016-07-31 11:31] VITALS: TEMP 37.7
[2016-07-31 11:32] VITALS: O2SAT 96
[2016-07-31] MEDS ORDERED: SODIUM CHLORIDE 0.9% 1000ML 1,000 ML IV SCH (11:38)
[2016-07-31] MEDS ORDERED: RAPID SEQUENCE INDUCTION BAG ONE (11:40)
--- NOTE | 2016-07-31 11:57 | EMERGENCY ROOM VISIT NOTE ---
History Report prepared by Lluvia: Cinthia Davis Under the Supervision of: Dr. Meng Duncan D.O. First contact with patient: 11:33 Chief Complaint: UNRESPONSIVE Stated Complaint: UNRESPONSIVE History of Present Illness The patient is a 81 year old female who presents to the Emergency Room with complaints of unresponsiveness beginning at an unknown exact time early this morning. Per the patient's , the patient was found this morning unresponsive in the chair she sleeps in. She did have a fall last night as she tripped up the stairs. The patient did hit her head but denies LOC and was oriented X3 after the fall. Per the patient's son, he was called this morning around 10:30am. When he arrived he performed a sternal rub on the patient with no response. He notes that the patient did void herself last night. He thinks the symptoms began to occur around 2am this morning. He notes that the patient is being treated at the wound clinic for an infection to her leg. She was seen yesterday and given a dosage of Cefepime. The patient has no history of strokes and is not on blood thinners. This HPI is limited due to the patient's unresponsiveness. Source of History: family History Limited By: other (unresponsive) Position: other (global) Quality: other (unrepsonsive) Review of Systems See HPI for pertinent positives & negatives. A total of 10 systems reviewed and were otherwise negative. Past Medical & Surgical Medical Problems: (1) Acute kidney injury (2) Cellulitis of left lower extremity (3) Hypernatremia (4) Hypertension (5) Pseudomonas infection Family History Patient reports no known family medical history. Social History Smoking Status: Former Smoker Drug Use: none Marital Status: Housing Status: lives with family Occupation Status: retired Current/Historical Medications Scheduled Cefepime HCl (Cefepime), 2 GM IV DAILY Furosemide (Lasix), 1 TAB PO DAILY Levothyroxine Sodium (Synthroid), 150 MCG PO DAILY Pantoprazole Sodium (Protonix), 1 TAB PO DAILY Pentoxifylline (Trental), 400 MG PO TID Simvastatin (Zocor), 40 MG PO DAILY Scheduled PRN Ondansetron Hcl (Zofran), 4 MG PO for Nausea Allergies Coded Allergies: Erythromycin (Verified Allergy, Intermediate, RASH, 07/31/16) Iodinated Diagnostic Agents (Verified Allergy, Intermediate, RASH, 07/31/16 ) Latex1 -Allergic Contact Dermititis (Verified Allergy, Mild, RASH, 07/31/16 ) Lidocaine (Verified Allergy, Unknown, ALL "RUBEN", 07/31/16) Tetracaine (Verified Allergy, Unknown, ALL "RUBEN", 07/31/16) Physical Exam Vital Signs Date Time Temp Pulse Resp B/P Pulse Ox O2 Delivery O2 Flow Rate FiO2 07/31/16 12:44 13 07/31/16 12:39 12 07/31/16 12:34 12 07/31/16 12:29 95 12 147/113 100 07/31/16 12:24 97 12 153/70 100 07/31/16 12:23 100 07/31/16 12:19 101 12 162/97 100 07/31/16 12:14 102 12 100 07/31/16 12:09 104 12 202/141 100 07/31/16 12:06 271/130 07/31/16 12:04 126 13 100 07/31/16 11:59 0 07/31/16 11:54 0 07/31/16 11:49 134 0 95 07/31/16 11:48 98 07/31/16 11:45 105 12 202/141 100 07/31/16 11:44 105 184/78 100 07/31/16 11:39 112 07/31/16 11:39 106 94 07/31/16 11:37 174/110 07/31/16 11:32 92 Room Air 07/31/16 11:32 96 Non-Rebreather 15.0 07/31/16 11:31 37.7 115 23 174/110 96 Room Air Physical Exam GENERAL: Patient is unresponsive, responds only to loud verbal and painful stimuli. EYES: Right side neglect with eyes deviated to the left, pupils mid size and response to light bilaterally. EARS, NOSE, MOUTH AND THROAT: The nose is without any evidence of any deformity. Mucous membranes are dry tongue is midline NECK: The neck is nontender and supple. RESPIRATORY: Shallow respiratory with scattered rhonchi. CARDIOVASCULAR: Tachycardic rate nut regular rhythm noted there no murmurs rubs or gallops normal S1 normal S2 GASTROINTESTINAL: The abdomen is soft. Bowel sounds are present in all quadrants. Abdomen is nontender MUSCULOSKELETAL/EXTREMITIES: There is no evidence of gross deformity full range of motion is noted in the hips and shoulders SKIN: There is no obvious evidence of any rash. There are no petechiae, pallor or cyanosis noted. Pitting edema bilaterally with cellulitis in left leg. NEUROLOGIC: GCF 6. Right facial droop. Medical Decision & Procedures ER Provider Diagnostic Interpretation: Radiology results as stated below per my review and radiologist interpretation: CT HEAD WITHOUT CONTRAST (CT) CLINICAL HISTORY: Throat, head trauma, patient unresponsive. COMPARISON STUDY: 11/13/2008 TECHNIQUE: Axial CT of the brain is performed from the vertex to the skull base. IV contrast was not administered for this examination. CT DOSE: 1122.09 mGy.cm FINDINGS: There is a large medial left frontal hemorrhage measuring 4.7 cm in diameter. There is intraventricular extension of blood. There is a probable small subarachnoid component. There is also a small anterior parafalcine subdural component. There is surrounding white matter edema. There is effacement of the anterior aspect the left lateral ventricle. There is subfalcine herniation. There are extensive white matter hypodensities likely on a small vessel basis. There is developing hydrocephalus with dilatation of the temporal horns. There is fluid within the nasopharynx. IMPRESSION: 1. 4.7 cm left frontal hemorrhage with intraventricular extension. There is also an element of subarachnoid and subdural hematoma. There is mass effect with effacement of the anterior aspect of the left lateral ventricle. There is developing hydrocephalus with dilatation of the temporal horns. 2. The cab starter film reveals an endotracheal tube with right mainstem bronchus intubation. 3. This report will be called to the emergency room. Electronically signed by: Nico Yeboah M.D. 07/31/2016 12:10 PM Dictated Date/Time: 07/31/2016 12:04 PM CHEST ONE VIEW PORTABLE CLINICAL HISTORY: Stroke COMPARISON STUDY: 11/23/2015 FINDINGS: There is an endotracheal tube with its tip within the proximal right mainstem bronchus. There is a right-sided PICC catheter present. The heart is mildly enlarged. There is mild interstitial thickening similar to the prior study. There is no lobar consolidation. There is a nasogastric tube with its tip at the level of the gastric cardia.[ IMPRESSION: 1. Endotracheal tube with its tip in the proximal right mainstem bronchus 2. A catheter with its tip in the superior vena cava 3. Nasogastric tube with its tip at the level of the gastric cardia 4. Interstitial thickening. No evidence of lobar consolidation. Electronically signed by: Nico Yeboah M.D. 07/31/2016 12:19 PM Dictated Date/Time: 07/31/2016 12:[address] DOSE: HISTORY: fall TECHNIQUE: Multiaxial CT images of the cervical spine were performed and reformatted in the sagittal and coronal plane without the use of contrast. COMPARISON: None. FINDINGS: No fractures. No subluxation. Prevertebral soft tissues and the C1-C2 interval are intact. No pneumothorax. An endotracheal tube is identified. Moderate to severe disc space narrowing seen throughout the cervical spine. IMPRESSION: No fractures within the cervical spine. Electronically signed by: Weston Hyman M.D. 07/31/2016 12:14 PM Dictated Date/Time: 07/31/2016 12:08 PM Laboratory Results 07/31/16 12:25 Red Blood Count 3.79, Mean Corpuscular Volume 90.0, Mean Corpuscular Hemoglobin 28.2, Mean Corpuscular Hemoglobin Concent 31.4, Mean Platelet Volume 11.1, Neutrophils (%) (Auto) 76.9, Lymphocytes (%) (Auto) 13.4, Monocytes (%) (Auto) 7.5, Eosinophils (%) (Auto) 1.3, Basophils (%) (Auto) 0.4, Neutrophils # (Auto) 6.55, Lymphocytes # (Auto) 1.14, Monocytes # (Auto) 0.64, Eosinophils # (Auto) 0.11, Basophils # (Auto) 0.03 07/31/16 12:25 Test 07/31/16 11:38 07/31/16 11:39 07/31/16 12:10 07/31/16 12:25 Bedside Glucose 128 mg/dl (70-90) Bedside Prothrombin Time INR 1.0 (0.9-1.1) Urine Opiates Screen NEG (NEG) Urine Methadone, Qualitative NEG (NEG) Urine Barbiturates NEG (NEG) Urine Phencyclidine (PCP) Level NEG (NEG) Ur Amphetamine/Methamphetamine NEG (NEG) MDMA (Ecstasy) Screen NEG (NEG) Urine Benzodiazepines Screen NEG (NEG) Urine Cocaine Metabolite NEG (NEG) Urine Marijuana (THC) NEG (NEG) White Blood Count 8.51 K/uL (4.8-10.8) Red Blood Count 3.79 M/uL (4.2-5.4) Hemoglobin 10.7 g/dL (12.0-16.0) Hematocrit 34.1 % (37-47) Mean Corpuscular Volume 90.0 fL (80-100) Mean Corpuscular Hemoglobin 28.2 pg (25-34) Mean Corpuscular Hemoglobin Concent 31.4 g/dl (32-36) Platelet Count 306 K/uL (130-400) Mean Platelet Volume 11.1 fL (7.4-10.4) Neutrophils (%) (Auto) 76.9 % Lymphocytes (%) (Auto) 13.4 % Monocytes (%) (Auto) 7.5 % Eosinophils (%) (Auto) 1.3 % Basophils (%) (Auto) 0.4 % Neutrophils # (Auto) 6.55 K/uL (1.4-6.5) Lymphocytes # (Auto) 1.14 K/uL (1.2-3.4) Monocytes # (Auto) 0.64 K/uL (0.11-0.59) Eosinophils # (Auto) 0.11 K/uL (0-0.5) Basophils # (Auto) 0.03 K/uL (0-0.2) RDW Standard Deviation 54.1 fL (36.4-46.3) RDW Coefficient of Variation 16.5 % (11.5-14.5) Immature Granulocyte % (Auto) 0.5 % Immature Granulocyte # (Auto) 0.04 K/uL (0.00-0.02) Prothrombin Time 11.2 SECONDS (9.0-12.0) Prothromb Time International Ratio 1.0 (0.9-1.1) Activated Partial Thromboplast Time 58.3 SECONDS (21.0-31.0) Partial Thromboplastin Ratio 2.2 Anion Gap 12.0 mmol/L (3-11) Estimated GFR () 37.5 Estimated GFR (Non- 32.3 BUN/Creatinine Ratio 19.8 (10-20) Calcium Level 9.0 mg/dl (8.5-10.1) Total Creatine Kinase 226 U/L (26-192) Creatine Kinase MB 4.6 ng/ml (0.5-3.6) Creatine Kinase MB Ratio 2.0 (0-3.0) Troponin I < 0.015 ng/ml (0-0.045) Laboratory results per my review. Medications Administered Medications (Trade) Dose Ordered Sig/Jose Route Start Time Stop Time Status Last Admin Dose Admin Sodium Chloride (Nss 1000ml) 1,000 ml @ 50 mls/hr Q20H IV 07/31/16 11:38 07/31/16 13:45 DC 07/31/16 12:43 50 MLS/HR Miscellaneous 1 ea 1 ea STK-MED ONCE N/A 07/31/16 11:40 07/31/16 11:42 DC 07/31/16 12:43 1 EA Levetiracetam/ Dextrose (Keppra Iv/D5 250ml) 270 ml @ 999 mls/hr ONE ONCE IV 07/31/16 12:15 07/31/16 12:31 DC 07/31/16 12:43 999 MLS/HR Procedure Endotracheal Intubation Indication Unresponsive. The patient was on 100% oxygen via NRB prior to the procedure. Suction, airway equipment, RSI drugs, respiratory equipment, and appropriate personnel were prepared prior to the initiation of the procedure. A time out was taken. Induction was performed with Rocuronium. After observing the clinical benefit of the medications, the airway was easily visualized utilizing a intially Kellogg Scope was attempted then switched to Miranda blade. A 7.5 size ETT tube was placed atraumatically to 25 cm using standard technique. The cuff inflated without signs of malfunction. There were bilateral breath sounds, positive colormetric change, no gastric sounds, a good capnography waveform, and post procedure pulse oximetry was 98%. There were no complications. ECG Indication: other (unresponsive) Rate (beats per minute): 110 Rhythm: sinus tachycardia Findings: nonspecific-ST abn (diffusely), PVC (frequent) Comparison ECG Date: no prior available ED Course 1135: The patient was evaluated in room A1. A complete history and physical examination were performed. 1138: Sodium Chloride 1,000 ml @ 50 mls/hr IV. 1145: Patient is not a candidate for TPA due to unknown time of symptom onset. 1147: See procedure note for Endotracheal Intubation. 1202: I discussed the plan for transfer via helicopter to [facility] for further treatment with the patient's family. 1208: Nicardipine HCl 25 mg/ Sodium Chloride 250 ml @ 0 mls/hr Protocol IV. 1210: I discussed the patient's results with Dr. Yesika Kirk and he agrees to patient transfer. Helicopter will be sent from [facility] for patient. 1215: Levetiracetam 2,000 mg/ Dextrose 270 ml @ 999 mls/hr IV. 1218: Dr. Neil will accept the patient for transfer. 1235: The patient is being transferred now. Medical Decision Differential diagnosis: Etiologies such as metabolic, infection, hypoglycemia, electrolyte abnormalities , cardiac sources, intracerebral event, toxicologic, neurologic, as well as others were entertained. Nursing notes reviewed. Additional history is obtained from the patient's family members. The patient is an 81-year-old female who presented to the emergency department for altered mental status. The patient arrived at the emergency department with symptoms that I feel were consistent with an acute neurologic event. She had right sided neglect with a left gaze preference. She was aphasic and would not follow commands. She seemed to have decorticate posturing in the right upper and right lower extremity. She also appeared to have a slight right facial droop. She appeared to move the left upper and left lower extremity at times but with no purpose. The patient's CT appear to have signs of acute hemorrhagic CVA but also had some signs of subarachnoid and subdural hematoma. The patient' s family members state that she did have a fall last evening and they were unsure if this was contributory. The patient does not take anticoagulation at this time. I discussed the patient's laboratory and radiographic studies with the family members. She was intubated quickly for airway protection. I discussed her case with the on-call dust mill operator as well as the emergency department at [facility]. The patient's symptoms began sometime last evening. According to her significant other she was found this way without a definite onset of the symptoms. For this reason she was not made a stroke alert. The patient was felt to have severe symptoms at this time. She was treated with Keppra as well as Cardene IV in the emergency department. Her blood pressure slowly started to improve. The patient was transferred to [facility] via helicopter. She was reevaluated multiple times. She did not receive any sedation and yet did not have any improvement in her neurologic status while she was in the emergency department at [facility]. Consults Time Called: 1208 Consulting Physician: Dr. Yesika Kirk Returned Call: 1210 I discussed the patient's results with Dr. Yesika Kirk and he agrees to patient transfer. Helicopter will be sent from [facility] for patient. Additional Consults: Time Called: 1216 Consulted Physician: Dr. Jolynn Kirk Returned Call: 1218 Additional Comments: Dr. Neil will accept the patient for transfer. Impression Primary Impression: Hemorrhagic cerebrovascular accident (CVA) Additional Impressions: Respiratory failure Subarachnoid hemorrhage Subdural hematoma Critical Care I have personally spent greater than 60 minutes of critical care time in the direct management of this patient. This includes bedside care, interpretation of diagnostic studies, and testing, discussion with consultants, patient, and family members, and other required patient management activities. This 60 minutes is in excess of all separately billable procedures. Scribe Attestation The scribe's documentation has been prepared under my direction and personally reviewed by me in its entirety. I confirm that the note above accurately reflects all work, treatment, procedures, and medical decision making performed by me. Departure Information Dispostion Transfer Acute Care Facility Referrals Aurelio Chew M.D. (PCP) Problem Qualifiers Additional Impressions: Respiratory failure Chronicity: acute Respiratory failure complication: unspecified whether with hypoxia or hypercapnia Qualified Codes: J96.00 - Acute respiratory failure, unspecified whether with hypoxia or hypercapnia
[2016-07-31] MEDS ORDERED: NiCARDipine IV 25 MG in SODIUM CHLORIDE 0.9% 250ML 240 ML IV STA (12:08)
--- NOTE | 2016-07-31 12:11 | DIAGNOSTIC IMAGING REPORT ---
CT HEAD WITHOUT CONTRAST (CT) CLINICAL HISTORY: Throat, head trauma, patient unresponsive. COMPARISON STUDY: 11/13/2008 TECHNIQUE: Axial CT of the brain is performed from the vertex to the skull base. IV contrast was not administered for this examination. CT DOSE: 1122.09 mGy.cm FINDINGS: There is a large medial left frontal hemorrhage measuring 4.7 cm in diameter. There is intraventricular extension of blood. There is a probable small subarachnoid component. There is also a small anterior parafalcine subdural component. There is surrounding white matter edema. There is effacement of the anterior aspect the left lateral ventricle. There is subfalcine herniation. There are extensive white matter hypodensities likely on a small vessel basis. There is developing hydrocephalus with dilatation of the temporal horns. There is fluid within the nasopharynx. IMPRESSION: 1. 4.7 cm left frontal hemorrhage with intraventricular extension. There is also an element of subarachnoid and subdural hematoma. There is mass effect with effacement of the anterior aspect of the left lateral ventricle. There is developing hydrocephalus with dilatation of the temporal horns. 2. The lombardi developer film reveals an endotracheal tube with right mainstem bronchus intubation. 3. This report will be called to the emergency room. Electronically signed by: Nico Yeboah M.D. 07/31/2016 12:10 PM Dictated Date/Time: 07/31/2016 12:04 PM
[2016-07-31] MEDS ORDERED: LEVETIRACETAM IV 2,000 MG in DEXTROSE 5% 250ML 250 ML IV ONE (12:15)
--- NOTE | 2016-07-31 12:15 | DIAGNOSTIC IMAGING REPORT ---
CERVICAL SPINE CT CT DOSE: HISTORY: fall TECHNIQUE: Multiaxial CT images of the cervical spine were performed and reformatted in the sagittal and coronal plane without the use of contrast. COMPARISON: None. FINDINGS: No fractures. No subluxation. Prevertebral soft tissues and the C1-C2 interval are intact. No pneumothorax. An endotracheal tube is identified. Moderate to severe disc space narrowing seen throughout the cervical spine. IMPRESSION: No fractures within the cervical spine. Electronically signed by: Weston Hyman M.D. 07/31/2016 12:14 PM Dictated Date/Time: 07/31/2016 12:08 PM
--- NOTE | 2016-07-31 12:20 | DIAGNOSTIC IMAGING REPORT ---
CHEST ONE VIEW PORTABLE CLINICAL HISTORY: Stroke COMPARISON STUDY: 11/23/2015 FINDINGS: There is an endotracheal tube with its tip within the proximal right mainstem bronchus. There is a right-sided PICC catheter present. The heart is mildly enlarged. There is mild interstitial thickening similar to the prior study. There is no lobar consolidation. There is a nasogastric tube with its tip at the level of the gastric cardia.[ IMPRESSION: 1. Endotracheal tube with its tip in the proximal right mainstem bronchus 2. A catheter with its tip in the superior vena cava 3. Nasogastric tube with its tip at the level of the gastric cardia 4. Interstitial thickening. No evidence of lobar consolidation. Electronically signed by: Nico Yeboah M.D. 07/31/2016 12:19 PM Dictated Date/Time: 07/31/2016 12:17 PM
[2016-07-31 12:29] VITALS: BP 147/113; PULSE 95; O2SAT 100
[2016-07-31 12:30] LABS: BASO % 0.4 %; BASO ABS # 0.03 K/uL (0-0.2); COMPLETE YES; EOS % 1.3 %; HEMATOCRIT 34.1 % (37-47); IG% 0.5 %; LYMPH % 13.4 %; LYMPH ABS # 1.14 K/uL (1.2-3.4); MEAN CORPUSCULAR HEMOGLOBIN 28.2 pg (25-34); MEAN CORPUSCULAR HGB CONC 31.4 g/dl (32-36); MEAN PLATELET VOLUME 11.1 fL (7.4-10.4); MONO % 7.5 %; NEUT % 76.9 %; PLATELET COUNT 306 K/uL (130-400); RED BLOOD COUNT 3.79 M/uL (4.2-5.4); WHITE BLOOD COUNT 8.51 K/uL (4.8-10.8)
[2016-07-31 12:47] LABS: PARTIAL THROMBOPLASTIN RATIO 2.2; PROTHROMBIN TIME (PATIENT) 11.2 SECONDS (9.0-12.0)
[2016-07-31 12:48] LABS: BLOOD UREA NITROGEN 30 mg/dl (7-18); BUN/CREATININE RATIO 19.8 (10-20); CARBON DIOXIDE 20 mmol/L (21-32); CHLORIDE 112 mmol/L (98-107); GLUCOSE 134 mg/dl (70-99); POTASSIUM 3.8 mmol/L (3.5-5.1); SODIUM 144 mmol/L (136-145)
[2016-07-31 12:59] LABS: BENZODIAZEPINE, URINE NEG (NEG); COCAINE,URINE NEG (NEG); PHENCYCLIDINE, URINE NEG (NEG)
--- NOTE | 2016-08-19 14:36 | EDITING REQUIRED CODING QUERY ---
TREATMENT RENDERED WITHOUT A DIAGNOSIS 35 To promote full compliance with coding requirements relating to patient care, physician participation is requested in all cases of jewelry bench molder uncertainty. Please assist us with the question(s) below: Coding Question: YOUR FINAL DX OF HEMORRHAGIC CVA, WAS THIS TRAUMATIC OR NONTRAUMATIC? THE PATIENT DID HAVE A FALL THE NIGHT BEFORE Provider Response: There was a history of a fall but according to the family, the patient was acting normally after the fall. I am not sure if it was traumatic or not. Ten Thank you Liza Sharma
== END 2016-07-31 12:58 | disposition short-term general hospital (02) ==
LOC: EDBD 11:29 → C.ED 11:29
DX: I60.9 Nontraumatic subarachnoid hemorrhage, unspecified (principal); J96.90 Respiratory failure, unspecified, unspecified whether with hypoxia or hypercapnia; I62.00 Nontraumatic subdural hemorrhage, unspecified; R41.82 Altered mental status, unspecified; R29.810 Facial weakness; N17.9 Acute kidney failure, unspecified; L03.116 Cellulitis of left lower limb; E87.0 Hyperosmolality and hypernatremia; I10 Essential (primary) hypertension; Z87.891 Personal history of nicotine dependence; Z79.899 Other long term (current) drug therapy